=== PATIENT | female | born 1950 | race Caucasian/White ===

== ENCOUNTER 2017-11-20 16:02 | Inpatient (IN) ==
[2017-11-20] MEDS ORDERED: NS 1,000 ML IV ONE (17:00)
[2017-11-20] MEDS ORDERED: MORPHINE SULFATE 4mg INJECTION IVP ONE (17:00)
[2017-11-20] MEDS ORDERED: ONDANSETRON 4 MG/2 ML INJECTION IVP ONE (17:00)
--- NOTE | 2017-11-20 17:00 | Emergency Department Report ---
Abdominal Pain HPI - General Chief Complaint: Abdominal Pain <Arnulfo Winters C - 11/20/17 21:37> Stated Complaint: abd pain, N/D/V, blood in urine <Arnulfo Winters C - 11/20/17 21 :37> Time Seen by Provider: 11/20/17 17:00 <Arnulfo Winters Natalie - 11/20/17 21:37> Source: patient, family <Rk Sabillon Q - 11/20/17 18:44> Mode of arrival: wheelchair <Rk Sabillon Q - 11/20/17 18:44> Limitations: no limitations <Rk Sabillon Q - 11/20/17 18:44> - History of Present Illness HPI narrative: Patient is a 67-year-old female, wheelchair-bound neurogenic bladder. Patient states she gets multiple UTIs in the past. Patient saw her primary medical physician on Friday for general checkup with no issues. Patient on Friday began to feel some mild nausea with some frequency and some hematuria. Patient does have a Bactrim prescription to take as needed for urinary tract infection started the Bactrim on Friday. Patient continuing to have nausea which she admits she gets sometimes with the Bactrim, and increasing feeling of not well, now complaining of left lower quadrant pain. Patient subjective chills no fevers that she can identify at home. Patient continuing have nausea no emesis has had 2 episodes of diarrhea in the last 24 hours. Patient referred to the ER for evaluation by primary medical physician <Rk Sabillon Q - 11/20/17 18:44> - Related Data Home Medications Medication Instructions Recorded Confirmed Aspirin [Ecotrin] 81 mg PO DAILY 11/20/17 11/20/17 Baclofen Pump 1 dose INJ DAILY 11/20/17 11/20/17 Diazepam [Valium] 5 mg PO HS 11/20/17 11/20/17 Estradiol Vag Cream [Estrace Vag 1 applicatio TOP DAILY 11/20/17 11/20/17 Cream] Hydrocodone/APAP 5/325 [[place] 1 - 2 tab PO TID PRN 11/20/17 11/20/17 5/325] Lisinopril [Prinivil] 10 mg PO HS 11/20/17 11/20/17 Omeprazole [Omeprazole] 40 mg PO DAILY 11/20/17 11/20/17 Oxaprozin [Daypro] 600 mg PO BID 11/20/17 11/20/17 Sertraline [Zoloft] 200 mg PO DAILY 11/20/17 11/20/17 Sulfamethox/Tmp Ds *Ed Prepack 1 tab PO BID 11/20/17 11/20/17 [Bactrim Ds 800/160 *Ed Prepack*] <Arnulfo Winters - 11/20/17 21:37> Allergies Allergy/AdvReac Type Severity Reaction Status Date / Time tolterodine [From Detrol] AdvReac Intermediate Nausea Verified 11/20/17 16:25 ciprofloxacin AdvReac Unknown EXTREME Verified 11/20/17 16:32 WEAKNESS AND NAUSEA levofloxacin AdvReac Unknown EXTREME Verified 11/20/17 16:32 NAUSEA <Arnulfo Winters - 11/20/17 21:37> Review of Systems Constitutional: Reports: chills, weakness. Denies: fever <Rk Sabillon Q - 11/20/17 18:44> Eyes: Denies: eye pain, eye discharge <Rk Sabillon Q - 11/20/17 18:44> ENT: Denies: throat pain, dental pain <Jonelle Sabillonn Q - 11/20/17 18:44> Cardiovascular: Denies: chest pain, palpitations, dyspnea on exertion <Rk Sabillon Q - 11/20/17 18:44> Respiratory: Denies: cough, dyspnea, wheezes <Jonelle Sabillonn Q - 11/20/17 18:44 > Gastrointestinal: Reports: abdominal pain, nausea, diarrhea. Denies: vomiting <Rk Sabillon Q - 11/20/17 18:44> Genitourinary: Reports: frequency, hematuria. Denies: dysuria <Jonelle Sabillonn Q - 11/20/17 18:44> Neurological: Denies: headache <Jonelle Sabillonn Q - 11/20/17 18:44> Psychiatric: Denies: anxiety <Jonelle Sabillonn Q - 11/20/17 18:44> Endocrine: Denies: fatigue <Jonelle Sabillonn Q - 11/20/17 18:44> Hematological/Lymphatic: Denies: easy bleeding <Rk Sabillon Q - 11/20/17 18: 44> PFSH Patient Stated Medical History Hypertension Yes Gastroesophageal Reflux Yes Disease Hx Urinary Tract Infection Yes: started bactrim friday11-17-17 Other Musculoskeletal Yes: intrathecal baclofen pump Depression Yes <Arnulfo Winters C - 11/20/17 21:37> Patient Stated Medical History Hypertension Yes Gastroesophageal Reflux Yes Disease Hx Urinary Tract Infection Yes: started bactrim friday11-17-17 Other Musculoskeletal Yes: intrathecal baclofen pump Depression Yes <Rk Sabillon Q - 11/20/17 17:00> Surgical History: Cholecystectomy <Rk Sabillon Q - 11/20/17 18:44> - Social History Smoking status: Never smoker <Rk Sabillon Q - 11/20/17 17:00> Substance use type: does not use <Rk Sabillon Q - 11/20/17 18:44> Alcohol intake frequency: does not drink <Rk Sabillon Q - 11/20/17 18:44> Physical Exam - General General appearance: alert, in no apparent distress <Rk Sabillon Q - 18:44> - Head Head exam: normocephalic <Rk Sabillon Q - 11/20/17 18:44> - Eye Eye exam: Present: PERRL, EOMI <Rk Sabillon Q - 11/20/17 18:44> - ENT ENT exam: Present: normal oropharynx, mucous membranes moist <Rk Sabillon Q - 11/20/17 18:44> - Neck Neck exam: Present: full ROM, trachea midline <Rk Sabillon Q - 11/20/17 18: 44> - Chest Chest inspection: Present: symmetric chest wall rise. Absent: tenderness < Rk Sabillon Q - 11/20/17 18:44> - Respiratory Respiratory exam: Present: normal lung sounds bilaterally. Absent: respiratory distress, wheezes, stridor <Rk Sabillon Q - 11/20/17 18:44> - Cardiovascular Cardiovascular exam: Present: regular rate, normal rhythm, normal heart sounds <Rk Sabillon Q - 11/20/17 18:44> - Abdominal Exam Abdominal exam: Present: soft, tenderness (left lower quadrant tenderness), guarding, normal bowel sounds. Absent: distention, rebound <Rk Sabillon Q - 04/12/18 18:44> - Skin Skin exam: Present: warm, dry <Rk Sabillon Q - 11/20/17 18:44> - Neurological Exam Neurological exam: Present: alert, oriented X3 <Rk Sabillon Q - 11/20/17 18: 44> - Psychiatric Psychiatric exam: Present: normal affect, normal mood <Rk Sabillon Q - 11/20 18:44> Course Vital Signs Pulse Rate 66 11/20/17 16:05 Respiratory Rate 20 11/20/17 16:05 Blood Pressure 155/70 H 11/20/17 16:05 Pulse Oximetry 95 11/20/17 16:05 Pulse Rate 66 11/20/17 19:30 Respiratory Rate 16 11/20/17 19:00 Blood Pressure 127/59 11/20/17 19:30 Pulse Oximetry 95 11/20/17 19:30 <Arnulfo Winters C - 11/20/17 21:37> Vital Signs Pulse Rate 66 11/20/17 16:05 Respiratory Rate 20 11/20/17 16:05 Blood Pressure 155/70 H 11/20/17 16:05 Pulse Oximetry 95 11/20/17 16:05 Pulse Rate 68 11/20/17 16:41 Respiratory Rate 16 11/20/17 16:41 Blood Pressure 136/65 11/20/17 16:41 Pulse Oximetry 95 11/20/17 16:41 <Rk Sabillon Q - 11/20/17 17:00> Abdominal Pain - MDM Narrative Medical decision making narrative: Labs / imaging were discussed in detail with the patient and family and questions are answered. She is given gentle IV hydration. She is given Rocephin 1 g intravenously. She does not meet sepsis criteria in the emergency department. She will be admitted for UTI, dehydration , and acute kidney injury. Patient is in agreement with the current plan of management. She is discussed with Dr. Devendra Gallagher and admitted to his service in improved condition. No further orders from accepting physician who is in agreement with the current plan of management. She is admitted to the hospitalist service in improved condition. She was given parental narcotic and antiemetic medication intravenously with improvement of symptoms. Temp: 98.8 F. <Arnulfo Winters - 11/20/17 20:28> - Differential Diagnosis Differential diagnosis: Likely: abdominal pain, acute appendicitis, calculus of kidney, constipation, diverticulitis, endometriosis, gastroenteritis, pancreatitis, small bowel obstruction <Rk Sabillon Q - 11/20/17 18:44> - Lab Data Result diagrams: 11/20/17 17:14 11/20/17 17:14 <Arnulfo Winters C - 11/20/17 21:37> Lab Results 11/20/17 11/20/17 11/20/17 Range/Units 17:14 17:14 17:14 WBC 8.0 (4.5-11.0) T/MM3 RBC 3.81 L (4.00-5.20) M/MM3 Hgb 12.4 (12-16) GM/DL Hct 38.5 (36-46) % MCV 101.0 H (80-100) UM3 MCH 32.5 (26-34) UUG MCHC 32.2 (31-37) GM/DL RDW Std Deviation 55.3 H (36.9-50.2) FL Plt Count 167 (130-400) T/MM3 MPV 10.2 (9.4-12.4) UM3 Immature Gran % (Auto) 0.4 (0.0-0.5) % Neut % (Auto) 64.2 (33-66) % Lymph % (Auto) 28.7 (23-45) % [place] % (Auto) 5.5 (0-9.0) % Eos % (Auto) 1.1 (0-4) % Baso % (Auto) 0.1 (0-2) % Neut # (Auto) 5.2 (1.8-7.7) T/MM3 Lymph # (Auto) 2.3 (1-4.8) T/MM3 [place] # (Auto) 0.4 (0-0.8) T/MM3 Eos # (Auto) 0.1 (0-0.5) T/MM3 Baso # (Auto) 0.0 (0-0.2) T/MM3 Abs Immat Gran (auto) 0.03 (0.00-0.03) T/MM3 Turbidity < 20 (0-20) Sodium 142 (134-144) MEQ/L Potassium 5.2 H (3.6-5) MEQ/L Chloride 108 H (98-107) MEQ/L Carbon Dioxide 19 L (22-30) MEQ/L Anion Gap 15 (5-15) meq/L BUN 45.0 H (7-17) MG/DL Creatinine 2.6 H (0.7-1.2) mg/dL GFR Calculation 18 BUN/Creatinine Ratio 17 (6-26) RATIO Glucose 82 (65-110) MG/DL Calculated Osmolality 284 H (261-280) MOSM/KG Calcium 9.3 (8.4-10.2) MG/DL Total Bilirubin 0.30 (0.20-1.30) MG/DL Icterus Index < 2 (0-7) AST 23 (14-36) U/L ALT 14 (1-35) U/L Alkaline Phosphatase 76 (38-126) U/L Troponin I < 0.012 (0-0.12) ng/ml Total Protein 6.7 (6.3-8.2) g/dL Albumin 4.0 (3.5-5.0) g/dL Globulin 2.7 (2.4-3.6) G/DL Albumin/Globulin Ratio 1.5 (1.1-2.2) RATIO Lipase 129 (23-300) U/L Specimen Hemolysis 24 (0-25) Ur Collection Type Urine, void-cc/notcc Urine Color Yellow (YELLOW) Urine Clarity Sl cloudy Urine pH 6.0 (5.0-8.0) Ur Specific [place] 1.025 (1.015-1.025) Urine Protein 2+ A (NEGATIVE) Urine Glucose (UA) Negative (NEGATIVE) Urine Ketones Trace A (NEGATIVE) Urine Occult Blood 3+ A (NEGATIVE) Urine Nitrate Positive A (NEGATIVE) Urine Bilirubin Negative (NEGATIVE) Urine Urobilinogen 0.2 (NORMAL) EU/DL Ur Leukocyte Esterase 3+ A (NEGATIVE) Urine RBC 3-5 H (0-3) /HPF Urine WBC Tntc H (0-5) /HPF Urine Bacteria 4+ H (NEGATIVE) Ur Culture Indicated? Cult reflexed &setup <Arnulfo Winters 11/20/17 20:28> - Radiology Data CT abdomen/pelvis: No generalized ileus or obstruction. Scattered diverticuli without diverticulitis. Possible cystitis. Small hiatal hernia. <Arnulfo Winters 11/20/17 20:28> Disposition Clinical Impression: KALI (acute kidney injury), Dehydration UTI (urinary tract infection) Qualifiers: Urinary tract infection type: acute cystitis Hematuria presence: with hematuria Qualified Code(s): N30.01 - Acute cystitis with hematuria <Arnulfo Winters 11/20/17 20:28> Disposition: 02 To [facility] <Arnulfo Winters 11/20/17 20:28> Condition: Improved <Arnulfo Winters 11/20/17 20:28> Instructions: <Arnulfo Winters 11/20/17 21:37> Prescriptions: No Action Aspirin [Ecotrin] 81 mg PO DAILY Omeprazole [Omeprazole] 40 mg PO DAILY Baclofen Pump 1 dose INJ DAILY Sulfamethox/Tmp Ds *Ed Prepack [Bactrim Ds 800/160 *Ed Prepack*] 1 tab PO BID Lisinopril [Prinivil] 10 mg PO HS Hydrocodone/APAP 5/325 [[place] 5/325] 1 - 2 tab PO TID PRN PRN Reason: Pain Sertraline [Zoloft] 200 mg PO DAILY Diazepam [Valium] 5 mg PO HS Estradiol Vag Cream [Estrace Vag Cream] 1 applicatio TOP DAILY Oxaprozin [Daypro] 600 mg PO BID <Arnulfo Winters 11/20/17 21:37> Referrals: Albert Ramos MD [Primary Care Provider] - <Arnulfo Winters 11/20/17 21:37> Forms: <Arnulfo Winters 11/20/17 21:37> Time of Disposition: 18:32 (Admit. Dr. Gallagher. ) <Arnulfo Winters 11/20/17 20:28 > - Seen By: physician <Arnulfo Winters 11/20/17 20:28>
--- OUTSIDE RECORDS SUMMARY | 2017-11-20 17:17 | External Medical Summary | Referral Summary ---
:1950 Author Organization [facility] [place] [id number] Care Team Providers Name Role Phone Albert Ramos Primary Care Physician Encounter [facility] [id number] Date(s): 05/17/16 - 05/17/16 [facility] [place] [phone] [place] Discharge Diagnosis: Abnormal blood sugar Discharge Diagnosis: Adult-onset obesity Discharge Diagnosis: Wheelchair dependent Discharge Diagnosis: Depression Discharge Diagnosis: GERD without esophagitis Discharge Diagnosis: Edema Discharge Diagnosis: Acute UTI Discharge Diagnosis: CKD (chronic kidney disease), stage 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 Discharge Disposition: 01-Home or Self Care Attending Physician: Albert Ramos MD Admitting Physician: Albert aRmos MD Vital Signs Most recent to oldest [Reference Range]: 1 Blood Pressure [90-140/60-90 mmHg] 140/90 mmHg (05/17/16 1:10 PM) Problem List Condition Effective Dates Status Health Status Informant Adult-onset obesity(Confirmed) Active Abnormal blood sugar(Confirmed) Active CKD (chronic kidney disease), stage Active II(Confirmed) Cough(Confirmed) Active Depression(Confirmed) Active Depression(Confirmed) Active GERD without esophagitis(Confirmed) Active History of IBS(Confirmed) Active Hereditary sensory motor Active neuropathy(Confirmed) Hereditary spastic paraplegia Active (disorder)(Confirmed) Hyperlipidemia(Confirmed) 2008 Active Hypertension(Confirmed) 2008 Active Irritable bowel syndrome(Confirmed) Active Muscle spasticity(Confirmed) Active Neuromuscular disorder(Confirmed) Active Spasm (finding)(Confirmed) Active Spastic paraplegia, Active hereditary(Confirmed) Wheelchair dependent(Confirmed) Active Allergies, Adverse Reactions, Alerts Substance Reaction Severity Status ciprofloxacin Active Detrol1 Active levofloxacin Active 1extreme weakness Medications albuterol CFC free 90 mcg/inh inhalation aerosol 2 puffs, Inhalation, q4hr, as needed for wheezing, # 18 g, 0 Refill(s), Pharmacy : [facility] [id number] Start Date: 08/22/15 Status: Orderedaspirin 325 mg, Oral, Daily, 0 Refill(s) Start Date: 02/08/14 Status: Orderedbaclofen See Instructions, 177 mg per 24 hours per pump, 0 Refill(s) Start Date: 07/13/14 Status: OrderedDaypro 600 mg oral tablet See Instructions, 1 TABS ORAL BID,X90 DAYS, # 180 tabs, eRx: [facility] [id number], 1 TABS ORALBID,X90 DAYS Start Date: 07/24/15 Status: Ordereddiazepam 5 mg oral tablet 1-4 tabs, Oral, Daily, RX must last 30 days. Rubi, # 60 tabs, 0 Refill(s) Start Date: 05/08/16 Status: OrderedEstrace Vaginal 0.1 mg/g vaginal cream Vaginal, 3x/Wk, 0 Refill(s) Start Date: 11/16/15 Status: Orderedlisinopril 10 mg oral tablet See Instructions, TAKE 1 TABLET BY MOUTH EVERY NIGHT AT BEDTIME, # 90 tabs, 1 Refill(s), eRx: [facility] [id number], TAKE 1 TABLET BY MOUTH EVERY NIGHT AT BEDTIME Start Date: 04/27/16 Status: OrderedNorco 5 mg-325 mg oral tablet 1-2 tabs, Oral, TID, as needed for pain, # 40 tabs, 0 Refill(s) Start Date: 05/17/16 Status: Orderedomeprazole 40 mg oral delayed release capsule See Instructions, TAKE 1 CAPSULE BY MOUTH EVERY DAY, # 30 caps, 6 Refill(s), eRx : [facility] [id number], TAKE 1 CAPSULE BY MOUTH EVERY DAY Start Date: 12/29/15 Status: Orderedoxaprozin 600 mg oral tablet See Instructions, TAKE 1 TABLET BY MOUTH TWICE DAILY, # 180 tabs, eRx: [facility] , TAKE 1 TABLET BY MOUTH TWICE DAILY Start Date: 12/29/15 Status: Orderedsertraline 50 mg oral tablet See Instructions, TAKE 1 TABLET BY MOUTH EVERY DAY, # 90 tabs, eRx: [facility] [id number], TAKE1 TABLET BY MOUTH EVERY DAY Start Date: 03/26/16 Status: Ordered Results No data available for this section Immunizations Vaccine Date Refusal Reason tetanus/diphth/pertuss (Tdap) adult/adol 07/18/08 influenza virus vaccine, inactivated 04/11/16 influenza virus vaccine, inactivated1 05/04/15 influenza virus vaccine, inactivated 05/16/14 influenza virus vaccine, live 05/12/13 influenza virus vaccine, live 05/25/12 pneumococcal 23-polyvalent vaccine 07/18/08 pneumococcal 23-polyvalent vaccine 05/04/03 1Location History: [facility] Procedures Procedure Date Related Diagnosis Body Site COLORECTAL CANCER SCREENING; COLONOSCOPY ON 05/03/15 INDIVIDUAL NOT MEETING CRITERIA FOR HIGH RISK1 Esophagogastroduodenoscopy and biopsy2 05/03/15 Cholecystectomy Surgery - baclofen pump replacement Surgery - left ring finger tendon repair 1Diverticulosis, repeat in 10 [id number] dilatation to 54 [place] of the distal esophagus. Gastric ulcer, pathology indicating reactive gastropathy. Schatzki' s ring. Hiatal hernia. Negative for Hooks's, negative for H. pylori. Social History Social History Type Response Smoking Status Never smoker Assessment and Plan Extracted from: Title: Ambulatory Patient Education Author: Albert Ramos MD Date: Family Medicine Antibiotic Medication Antibiotics are among the most frequently prescribed medicines. Antibiotics cure illness by assisting our body to injure or kill the bacteria that cause infection. While antibiotics are useful to treat a wide variety of infections they are useless against viruses. Antibiotics cannot cure colds, flu, or other viral infections. There are many types of antibiotics available. Your caregiver will decide which antibiotic will be useful for an illness. Never take or give someone else' s antibiotics or left over medicine. Your caregiver may also take into account: Allergies. The cost of the medicine. Dosing schedules. Taste. Common side effects when choosing an antibiotic for an infection. Ask your caregiver if you have questions about why a certain medicine was chosen. HOME CARE INSTRUCTIONS Read all instructions and labels on medicine bottles carefully. Some antibiotics should be taken on an empty stomach while others should be taken with food. Taking antibiotics incorrectly may reduce how well they work. Some antibiotics need to be kept in the refrigerator. Others should be kept at room temperature. Ask your caregiver or pharmacist if you do not understand how to give the medicine. Be sure to give the amount of medicine your caregiver has prescribed. Even if you feel better and your symptoms improve, bacteria may still remain alive in the body. Taking all of the medicine will prevent: The infection from returning and becoming harder to treat. Complications from partially treated infections. If there is any medicine left over after you have taken the medicine as your caregiver has instructed, throw the medicine away. Be sure to tell your caregiver if you: Are allergic to any medicines. Are or intend to become while using this medicine. Are . Are taking any other prescription, non-prescription medicine, or herbal remedies. Have any other medical conditions or problems you have not already discussed. If you are taking control pills, they may not work while you are on antibiotics. To avoid unwanted : Continue taking your control pills as usual. Use a second form of control (such as condoms) while you are taking antibiotic medicine. When you finish taking the antibiotic medicine, continue using the second form of control until you are finished with your current 1 month cycle of control pills. Try not to miss any doses of medicine. If you miss a dose, take it as soon as possible. However, if it is almost time for the next dose and the dosing schedule is: 2 doses a day, take the missed dose and the next dose 5 to 6 hours apart. 3 or more doses a day, take the missed dose and the next dose 2 to 4 hours apart, then go back to the normal schedule. If you are unable to make up a missed dose, take the next scheduled dose on time and complete the missed dose at the end of the prescribed time for your medicine. SIDE EFFECTS TO TAKING ANTIBIOTICS Common side effects to antibiotic use include: Soft stools or diarrhea. Mild stomach upset. Sun sensitivity. SEEK MEDICAL CARE IF: If you get worse or do not improve within a few days of starting the medicine. Vomiting develops. Diaper rash or rash on the genitals appears. Vaginal itching occurs. White patches appear on the tongue or in the mouth. Severe watery diarrhea and abdominal cramps occur. Signs of an allergy develop (hives, unknown itchy rash appears). STOP TAKING THE ANTIBIOTIC. SEEK IMMEDIATE MEDICAL CARE IF: Urine turns dark or blood colored. Skin turns yellow. Easy bruising or bleeding occurs. Joint pain or muscle aches occur. Fever returns. Severe headache occurs. Signs of an allergy develop (trouble breathing, wheezing, swelling of the lips, face or tongue, fainting, or blisters on the skin or in the mouth). STOP TAKING THE ANTIBIOTIC. This information is not intended to replace advice given to you by your health care provider. Make sure you discuss any questions you have with your health care provider. Document Released: 04/09/2005 Document Revised: 08/18/2015 Document Reviewed: 04/19/2010 [facility] Patient Information 2016 [employer] [facility]. No follow up information was provided. Extracted from: Title: Office Visit Note Author: Albert Ramos MD Date: 05/17/16 Assessment/Plan Abnormal blood sugar This issue was reviewed, appears stable, and current therapy continued except as mentioned. Appropriate lab was reviewed from the most recent appropriate entry and lab was order ed if needed in the cpoe/nursing orders, and follow up recommended generally in 90 days and no later then six months. Lab stable. Acute UTI The patient's issue is nearly or completely resolved. There is no further issues or testing desired by them at this time. We discussed several options for treatment for this condition. The patient declined any changes or other treatments at this time. Declines lab. Adult-onset obesity Diet and exercise as tolerated and feasible. Consider medication when interested. We discussed several options for treatment for this condition. The patient declined any changes or other treatments at this time. Victoza discussed and declined due to expense. CKD (chronic kidney disease), stage II This issue was reviewed, appears stable, and current therapy continued except as mentioned. Appropriate lab was reviewed from the most recent appropriate entry and lab was ordered if needed in the cpoe/nursing orders, and follow up recommended generally in 90 days and no later then six months. Depression This issue was reviewed, appears stable, and current therapy continued except as mentioned. Appropriate lab was reviewed from the most recent appropriate entry and lab was ordered if need ed in the cpoe/nursing orders, and follow up recommended generally in 90 days and no later then six months. Mood stable. The patient has family members present who are agreeable with today's plan and have no additional concerns or requests. here. Edema We discussed several options for treatment for this condition. The patient declined any changes or other treatments at this time. Lab when willing. Support hose/etc. Ordered: B-Type Natriuretic Peptide CBC w/ Differential Comprehensive Metabolic Panel TSH with Reflex Free T4 GERD without esophagitis This issue was reviewed, appears stable, and current therapy continued except as mentioned. Appropriate lab was reviewed from the most recent appropriate entry and lab was o rdered if needed in the cpoe/nursing orders, and follow up recommended generally in 90 days and no later then six months. 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 Appropriate lab was reviewed from the most recent appropriate entry an d lab was ordered if needed in the cpoe/nursing orders, and follow up recommended generally in 90 days and no later then six months. ToDr. Lorenzo Carolina at her request. Wheelchair dependent This issue was reviewed, appears stable, and current therapy continued except as mentioned. Appropriate lab was reviewed from the most recent appropriate entry and lab was order ed if needed in the cpoe/nursing orders, and follow up recommended generally in 90 days and no later then six months.
--- OUTSIDE RECORDS SUMMARY | 2017-11-20 17:17 | External Medical Summary | Referral Summary ---
:1950 Author Organization [facility], [facility] Address [address] [place] [address] [place] [phone] Care Team Providers Name Role Phone Albert Ramos Primary Care Physician Encounter VC Date(s): 04/11/15 - 04/11/15 [facility], [address] [place] [phone] Discharge Diagnosis: Dysphagia Discharge Diagnosis: H/O thyroid nodule Discharge Diagnosis: Colon cancer screening Discharge Disposition: 01-Home or Self Care Attending Physician: Abelardo Bass MD Admitting Physician: Abelardo Bass MD Referring Physician: Albert Ramos MD Vital Signs Most recent to oldest [Reference Range]: 1 Temperature Tympanic [36.6-38.1 degC] 37.1 degC (04/11/15 1:25 PM) Blood Pressure [90-140/60-90 mmHg] 108/60 mmHg (04/11/15 1:25 PM) Problem List Condition Effective Dates Status [...] Spasm (finding)(Confirmed) Active Spastic paraplegia, Active hereditary(Confirmed) Allergies, Adverse Reactions, Alerts Substance Reaction Severity Status ciprofloxacin Active levofloxacin Active Medications albuterol CFC free 90 mcg/inh inhalation aerosol 2 puffs, Inhalation, q4hr, as needed for wheezing, # 18 g, 0 Refill(s), Pharmacy : [facility] [id number] Start Date: 08/22/15 Status: Orderedaspirin 325 mg, Oral, Daily, 0 Refill(s) Start Date: 02/08/14 Status: Orderedbaclofen See Instructions, 177 mg per 24 hours per pump, 0 Refill(s) Start Date: 07/13/14 Status: OrderedDaypro 600 mg oral tablet See Instructions, 1 TABS ORAL BID,X90 DAYS, # 180 tabs, eRx: [id number], 1 TABS ORALBID,X90 DAYS Start Date: 07/24/15 Status: Ordereddiazepam 5 mg oral tablet 1-4 tabs, Oral, Daily, Must last 30 days. [facility] Due to be filled., # 60 tabs, 0 Refill(s) Start Date: 09/28/15 Status: OrderedNorco 5 mg-325 mg oral tablet 1-2 tabs, Oral, TID, as needed for pain, # 40 tabs, 0 Refill(s) Start Date: 04/07/15 Status: Orderedomeprazole Oral, Daily, 0 Refill(s) Start Date: 08/22/15 Status: OrderedZestril 10 mg oral tablet See Instructions, 1 TABS ORAL BEDTIME (ONCE A DAY),X90 DAYS, # 90 tabs, eRx: [facility] [id number], 1 TABS ORAL BEDTIME (ONCE A DAY),X90 DAYS Start Date: 07/24/15 Status: OrderedZoloft 50 mg oral tablet See Instructions, 1 TABS ORAL DAILY,X90 DAYS, # 90 tabs, 1 Refill(s), eRx: [facility] [id number], 1 TABS ORAL DAILY,X90 DAYS Start Date: 10/02/15 Status: Ordered Results No data available for this section Immunizations Vaccine Date Refusal Reason tetanus/diphth/pertuss (Tdap) adult/adol 07/18/08 influenza virus vaccine, inactivated1 05/04/15 influenza virus vaccine, inactivated 05/16/14 influenza virus vaccine, live 05/12/13 influenza virus vaccine, live 05/25/12 pneumococcal 23-polyvalent vaccine 07/18/08 pneumococcal 23-polyvalent vaccine 05/04/03 1Location History: [facility] Procedures Procedure Date Related Diagnosis Body Site COLORECTAL CANCER SCREENING; COLONOSCOPY ON 05/03/15 INDIVIDUAL NOT MEETING CRITERIA FOR HIGH RISK1 Esophagogastroduodenoscopy and biopsy2 05/03/15 Cholecystectomy Surgery - baclofen pump replacement Surgery - left ring finger tendon repair 1Diverticulosis, repeat in 10 [id number] dilatation to 54 Slovenian of the distal esophagus. Gastric ulcer, pathology indicating reactive gastropathy. Schatzki' s ring. Hiatal hernia. Negative for Hooks's, negative for H. pylori. Social History Social History Type Response Smoking Status Never smoker Assessment and Plan Extracted from: Title: Office Visit Note Author: Abelardo Bass MD Date: 04/11/15 Assessment/Plan Colon cancer screening Ordered: Office Visit Level 4 New 14883 Dysphagia Ordered: Office Visit Level 4 New 85476 H/O thyroid nodule Ordered: Office Visit Level 4 New 66299 Plan: Bidirectional Endoscopy. I did review the patient's chartincluding office note performed by her primary care physician from April 07, 2015. Reviewed lab work from this date consisting of CBC CMP. This is foun d to be essentially within normal limits. [facility] Did reviewthyroid ultrasound from April 11, 2015 that revealed a multinodularg oiter. This was compared to a CT scan in 2008 6 years ago. These nodules had not significantly changed over a 6year period of time. Majority of noduleswere around 1-2 cm in size. I informed the patient that secondary to her history for dysphagia I would recommend proceeding with esophagogastroduodenoscopywith possible dilatation. I would also recommend at the same setting that she und ergo a colonoscopy to serve as a portion of her overall colorectal cancer surveillance. Lastly I informed the patient that I did not feel that her thyroid nodules were highly worrisome in naturegive n the fact that they have been present over the course the last 6 years have not significant a change. Typically in a nodule greater than a centimeter we tend to proceed with fine-needle aspiration. In her particular situation however I do not feel that there is any need at this time to proceed withFNA/further evaluation of her thyroid nodules.Risk of endoscopy was discussed with the patient. Risks include but are not inclusive of bleeding and/or perforation requiring surgery. Patient understood and was scheduled.
--- OUTSIDE RECORDS SUMMARY | 2017-11-20 17:17 | External Medical Summary | Referral Summary ---
:1950 Author Organization [facility] Address [address] [place] [address] [place] [phone] Care Team Providers Name Role Phone Albert Ramos Primary Care Physician Encounter VC Date(s): 04/07/15 - 04/07/15 [facility] [place] [phone] [place] Discharge Disposition: 01-Home or Self Care Attending Physician: Albert Ramos MD Admitting Physician: Albert Ramos MD Vital Signs Most recent to oldest [Reference Range]: 1 Blood Pressure [90-140/60-90 mmHg] 120/80 mmHg (04/07/15 1:36 PM) Problem List Condition Effective Dates Status [...] # 18 g, 0 Refill(s), Pharmacy : [id number] Start Date: 08/22/15 Status: Orderedaspirin 325 mg, Oral, Daily, 0 Refill(s) Start Date: 02/08/14 Status: Orderedbaclofen See Instructions, 177 mg per 24 hours per pump, 0 Refill(s) Start Date: 07/13/14 Status: OrderedDaypro 600 mg oral tablet See Instructions, 1 TABS ORAL BID,X90 DAYS, # 180 tabs, eRx: [id number], 1 TABS ORALBID,X90 DAYS Start Date: 07/24/15 [...] A DAY),X90 DAYS, # 90 tabs, eRx: [facility] 50595, 1 TABS ORAL BEDTIME (ONCE A DAY),X90 DAYS Start Date: 07/24/15 Status: OrderedZoloft 50 mg oral tablet See Instructions, 1 TABS ORAL DAILY,X90 DAYS, # 90 tabs, 1 Refill(s), eRx: [facility] [id number], 1 TABS ORAL DAILY,X90 DAYS Start Date: 10/02/15 Status: Ordered Results Hematology Most recent to oldest [Reference Range]: 1 WBC [4.8-10.8 10*3/uL] 7.2 10*3/uL (04/07/15 2:28 PM) RBC [4.00-5.20] 3.76 *LOW* (04/07/15 2:28 PM) Hgb [12.0-16.0 gm/dL] 12.7 gm/dL (04/07/15 2:28 PM) Hct [37.0-47.0 %] 38.9 % (04/07/15 2:28 PM) MCV [82.0-99.0 fL] 103.5 fL *HI* (04/07/15 2:28 PM) MCH [27.0-32.0 pg] 33.8 pg *HI* (04/07/15 2:28 PM) MCHC [32.0-36.0 gm/dL] 32.6 gm/dL (04/07/15 2:28 PM) RDW [11.5-14.5 %] 14.7 % *HI* (04/07/15 2:28 PM) Platelet [150-400 10*3/uL] 232 10*3/uL (04/07/15 2:28 PM) MPV [8.8-14.8 fL] 10.7 fL (04/07/15 2:28 PM) Immature Granulocytes [0.0-1.0 %] 0.3 % (04/07/15 2:28 PM) Neutrophils [51-75 %] 41 % *LOW* (04/07/15 2:28 PM) Lymphocytes [20-46 %] 47 % *HI* (04/07/15 2:28 PM) Monocytes [4-11 %] 9 % (04/07/15 2:28 PM) Eosinophils [0-4 %] 2 % (04/07/15 2:28 PM) Basophils [0-2 %] 0 % (04/07/15 2:28 PM) Neutro Absolute [1.90-7.00 10*3] 2.98 10*3 (04/07/15 2:28 PM) Lymph Absolute [0.80-3.30 10*3] 3.42 10*3 *HI* (04/07/15 2:28 PM) [place] Absolute [0.30-1.00 10*3] 0.64 10*3 (04/07/15 2:28 PM) Eos Absolute [0.00-0.50 10*3] 0.13 10*3 (04/07/15 2:28 PM) Baso Absolute [0.00-0.20 10*3] 0.02 10*3 (04/07/15 2:28 PM) Chemistry Most recent to oldest [Reference Range]: 1 Sodium Lvl [135-144 mEq/L] 137 mEq/L (04/07/15 2:28 PM) Potassium Lvl [3.5-5.2 mEq/L] 4.4 mEq/L (04/07/15 2:28 PM) Chloride [99-111 mEq/L] 105 mEq/L (04/07/15 2:28 PM) CO2 [22-31 mEq/L] 25 mEq/L (04/07/15 2:28 PM) AGAP [3-20] 7 (04/07/15 2:28 PM) BUN [10-20 mg/dL] 26 mg/dL *HI* (04/07/15 2:28 PM) Glucose Lvl [70-99 mg/dL] 89 mg/dL (04/07/15 2:28 PM) Creatinine Lvl [0.57-1.11 mg/dL] 1.22 mg/dL *HI* (04/07/15 2:28 PM) eGFR [>60 mL/min] 44 mL/min 1 *ABN* (04/07/15 2:28 PM) Calcium Lvl [8.9-10.5 mg/dL] 9.5 mg/dL (04/07/15 2:28 PM) Albumin Lvl [3.4-4.8 gm/dL] 4.0 gm/dL (04/07/15 2:28 PM) Total Protein [6.2-8.1 gm/dL] 6.7 gm/dL (04/07/15 2:28 PM) Globulin [1.8-4.0 gm/dL] 2.7 gm/dL (04/07/15 2:28 PM) ALT [0-55 U/L] 12 U/L (04/07/15 2:28 PM) AST [5-34 U/L] 16 U/L (04/07/15 2:28 PM) Alk Phos [40-150 U/L] 54 U/L (04/07/15 2:28 PM) Bili Total [0.2-1.2 mg/dL] 0.4 mg/dL (04/07/15 2:28 PM) TSH with Reflex Free T4 [0.35-4.94] 0.76 (04/07/15 2:28 PM) 1Result Comment: Multiply eGFR results by 1.21 for race.Urinalysis Most recent to oldest [Reference Range]: 1 UA Color Yellow (04/07/15 2:41 PM) UA Appear Cloudy *ABN* (04/07/15 2:41 PM) UA pH [5.0-8.0] 5.5 (04/07/15 2:41 PM) UA Leuk Est [Negative] Pos 2+ *ABN* (04/07/15 2:41 PM) UA Nitrite [Negative] Positive *ABN* (04/07/15 2:41 PM) UA Protein [Negative] Negative (04/07/15 2:41 PM) UA Glucose [Negative] Negative (04/07/15 2:41 PM) UA Ketones [Negative] Negative (04/07/15 2:41 PM) UA Urobilinogen [<1.0 mg/dL] 0.2 mg/dL (04/07/15 2:41 PM) UA Bili [Negative] Negative (04/07/15 2:41 PM) UA Blood [Negative] Trace *ABN* (04/07/15 2:41 PM) UA Spec Grav [1.003-1.030] 1.016 (04/07/15 2:41 PM) Type Voided (04/07/15 2:41 PM) UA WBC [0-4 /HPF] >50 /HPF *ABN* (04/07/15 2:41 PM) UA RBC [0-4] 5-10 *ABN* (04/07/15 2:41 PM) Epithelial Cells 20-50 (04/07/15 2:41 PM) UA Bacteria Numerous *ABN* (04/07/15 2:41 PM) UA Mucous Present (04/07/15 2:41 PM) Microbiology Reports TEST:Urine Culture1 STATUS:Auth (Verified) BODY SITE: SOURCE:Urine COLLECTED DATE/TIME:04/07/15 2:41 PMUrine CultureEscherichia coli >100,000 cfu/ml ORGANISM:Escherichia coliINTERPRETIVE DATA1Sterile clean catch urine specimen.Done@[facility]. [place] cup/benites tube with boric acid Immunizations Vaccine Date Refusal Reason tetanus/diphth/pertuss (Tdap) [...] finger tendon repair 1Diverticulosis, repeat in 10 [id number] dilatation to 54 Setsw[place] of the distal esophagus. Gastric ulcer, pathology indicating reactive gastropathy. Schatzki' s ring. Hiatal hernia. Negative for Hooks's, negative for H. pylori. Social History Social History Type Response Smoking Status Never smoker Assessment and Plan Extracted from: Title: Ambulatory Patient Education Author: Albert Ramos MD Date: Family Medicine Arthralgia Your caregiver has diagnosed you as suffering from an arthralgia. Arthralgia means there is pain in a joint. This can come from many reasons including: Bruising the joint which causes soreness (inflammation) in the joint. Wear and tear on the joints which occur as we grow older (osteoarthritis). Overusing the joint. Various forms of arthritis. Infections of the joint. Regardless of the cause of pain in your joint, most of these different pains respond to anti-inflammatory drugs and rest. The exception to this is when a joint is infected, and these cases are treated with antibiotics, if it is a bacterial infection. HOME CARE INSTRUCTIONS Rest the injured area for as long as directed by your caregiver. Then slowly start using the joint as directed by your caregiver and as the pain allows. Crutches as directed may be useful if the an kles, knees or hips are involved. If the knee was splinted or casted, continue use and care as directed. If an stretchy or elastic wrapping bandage has been applied today, it should be removed and re-ap plied every 3 to 4 hours. It should not be applied tightly, but firmly enough to keep swelling down. Watch toes and feet for swelling, bluish discoloration, coldness, numbness or excessive pain. If any of these problems (symptoms) occur, remove the talisha bandage and re-apply more loosely. If these symptoms persist, contact your caregiver or return to this location. For the first 24 hours, keep the injured extremity elevated on pillows while lying down. Apply ice for 15-20 minutes to the sore joint every couple hours while awake for the first half day. Then 03-04 times per day for the first 48 hours. Put the ice in a plastic bag and place a towel between the bag of ice and your skin. Wear any splinting, casting, elastic bandage applications, or slings as instructed. Only take liat-qng-[id number] or prescription medicines for pain, discomfort , or fever as directed by your caregiver. Do not use aspirin immediately after the injury unless instructed by your physicia n. Aspirin can cause increased bleeding and bruising of the tissues. If you were given crutches, continue to use them as instructed and do not resume weight bearing on the sore joint until instructed. Persistent pain and inability to use the sore joint as directed for more than 2 to 3 days are warning signs indicating that you should see a caregiver for a follow-up visit as soon as possible. Initiall y, a hairline fracture (break in bone) may not be evident on X-rays. Persistent pain and swelling indicate that further evaluation, non-weight bearing or use of the joint (use of crutches or slings as i nstructed), or further X-rays are indicated. X-rays may sometimes not show a small fracture until a week or 10 days later. Make a follow-up appointment with your own caregiver or one to whom we have ref erred you. A radiologist (specialist in reading X-rays) may read your X-rays. Make sure you know how you are to obtain your X-ray results. Do not assume everything is normal if you do not hear from us. SEEK MEDICAL CARE IF: Bruising, swelling, or pain increases. SEEK IMMEDIATE MEDICAL CARE IF: Your fingers or toes are numb or blue. The pain is not responding to medications and continues to stay the same or get worse. The pain in your joint becomes severe. You develop a fever over 102 F (38.9 C). It becomes impossible to move or use the joint. MAKE SURE YOU: Understand these instructions. Will watch your condition. Will get help right away if you are not doing well or get worse. Document Released: 07/28/2006 Document Revised: 10/19/2012 Document Reviewed: 03/15/2009 [facility] Patient Information 2015 [employer] [facility]. This information is not intended to replace advice given to you by your health care provider. Make sure you discuss any questions you have with your health care provider. No follow up information was provided. Extracted from: Title: Office Visit Note Author: Albert Ramos MD Date: 04/07/15 Assessment/Plan Abnormal blood sugar This issue is stable and appropriate refills, lab, and f /u have been discussed. CKD (chronic kidney disease), stage II This issue is stable and appropriate refills, lab, and f/u have been discussed. Limit nsaids. Cough Considerchanging lisinopril to cozaar when willing. Depression This issue is stable and appropriate refills, lab, and f/u have been discussed. The patient has family members present who are agreeable with today's plan and have no additional concerns or requests. Dysphagia Consider prilosec. Wants to see Dr. DOZIER for evaluation and egd. HSMN (hereditary sensory-motor neuropathy), type I This issue is stable and appropriate refills, lab, and f/u have been discussed. Hypertension This issue is stable and appropriate refills, lab, and f/u have been discussed. The patient reports their blood pressure has been stable at home and is not having any significant or related problems. There has been no chest pain, chest pressure, soa/kay. Ordered: CBC w/ Differential Comprehensive Metabolic Panel TSH with Reflex Free T4 Urinalysis with Culture if Indicated XR Chest 2 Views Lower urinary tract symptoms (LUTS) UA pending. Please make the medication adjustments we discussed. Please notify the office for any difficulties or concerns. Macrobid 100mg po daily in place of bactrim.Has a pending consult with urologic specialist at [facility]. Consider pyridium or methylend blue for dysuria as a trial when interested. Extensive visit today. Neuromuscular disorder This issue is stable and appropriate refills, lab, and f/u have been discussed. Right knee pain Xray pending. Consider steroid injection when interested. Ordered: XR Knee 3 Views Right Thyroid cyst Thyroid sono pending and considerENT/Surg consult when available. I don't have access to the MRI they are discussing. Ordered: US Thyroid Orders: HYDROcodone-acetaminophen, 1-2 tabs, Oral, TID, as needed for pain, # 40 tabs, 0 Refill(s) nitrofurantoin, 100 mg 1 caps, Oral, Daily, X 30 days, # 30 caps, 0 Refill(s) , Pharmacy: [id number], 1 caps Oral Daily,x30 days Addendum by Albert Ramos MD on She had a mostly normal carotid doppler in April 07, 2015 14:37:38 CDT 04/2012 that showed a midly heterogenous thyroid is all I can find in any records.
--- OUTSIDE RECORDS SUMMARY | 2017-11-20 17:17 | External Medical Summary | Referral Summary ---
:1950 Author Organization [facility], [facility] Address [address] [place] [address] [place] [address] Care Team Providers Name Role Phone Albert Ramos Primary Care Physician Encounter VC Date(s): 08/22/15 - 08/22/15 [facility], [address] [place] [phone] [place] Discharge Diagnosis: Acute URI Discharge Disposition: 01-Home or Self Care Attending Physician: Arian Castillo PA-C Admitting Physician: Arian Castillo PA-C Vital Signs Most recent to oldest [Reference Range]: 1 Temperature Tympanic [36.6-38.1 degC] 36.8 degC (08/22/15 6:49 PM) Apical Heart Rate [60-100 bpm] 73 bpm (08/22/15 6:49 PM) Blood Pressure [90-140/60-90 mmHg] 126/78 mmHg (08/22/15 6:49 PM) SpO2 97 % (08/22/15 6:49 PM) Problem List Condition Effective Dates Status Health Status Informant Adult-onset obesity(Confirmed) Active Abnormal blood sugar(Confirmed) Active CKD (chronic kidney disease), stage Active II(Confirmed) Cough(Confirmed) Active Depression(Confirmed) Active Depression(Confirmed) Active History of IBS(Confirmed) Active Hereditary sensory [...] # 18 g, 0 Refill(s), Pharmacy : [facility] [id number] Start Date: 08/22/15 Status: Orderedamoxicillin 875 mg oral tablet 875 mg 1 tabs, Oral, BID, X 7 days, # 14 tabs, 0 Refill(s), Pharmacy: [facility] [id number], 1 tabs Oral BID,x7 days Start Date: 08/22/15 Stop Date: 08/29/15 Status: Orderedaspirin 325 mg, Oral, Daily, 0 Refill(s) Start Date: 02/08/14 Status: Orderedbaclofen See Instructions, 177 mg per 24 hours per pump, 0 Refill(s) Start Date: 07/13/14 Status: OrderedDaypro 600 mg oral tablet See Instructions, 1 TABS ORAL BID,X90 DAYS, # 180 tabs, eRx: [facility] [id number], 1 TABS ORALBID,X90 DAYS Start Date: 07/24/15 Status: Ordereddiazepam 5 mg oral tablet 1-4 tabs, Oral, Daily, Must last 30 days. [facility] May fill 07/23/15, # 60 tabs, 0 Refill(s) Start Date: 07/24/15 Status: OrderedNorco 5 mg-325 mg oral tablet 1-2 tabs, Oral, TID, as needed for pain, # 40 tabs, 0 Refill(s) Start Date: 04/07/15 Status: Orderedomeprazole Oral, Daily, 0 Refill(s) Start Date: 08/22/15 Status: OrderedpredniSONE 10 mg oral tablet See Instructions, 3 tabs Oral Daily for three days 2 tabs Oral Daily three days 1 tab Oral Daily for three days, # 18 tabs, 0 Refill(s), Pharmacy: [facility] [id number], 3 tabs Oral Daily for three days; 2 tabs Oral Daily three days; 1 tab Oral... Start Date: 08/22/15 Stop Date: 08/31/15 Status: OrderedZestril 10 mg oral tablet See Instructions, 1 TABS ORAL BEDTIME (ONCE A DAY),X90 DAYS, # 90 tabs, eRx: [facility] [id number], 1 TABS ORAL BEDTIME (ONCE A DAY),X90 DAYS Start Date: 07/24/15 Status: OrderedZoloft 50 mg oral tablet See Instructions, 1 TABS ORAL DAILY,X90 DAYS, # 90 tabs, eRx: [facility] [id number], 1 TABS ORAL DAILY,X90 DAYS Start Date: 07/03/15 Status: Ordered Results No data available for this section Immunizations Vaccine Date Refusal Reason tetanus/diphth/pertuss (Tdap) adult/adol 07/18/08 influenza virus vaccine, inactivated1 05/04/15 influenza virus vaccine, inactivated 05/16/14 influenza virus vaccine, live 05/12/13 influenza virus vaccine, live 05/25/12 pneumococcal 23-polyvalent vaccine 07/18/08 pneumococcal 23-polyvalent vaccine 05/04/03 1Location History: [facility] Procedures Procedure Date Related Diagnosis Body Site COLORECTAL CANCER SCREENING; COLONOSCOPY ON 05/03/15 INDIVIDUAL NOT MEETING CRITERIA FOR HIGH RISK1 Esophagogastroduodenoscopy and biopsy2 05/03/15 Cholecystectomy Surgery - baclofen pump replacement Surgery - left ring finger tendon repair 1Diverticulosis, repeat in 10 [id number] dilatation to 54 Swedish of the distal esophagus. Gastric ulcer, pathology indicating reactive gastropathy. Schatzki' s ring. Hiatal hernia. Negative for Hooks's, negative for H. pylori. Social History Social History Type Response Smoking Status Never smoker Assessment and Plan No data available for this section
--- OUTSIDE RECORDS SUMMARY | 2017-11-20 17:17 | External Medical Summary | Referral Summary ---
:1950 Author Organization [facility] [address] [place] [id number] Care Team Providers Name Role Phone Albert Ramos Primary Care Physician Encounter VC Date(s): 11/15/16 - 11/15/16 [facility] [address] [place] [phone] [place] Discharge Diagnosis: CKD (chronic kidney disease), stage II Discharge Diagnosis: Adult-onset obesity Discharge Diagnosis: Depression Discharge Diagnosis: Hereditary sensory motor neuropathy Discharge Diagnosis: GERD without esophagitis Discharge Diagnosis: Abnormal blood sugar Discharge Diagnosis: Hypertension Discharge Diagnosis: Wheelchair dependent Discharge Diagnosis: Neurogenic bladder Discharge Disposition: 01-Home or Self Care Attending Physician: Albert Ramos MD Admitting Physician: Albert Ramos MD Vital Signs Most recent to oldest [Reference Range]: 1 Blood Pressure [90-140/60-90 mmHg] 130/80 mmHg (11/15/16 1:07 PM) Problem List Condition Effective Dates Status Health Status Informant Adult-onset obesity(Confirmed) Active Abnormal blood sugar(Confirmed) Active CKD (chronic kidney disease), stage Active II(Confirmed) Cough(Confirmed) Active Depression(Confirmed) Active Depression(Confirmed) Active GERD without esophagitis(Confirmed) Active History of IBS(Confirmed) Active Hereditary sensory motor Active neuropathy(Confirmed) Hereditary spastic paraplegia Active (disorder)(Confirmed) Hyperlipidemia(Confirmed) 2008 Active Hypertension(Confirmed) 2008 Active Irritable bowel syndrome(Confirmed) Active Muscle spasticity(Confirmed) Active Neurogenic bladder(Confirmed) Active Neuromuscular disorder(Confirmed) Active Spasm (finding)(Confirmed) Active Spastic paraplegia, Active hereditary(Confirmed) Wheelchair dependent(Confirmed) Active Allergies, Adverse Reactions, Alerts Substance Reaction Severity Status ciprofloxacin Active Detrol1 Active levofloxacin Active 1extreme weakness Medications albuterol CFC free 90 mcg/inh inhalation aerosol 2 puffs, Inhalation, q4hr, as needed for wheezing, # 18 g, 0 Refill(s), Pharmacy : [id number] Start Date: 08/22/15 Status: Orderedaspirin 325 mg, Oral, Daily, 0 Refill(s) Start Date: 02/08/14 Status: Orderedbaclofen See Instructions, 177 mg per 24 hours per pump, 0 Refill(s) Start Date: 07/13/14 Status: OrderedBactrim DS 800 mg-160 mg oral tablet 1 tabs, Oral, BID, X 10 days, # 20 tabs, 0 Refill(s), Pharmacy: [id number] Start Date: 11/15/16 Stop Date: 11/25/16 Status: OrdereddiazePAM 5 mg oral tablet 1-4 tabs, Oral, Daily, RX must last 30 days. Rubi, # 60 tabs, 0 Refill(s) Start Date: 11/06/16 Status: OrderedEstrace Vaginal 0.1 mg/g vaginal cream Vaginal, 3x/Wk, 0 Refill(s) Start Date: 11/16/15 Status: Orderedlisinopril 10 mg oral tablet 10 mg 1 tabs, Oral, Bedtime (once a day), # 90 tabs, 1 Refill(s), Pharmacy: [facility] [id number], 1 tabs Oral Bedtime (once a day) Start Date: 11/15/16 Status: OrderedNorco 5 mg-325 mg oral tablet 1-2 tabs, Oral, TID, as needed for pain, # 40 tabs, 0 Refill(s) Start Date: 11/15/16 Status: Orderedomeprazole 40 mg oral delayed release capsule See Instructions, TAKE 1 CAPSULE BY MOUTH DAILY FURTHER REFILLS, # 30 caps, 3 Refill(s), eRx: [facility] [id number] Start Date: 10/09/16 Status: Orderedoxaprozin 600 mg oral tablet See Instructions, TAKE 1 TABLET BY MOUTH TWICE DAILY, # 180 tabs, eRx: [facility] [id number], TAKE 1 TABLET BY MOUTH TWICE DAILY Start Date: 06/24/16 Status: Orderedsertraline 100 mg oral tablet 100 mg 1 tabs, Oral, Daily, Note dose increase., # 90 tabs, 0 Refill(s), Pharmacy: [facility] [id number], 1 tabs Oral Daily,Instr:Note dose increase. Start Date: 11/15/16 Status: Orderedsulfamethoxazole-trimethoprim 800 mg-160 mg oral tablet See Instructions, TAKE 1 TABLET BY MOUTH EVERY DAY, # 60 tabs, eRx: [facility] [id number], TAKE1 TABLET BY MOUTH EVERY DAY Start Date: 10/25/16 Status: Orderedwheelchair wheelchair, See Instructions, PT/OT eval and treat, # 1 Each, 0 Refill(s), Attn : [place] with Mateusz; fax to [phone] Start Date: 06/05/16 Status: Ordered Results Hematology Most recent to oldest [Reference Range]: 1 WBC [4.8-10.8 10*3/uL] 5.0 10*3/uL (11/15/16 1:45 PM) RBC [4.00-5.20] 3.54 *LOW* (11/15/16 1:45 PM) Hgb [12.0-16.0 gm/dL] 11.9 gm/dL *LOW* (11/15/16 1:45 PM) Hct [37.0-47.0 %] 37.4 % (11/15/16 1:45 PM) MCV [82.0-99.0 fL] 105.6 fL *HI* (11/15/16 1:45 PM) MCH [27.0-32.0 pg] 33.6 pg *HI* (11/15/16 1:45 PM) MCHC [32.0-36.0 gm/dL] 31.8 gm/dL *LOW* (11/15/16 1:45 PM) RDW [11.5-14.5 %] 15.5 % *HI* (11/15/16 1:45 PM) Platelet [150-400 10*3/uL] 216 10*3/uL (11/15/16 1:45 PM) MPV [8.8-14.8 fL] 10.5 fL (11/15/16 1:45 PM) Immature Granulocytes [0.0-1.0 %] 0.4 % (11/15/16 1:45 PM) Neutrophils [51-75 %] 46 % *LOW* (11/15/16 1:45 PM) Lymphocytes [20-46 %] 42 % (11/15/16 1:45 PM) Monocytes [4-11 %] 9 % (11/15/16 1:45 PM) Eosinophils [0-4 %] 3 % (11/15/16 1:45 PM) Basophils [0-2 %] 0 % (11/15/16 1:45 PM) Neutro Absolute [1.90-7.00] 2.30 (11/15/16 1:45 PM) Lymph Absolute [0.80-3.30] 2.08 (11/15/16 1:45 PM) Hyde Absolute [0.30-1.00] 0.45 (11/15/16 1:45 PM) Eos Absolute [0.00-0.50] 0.14 (11/15/16 1:45 PM) Baso Absolute [0.00-0.20] 0.02 (11/15/16 1:45 PM) Chemistry Most recent to oldest [Reference Range]: 1 Sodium Lvl [135-144 mEq/L] 142 mEq/L (11/15/16 1:45 PM) Potassium Lvl [3.5-5.2 mEq/L] 4.2 mEq/L (11/15/16 1:45 PM) Chloride [99-111 mEq/L] 105 mEq/L (11/15/16 1:45 PM) CO2 [22-31 mEq/L] 28 mEq/L (11/15/16 1:45 PM) AGAP [3-20] 9 (11/15/16 1:45 PM) BUN [10-20 mg/dL] 18 mg/dL (11/15/16 1:45 PM) Glucose Lvl [70-99 mg/dL] 100 mg/dL *HI* (11/15/16 1:45 PM) Creatinine Lvl [0.57-1.11 mg/dL] 1.10 mg/dL (11/15/16 1:45 PM) eGFR [>60 mL/min] 49 mL/min 1 *ABN* (11/15/16 1:45 PM) Calcium Lvl [8.4-10.2 mg/dL] 8.9 mg/dL (11/15/16 1:45 PM) Albumin Lvl [3.4-4.8 gm/dL] 3.8 gm/dL (11/15/16 1:45 PM) Total Protein [6.0-7.6 gm/dL] 6.3 gm/dL (11/15/16 1:45 PM) Globulin [1.8-4.0 gm/dL] 2.5 gm/dL (11/15/16 1:45 PM) ALT [0-55 U/L] 9 U/L (11/15/16 1:45 PM) AST [5-34 U/L] 15 U/L (11/15/16 1:45 PM) Alk Phos [40-150 U/L] 61 U/L (11/15/16 1:45 PM) Bili Total [0.2-1.2 mg/dL] 0.4 mg/dL (11/15/16 1:45 PM) TSH with Reflex Free T4 [0.35-4.94] 0.65 (11/15/16 1:45 PM) 1Result Comment: Multiply eGFR results by 1.21 for race.Urinalysis Most recent to oldest [Reference Range]: 1 UA Color Yellow (11/15/16 12:05 PM) UA Appear Cloudy *ABN* (11/15/16 12:05 PM) UA pH [5.0-8.0] 6.0 (11/15/16 12:05 PM) UA Leuk Est [Negative] Pos 3+ *ABN* (11/15/16 12:05 PM) UA Nitrite [Negative] Negative (11/15/16 12:05 PM) UA Protein [Negative] Negative (11/15/16 12:05 PM) UA Glucose [Negative] Negative (11/15/16 12:05 PM) UA Ketones [Negative] Negative (11/15/16 12:05 PM) UA Urobilinogen [<1.0 mg/dL] 0.2 mg/dL (11/15/16 12:05 PM) UA Bili [Negative] Negative (11/15/16 12:05 PM) UA Blood [Negative] Negative (11/15/16 12:05 PM) UA Spec Grav [1.003-1.030] 1.012 (11/15/16 12:05 PM) Type Catheter (11/15/16 12:05 PM) UA WBC [0-4 /HPF] >50 /HPF *ABN* (11/15/16 12:05 PM) UA RBC [0-4] 0-4 (11/15/16 12:05 PM) Epithelial Cells 10-20 (11/15/16 12:05 PM) UA Bacteria Numerous *ABN* (11/15/16 12:05 PM) UA Mucous Present (11/15/16 12:05 PM) Immunizations Given and Recorded Vaccine Date Status Refusal Reason tetanus/diphth/pertuss (Tdap) adult/adol 07/18/08 Recorded influenza virus vaccine, inactivated 04/11/16 Recorded influenza virus vaccine, inactivated1 05/04/15 Recorded influenza virus vaccine, inactivated 05/16/14 Recorded influenza virus vaccine, live 05/12/13 Given influenza virus vaccine, live 05/25/12 Given pneumococcal 23-polyvalent vaccine 07/18/08 Recorded pneumococcal 23-polyvalent vaccine 05/04/03 Recorded 1Location History: [facility] Procedures Procedure Date Related Diagnosis Body Site COLORECTAL CANCER SCREENING; COLONOSCOPY ON 05/03/15 INDIVIDUAL NOT MEETING CRITERIA FOR HIGH RISK1 Esophagogastroduodenoscopy and biopsy2 05/03/15 Cholecystectomy Surgery - baclofen pump replacement Surgery - left ring finger tendon repair 1Diverticulosis, repeat in 10 [id number] dilatation to 54 Pashto of the distal esophagus. Gastric ulcer, pathology indicating reactive gastropathy. Schatzki' s ring. Hiatal hernia. Negative for Hooks's, negative for H. pylori. Social History Social History Type Response Smoking Status Never smoker Assessment and Plan Extracted from: Title: Ambulatory Patient Education Author: Albert Ramos MD Date: Procedures Clean Intermittent Catheterization, Female Clean intermittent catheterization (CIC) is a procedure to remove urine from the bladder by placing a small, flexible tube (catheter) into the bladder though the urethra. The urethra is a tube in the joce dy that carries urine from the bladder out of the body. CIC may be done when: You cannot completely empty your bladder on your own. This may be due to a blockage in the bladder or urethra. Your bladder leaks urine. This may happen when the muscles or nerves near the bladder are not working normally, so the bladder overflows. Your health care provider will show you how to perform CIC and will help you to feel comfortable performing this procedure at home. Your health care provider will also help you to get the home care supplies that are needed for this procedure. WHAT SUPPLIES WILL I NEED? Germ-free (sterile), water-based lubricant. A container for urine collection. You may also use the toilet to dispose of urine from the catheter. A catheter. Your health care provider will determine the best size for you. Sterile gloves. Sterile gauze. Medicated sterile swabs. HOW DO I PERFORM THE PROCEDURE? Most people need CIC at least 4 times per dayto adequately empty the bladder. Your health care provider will tell you how often you should perform CIC. To perform CIC, follow these steps: 1. Wash your hands with soap and water. If soap and water are not available, use hand shoe designer. 2. Prepare the supplies that you will use during the procedure. Open the catheter pack, the lubricant, and the pack of medicated sterile swabs. If you have been told to keep the procedure sterile, do no t touch your supplies until you are wearing gloves. 3. Get in a comfortable position. It may be helpful to use a handheld mirror to look at the opening of your urethra. Possible positions include: Sitting on a toilet, a chair, or the edge of a bed. Standing next to a toilet with one foot on the toilet rim. Lying down with your head raised on pillows and your knees pointing to the ceiling. 4. If you are using a urine collection container, position it between your legs. 5. Urinate, if you are able. 6. Put on gloves. 7. Apply lubricant to about 2 inches (5 cm) of the tip of the catheter. 8. Set the catheter down on a clean, dry surface within reach. 9. Gently spread the folds of skin around your vagina (labia) with your non- dominant hand. For example, if you are right-handed, use your left hand to do this. With your other hand, clean the area aroun d your urethra with medicated sterile swabs as told by your health care provider. 10. While keeping your labia spread apart, slowly insert the lubricated catheter 23 inches (58 cm) straight into your urethra until urine flows freely. Allow urine to drain into the toilet or the urine collection container. 11. When urine starts to flow freely, insert the catheter 1 inch (3 cm) more. 12. When urine stops flowing, slowly remove the catheter. 13. Note the color, amount, and odor of the urine. 14. Clean your labia using soap and water. 15. Wash your hands with soap and water. 16. Follow package instructions about how to clean the catheter after each use. WHAT SHOULD I DO AT HOME? How Often Should I Perform CIC? Do CIC to empty your bladder every 46 hours or as often as told by your health care provider. If you have symptoms of too much urine in your bladder (overdistension) and you are not able to urinate, perform CIC. Symptoms of overdistension may include: Restlessness. Sweating or chills. Headache. Flushedor pale skin. Cold limbs. Bloated lower abdomen. What Are Some Steps That I Can Take to Avoid Problems? Drink enough fluid to keep your urine clear or pale yellow. Avoid caffeine. Caffeine may make you urinate more frequently and more urgently. Dispose of a multiple-use catheter when it becomes dry, brittle, or cloudy. This usually happens after you use the catheter for 1 week. Take [id number] and prescription medicines only as told by your health care provider. Keep all follow-up visits as told by your health care provider. This is important. SEEK MEDICAL CARE IF: You have difficulty performing CIC. You have urine leaking during CIC. You have: Dark or cloudy urine. Blood in your urine or in your catheter. A change in the smell of your urine or discharge. A burning feeling while you urinate. You feel nauseous or you vomit. You have pain in your abdomen, your back, or your sides below your ribs. You have swelling or redness around the opening of your urethra. You develop a rash or sores on your skin. SEEK IMMEDIATE MEDICAL CARE IF: You have a fever. You have symptoms that do not go away after 3 days. You have symptoms that suddenly get worse. You have severe pain. The amount of urine that drains from your bladder decreases. This information is not intended to replace advice given to you by your health care provider. Make sure you discuss any questions you have with your health care provider. Document Released: 08/30/2011 Document Revised: 07/08/2016 Document Reviewed: 02/09/2016 [employer] Patient Education 2016 [employer] No follow up information was provided. Extracted from: Title: Office Visit Note Author: Albert Ramos MD Date: 11/15/16 Assessment/Plan Abnormal blood sugar This issue was reviewed, appears stable, and current therapy continued except as mentioned. Appropriate lab was reviewed from the most recent appropriate entry and lab was ordered if needed in the [facility]nursing orders, and follow up recommended generally in 90 days and no later then six months. Lab pending. Adult-onset obesity Diet and exercise as tolerated and feasible. Consider medication when interested. CKD (chronic kidney disease), stage II This issue was reviewed, appears stable, and current therapy continued except as mentioned. Appropriate lab was reviewed from the most recent appropriate entry and lab was ordered if needed in the [facility]/nursing orders, and follow up recommended generally in 90 days and no later then six months. Limit nsaids. Depression Please make the medication adjustments we discussed. Please notify the office for any difficulties or concerns. Zoloft to 100mg po daily. Dysuria UA pending. Bactrim DSpo bid for ten days asneeded. The patient has family members present who are agreeable with today's plan and have no additional concerns or requests. Don here. Ordered: Urinalysis with Culture if Indicated GERD without esophagitis This issue was reviewed, appears stable, and current therapy continued except as mentioned. Appropriate lab was reviewed from the most recent appropriate entry and lab was ordered if needed in the [facility]/nursing orders, and follow up recommended generally in 90 days and no later then six months. 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 Appropriate lab was reviewed from the most recent appropriate entry and lab was ordered if needed in the [facility]nursing orders, and follow up recommended generally in 90 days and no later then six [address]. [address] Tejada with Dr. Szymanski. Has a baclofen pump. [place] refilled. Hypertension This issue was reviewed, appears stable, and current therapy continued except as mentioned. Appropriate lab was reviewed from the most recent appropriate entry and lab was ordered if needed in the [facility]/nursing orders, and follow up recommended generally in 90 days and no later then six months. Refill meds. The patient reports their blood pressure has been stable at home and is not having any significant or related problems. There has been no chest pain, chest pressure, soa/kay. The patient had an elevated blood pressure reading and is to monitor their bp and call with a report if consistently > 140/90. Ordered: CBC w/ Differential Comprehensive Metabolic Panel TSH with Reflex Free T4 Urinary tract infection symptoms See above. [facility] Wheelchair dependent This issue was reviewed, appears stable, and current therapy continued except as mentioned. Appropriate lab was reviewed from the most recent appropriate entry and lab was ordered if needed in the [facility]/nursing orders, and follow up recommended generally in 90 days and no later then six months. Addendum by Albert Ramos MD on November 15, 2016 15:18:33 CDT She planned to stop the flomax due to the dizziness and monitor her bp regularly. With the flomax she was running 90/60.
--- OUTSIDE RECORDS SUMMARY | 2017-11-20 17:17 | External Medical Summary | Referral Summary ---
:1950 Author Organization [facility] Address [address] [place] [address] [place] [phone] Care Team Providers Name Role Phone Albert Ramos Primary Care Physician Encounter VC Date(s): 09/06/15 - 09/06/15 [facility] [place] [phone] [place] Discharge Disposition: 01-Home or Self Care Attending Physician: Albert Ramos MD Admitting Physician: Albert Ramos MD Vital Signs Most recent to oldest [Reference Range]: 1 Blood Pressure [90-140/60-90 mmHg] 110/60 mmHg (09/06/15 1:14 PM) Problem List Condition Effective Dates Status [...] # 18 g, 0 Refill(s), Pharmacy : [facility] [id number] Start Date: 08/22/15 Status: Orderedaspirin 325 mg, Oral, Daily, 0 Refill(s) Start Date: 02/08/14 Status: Orderedbaclofen See Instructions, 177 mg per 24 hours per pump, 0 Refill(s) Start Date: 07/13/14 Status: OrderedDaypro 600 mg oral tablet See Instructions, 1 TABS ORAL BID,X90 DAYS, # 180 tabs, eRx: [facility] [id number], 1 TABS ORALBID,X90 DAYS Start Date: 07/24/15 Status: Ordereddiazepam 5 mg oral tablet 1-4 tabs, Oral, Daily, Must last 30 days. [facility] Due to be filled., # 60 tabs, 0 Refill(s) Start Date: 08/25/15 Status: OrderedNorco 5 mg-325 mg oral tablet 1-2 tabs, Oral, TID, as needed for pain, # 40 tabs, 0 Refill(s) Start Date: 04/07/15 Status: Orderedomeprazole Oral, Daily, 0 Refill(s) Start Date: 08/22/15 Status: OrderedZestril 10 mg oral tablet See Instructions, 1 TABS ORAL BEDTIME (ONCE A DAY),X90 DAYS, # 90 tabs, eRx: [facility] 47225, 1 TABS ORAL BEDTIME (ONCE A DAY),X90 DAYS Start Date: 07/24/15 Status: OrderedZoloft 50 mg oral tablet See Instructions, 1 TABS ORAL DAILY,X90 DAYS, # 90 tabs, eRx: [facility] 59702, 1 TABS ORAL DAILY,X90 DAYS Start Date: [...] finger tendon repair 1Diverticulosis, repeat in 10 [id number] dilatation to 54 Italian of the distal esophagus. Gastric ulcer, pathology indicating reactive gastropathy. Schatzki' s ring. Hiatal hernia. Negative for Hooks's, negative for H. pylori. Social History Social History Type Response Smoking Status Never smoker Assessment and Plan Extracted from: Title: Ambulatory Patient Education Author: Albert Ramos MD Date: Family Medicine DASH Eating Plan DASH stands for "Dietary Approaches to Stop Hypertension." The DASH eating plan is a healthy eating plan that has been shown to reduce high blood pressure (hypertension). Additional health benefits may include reducing the risk of type 2 diabetes mellitus, heart disease, and stroke. The DASH eating plan may also help with weight loss. WHAT DO I NEED TO KNOW ABOUT THE DASH EATING PLAN? For the DASH eating plan, you will follow these general guidelines: Choose foods with a percent daily value for sodium of less than 5% (as listed on the food label). Use salt-free seasonings or herbs instead of table salt or sea salt. Check with your health care provider or pharmacist before using salt substitutes. Eat lower-sodium products, often labeled as "lower sodium" or "no salt added." Eat fresh foods. Eat more vegetables, fruits, and low-fat dairy products. Choose whole grains. Look for the word "whole" as the first word in the ingredient list. Choose fish and skinless chicken or turkey more often than red meat. Limit fish, poultry, and meat to 6 oz (170 g) each day. Limit sweets, desserts, sugars, and sugary drinks. Choose heart-healthy fats. Limit cheese to 1 oz (28 g) per day. Eat more home-cooked food and less restaurant, buffet, and fast food. Limit fried foods. Cook foods using methods other than frying. Limit canned vegetables. If you do use them, rinse them well to decrease the sodium. When eating at a restaurant, ask that your food be prepared with less salt , or no salt if possible. WHAT FOODS CAN I EAT? Seek help from a dietitian for individual calorie needs. Grains Whole grain or whole wheat bread. Brown rice. Whole grain or whole wheat pasta. Quinoa, bulgur, and whole grain cereals. Low-sodium cereals. Chenoa or whole wheat flour tortillas. Whole grain cornbread. Whole grain crackers. Low- sodium crackers. Vegetables Fresh or frozen vegetables (raw, steamed, roasted, or grilled). Low-sodium or reduced-sodium tomato and vegetable juices. Low-sodium or reduced-sodium tomato sauce and paste. Low-sodium or reduced-sodium canned vegetables. Fruits All fresh, canned (in natural juice), or frozen fruits. Meat and Other Protein Products Ground beef (85% or leaner), grass-fed beef, or beef trimmed of fat. Skinless chicken or turkey. Ground chicken or turkey. Pork trimmed of fat. All fish and seafood. Eggs. Dried beans, peas, or lentils. Unsalted nuts and seeds. Unsalted canned beans. Dairy Low-fat dairy products, such as skim or 1% milk, 2% or reduced-fat cheeses, low -fat ricotta or cottage cheese, or plain low-fat yogurt. Low-sodium or reduced- sodium cheeses. Fats and Oils Tub margarines without trans fats. Light or reduced-fat mayonnaise and salad dressings (reduced sodium). Avocado. Safflower, olive, or canola oils. Natural peanut or almond butter. Other Unsalted popcorn and pretzels. The items listed above may not be a complete list of recommended foods or beverages. Contact your dietitian for more options. WHAT FOODS ARE NOT RECOMMENDED? Grains White bread. White pasta. White rice. Refined cornbread. Bagels and croissants. Crackers that contain trans fat. Vegetables Creamed or fried vegetables. Vegetables in a cheese sauce. Regular canned vegetables. Regular canned tomato sauce and paste. Regular tomato and vegetable juices. Fruits Dried fruits. Canned fruit in light or heavy syrup. Fruit juice. Meat and Other Protein Products Fatty cuts of meat. Ribs, chicken wings, kapadia, sausage, bologna, salami, chitterlings, fatback, hot dogs, bratwurst, and packaged luncheon meats. Salted nuts and seeds. Canned beans with salt. Dairy Whole or 2% milk, cream, qqmr-gep-anqw, and cream cheese. Whole-fat or sweetened yogurt. Full-fat cheeses or blue cheese. Nondairy creamers and whipped toppings. Processed cheese, cheese spreads, or cheese curds. Condiments Onion and garlic salt, seasoned salt, table salt, and sea salt. Canned and packaged gravies. Worcestershire sauce. Tartar sauce. Barbecue sauce. Teriyaki sauce. Soy sauce, including reduced sodium. Stea k sauce. Fish sauce. Oyster sauce. Cocktail sauce. Horseradish. Ketchup and mustard. Meat flavorings and tenderizers. Bouillon cubes. Hot sauce. Tabasco sauce. Marinades. Taco seasonings. Relishes. Fats and Oils Butter, stick margarine, lard, shortening, ghee, and kapadia fat. Coconut, palm kernel, or palm oils. Regular salad dressings. Other Pickles and olives. Salted popcorn and pretzels. The items listed above may not be a complete list of foods and beverages to avoid. Contact your dietitian for more information. WHERE CAN I FIND MORE INFORMATION? National Heart, Lung, and Blood [place]: www.nhlbi.nih.gov/health/health- topics/topics/dash/ Document Released: 07/16/2012 Document Revised: 12/12/2014 Document Reviewed: 06/01/2014 ExitCare Patient Information 2015 [employer]. This information is not intended to replace advice given to you by your health care provider. Make sure you discuss any questions you have with your health care provider. No follow up information was provided. Extracted from: Title: Office Visit Note Author: Albert Ramos MD Date: 09/06/15
--- OUTSIDE RECORDS SUMMARY | 2017-11-20 17:17 | External Medical Summary | Referral Summary ---
:1950 Author [facility] Address [address] [place] [address] [place] [phone] Care Team Providers Name Role Phone Albert Ramos Primary Care Physician Encounter VC Date(s): 09/15/15 - 09/15/15 [facility] [place] [phone] [place] Discharge Disposition: 01-Home or Self Care Attending Physician: Albert Ramos MD Admitting Physician: Albert Ramos MD Vital Signs Most recent to oldest [Reference Range]: 1 Blood Pressure [90-140/60-90 mmHg] 130/70 mmHg (09/15/15 10:55 AM) Problem List Condition Effective Dates Status Health [...] # 18 g, 0 Refill(s), Pharmacy : [facility] [address] Start Date: 08/22/15 Status: Orderedaspirin 325 mg, Oral, Daily, 0 Refill(s) Start Date: 02/08/14 Status: Orderedbaclofen See Instructions, 177 mg per 24 hours per pump, 0 Refill(s) Start Date: 07/13/14 Status: OrderedDaypro 600 mg oral tablet See Instructions, 1 TABS ORAL BID,X90 DAYS, # 180 tabs, eRx: [facility], 1 TABS ORALBID,X90 DAYS Start Date: 07/24/15 [...] A DAY),X90 DAYS, # 90 tabs, eRx: [facility] 10200, 1 TABS ORAL BEDTIME (ONCE A DAY),X90 DAYS Start Date: 07/24/15 Status: OrderedZoloft 50 mg oral tablet See Instructions, 1 TABS ORAL DAILY,X90 DAYS, # 90 tabs, eRx: [facility] 19134, 1 TABS ORAL DAILY,X90 DAYS Start Date: [...] finger tendon repair 1Diverticulosis, repeat in 10 [id number] dilatation to 54 Egyptian of the distal esophagus. Gastric ulcer, pathology indicating reactive gastropathy. Schatzki' s ring. Hiatal hernia. Negative for Hooks's, negative for H. pylori. Social History Social History Type Response Smoking Status Never smoker Assessment and Plan Extracted from: Title: Ambulatory Patient Education Author: Albert Ramos MD Date: Home Health Care Chronic Kidney Disease Chronic kidney disease occurs when the kidneys are damaged over a long period. The kidneys are two organs that lie on either side of the spine between the middle of the back and the front of the abdomen. The kidneys: Remove wastes and extra water from the blood. Produce important hormones. These help keep bones strong, regulate blood pressure, and help create red blood cells. Balance the fluids and chemicals in the blood and tissues. A small amount of kidney damage may not cause problems, but a large amount of damage may make it difficult or impossible for the kidneys to work the way they should. If steps are not taken to slow down the kidney damage or stop it from getting worse, the kidneys may stop working permanently. Most of the time, chronic kidney disease does not go away. However , it can often be controlled, and those with the disease can usually live normal lives. CAUSES The most common causes of chronic kidney disease are diabetes and high blood pressure (hypertension). Chronic kidney disease may also be caused by: Diseases that cause the kidneys' filters to become inflamed. Diseases that affect the immune system. Genetic diseases. Medicines that damage the kidneys, such as anti-inflammatory medicines. Poisoning or exposure to toxic substances. A reoccurring kidney or urinary infection. A problem with urine flow. This may be caused by: Cancer. Kidney stones. An enlarged prostate in males. SIGNS AND SYMPTOMS Because the kidney damage in chronic kidney disease occurs slowly, symptoms develop slowly and may not be obvious until the kidney damage becomes severe. A person may have a kidney disease for years wit hout showing any symptoms. Symptoms can include: Swelling (edema) of the legs, ankles, or feet. Tiredness (lethargy). Nausea or vomiting. Confusion. Problems with urination, such as: Decreased urine production. Frequent urination, especially at night. Frequent accidents in children who are potty trained. Muscle twitches and cramps. Shortness of breath. Weakness. Persistent itchiness. Loss of appetite. Metallic taste in the mouth. Trouble sleeping. Slowed development in children. Short stature in children. DIAGNOSIS Chronic kidney disease may be detected and diagnosed by tests, including blood , urine, imaging, or kidney biopsy tests. TREATMENT Most chronic kidney diseases cannot be cured. Treatment usually involves relieving symptoms and preventing or slowing the progression of the disease. Treatment may include: A special diet. You may need to avoid alcohol and foods thatare salty and high in potassium. Medicines. These may: Lower blood pressure. Relieve anemia. Relieve swelling. Protect the bones. HOME CARE INSTRUCTIONS Follow your prescribed diet. Take medicines only as directed by your health care provider. Do not take any new medicines (prescription, elxk-lpt-baznlcq, or nutritional supplements) unless approved by your health care provider . Many medicines can worsen your kidney damage or need to have the dose adjusted. Quit smoking if you smoke. Talk to your health care provider about a smoking cessation program. Keep all follow-up visits as directed by your health care provider. SEEK IMMEDIATE MEDICAL CARE IF: Your symptoms get worse or you develop new symptoms. You develop symptoms of end-stage kidney disease. These include: Headaches. Abnormally dark or light skin. Numbness in the hands or feet. Easy bruising. Frequent hiccups. Menstruation stops. You have a fever. You have decreased urine production. You havepain or bleeding when urinating. MAKE SURE YOU: Understand these instructions. Will watch your condition. Will get help right away if you are not doing well or get worse. FOR MORE INFORMATION [employer] Patients: www.aakp.org National Kidney Foundation: www.kidney.org [employer]: www.akfinc.org Life Options Rehabilitation [facility]: www.lifeoptions.org and www.kidneyschool.org Document Released: 05/06/2009 Document Revised: 12/12/2014 Document Reviewed: 03/26/2013 ExitCare Patient Information 2015 [employer]. This information is not intended to replace advice given to you by your health care provider. Make sure you discuss any questions you have with your health care provider. No follow up information was provided. Extracted from: Title: Office Visit Note Author: Albert Ramos MD Date: 09/15/15 Assessment/Plan Abnormal blood sugar This issue was reviewed, appears stable, and current therapy continued except as mentioned. Appropriate lab was reviewed from the most recent appropriate entry and lab was order ed if needed in the cpoe/nursing orders, and follow up recommended generally in 90 days and no later then six months. Lab stable. Adult-onset obesity Diet and exercise as tolerated [...] days and no later then six months. No nsaids. Depression This issue was reviewed, appears stable, and current therapy continued except as mentioned. Appropriate lab was reviewed from the most recent appropriate entry and lab was ordered if need ed in the cpoe/nursing orders, and follow up recommended generally in 90 days and no later then six months. Mood stable. The patient is here for a routine home health recertification. Their chron ic issues are stable and no changes are necessary at this time. Home health papers completed. GERD without esophagitis This issue was reviewed, appears stable, and current therapy continued except as mentioned. Appropriate lab was reviewed from the most recent appropriate entry and lab was o rdered if needed in the cpoe/nursing orders, and follow up recommended generally in 90 days and no later then six months. Hypertension This issue was reviewed, appears stable, and current therapy continued except as mentioned. Appropriate lab was reviewed from the most recent appropriate entry and lab was ordered if ne eded in the cpoe/nursing orders, and follow up recommended generally in 90 days and no later then six months. The patient reports their blood pressure has been stable at home and is not having any significant or related problems. There has been no chest pain, chest pressure, soa/kay. Neuromuscular disorder Stable.Needing PT/OT/doing ok. Spastic paraplegia, hereditary See above.
--- OUTSIDE RECORDS SUMMARY | 2017-11-20 17:17 | External Medical Summary | Referral Summary ---
:1950 Author Organization [facility] [place] [address] Care Team Providers Name Role Phone Albert Ramos Primary Care Physician Encounter VC Date(s): 02/18/17 - 02/18/17 [facility] [place] [phone] [place] Discharge Diagnosis: Frequent UTI Discharge Diagnosis: Encounter for removal of sutures Discharge Diagnosis: Neurogenic bladder Discharge Disposition: 01-Home or Self Care Attending Physician: Hillary Keys PA-C Admitting Physician: Hillary Keys PA-C Vital Signs Most recent to oldest [Reference Range]: 1 Temperature Tympanic [36.6-38.1 degC] 36.3 degC *LOW* (02/18/17 10:20 AM) Peripheral Pulse Rate [60-100 bpm] 66 bpm (02/18/17 10:20 AM) Blood Pressure [90-140/60-90 mmHg] 122/74 mmHg (02/18/17 10:20 AM) SpO2 96 % (02/18/17 10:20 AM) Problem List Condition Effective Dates Status Health Status Informant Adult-onset obesity(Confirmed) Active Abnormal blood sugar(Confirmed) Active CKD (chronic kidney disease), stage Active II(Confirmed) Cough(Confirmed) Active Depression(Confirmed) Active Depression(Confirmed) Active GERD without esophagitis(Confirmed) Active History of IBS(Confirmed) Active Hereditary sensory motor Active neuropathy(Confirmed) Hereditary spastic paraplegia Active (disorder)(Confirmed) Hyperlipidemia(Confirmed) 2009 Active Hypertension(Confirmed) 2008 Active Irritable bowel syndrome(Confirmed) Active Muscle spasticity(Confirmed) Active Neurogenic bladder(Confirmed) Active Neuromuscular disorder(Confirmed) Active Spasm (finding)(Confirmed) Active Spastic paraplegia, Active hereditary(Confirmed) Wheelchair dependent(Confirmed) Active Allergies, Adverse Reactions, Alerts Substance Reaction Severity Status ciprofloxacin Active Detrol1 Active levofloxacin Active 1extreme weakness Medications baclofen See Instructions, 177 mg per 24 hours per pump, 0 Refill(s) Start Date: 07/13/14 Status: OrdereddiazePAM 5 mg oral tablet 1-4 tabs, Oral, Daily, RX must last 30 days. May refill 02/06/17 [facility], # 60 tabs, 0 Refill(s) Start Date: 02/03/17 Status: OrderedEstrace Vaginal 0.1 mg/g vaginal cream Vaginal, 3x/Wk, 0 Refill(s) Start Date: 11/16/15 Status: OrderedKeflex 500 mg oral capsule 500 mg 1 caps, Oral, QID, X 10 days, # 40 caps, 0 Refill(s), Pharmacy: [email or web address], 1caps Oral QID,x10 days Start Date: 02/18/17 Stop Date: 02/28/17 Status: Orderedlisinopril 10 mg oral tablet 10 mg 1 tabs, Oral, Bedtime (once a day), # 90 tabs, 1 Refill(s), Pharmacy: [email or web address] 15307, 1 tabs Oral Bedtime (once a day) Start Date: 11/15/16 Status: OrderedNorco 5 mg-325 mg oral tablet 1-2 tabs, Oral, TID, as needed for pain, # 40 tabs, 0 Refill(s) Start Date: 11/15/16 Status: Orderedomeprazole 40 mg oral delayed release capsule See Instructions, TAKE 1 CAPSULE BY MOUTH DAILY FURTHER REFILLS, # 30 caps, 3 Refill(s), eRx: [email or web address] [address]91 Start Date: 10/09/16 Status: Orderedoxaprozin 600 mg oral tablet See Instructions, TAKE 1 TABLET BY MOUTH TWICE DAILY, # 180 tabs, eRx: [email or web address] [address]248 Start Date: 12/17/16 Status: Orderedsertraline 50 mg oral tablet 100 mg 2 tabs, Oral, Daily, # 90 tabs, 1 Refill(s), eRx: [email or web address] 48200 Start Date: 12/30/16 Status: Orderedsulfamethoxazole-trimethoprim 800 mg-160 mg oral tablet See Instructions, TAKE 1 TABLET BY MOUTH EVERY DAY, # 60 tabs, eRx: [facility] 57131, TAKE1 TABLET BY MOUTH EVERY DAY Start Date: 10/25/16 Status: Ordered Results Urinalysis Most recent to oldest [Reference Range]: 1 UA Color Yellow (02/18/17 11:24 AM) UA Appear Cloudy *ABN* (02/18/17 11:24 AM) UA pH [5.0-8.0] 5.0 (02/18/17 11:24 AM) UA Leuk Est [Negative] Pos 3+ *ABN* (02/18/17 11:24 AM) UA Nitrite [Negative] Negative (02/18/17 11:24 AM) UA Protein [Negative] Trace *ABN* (02/18/17 11:24 AM) UA Glucose [Negative] Negative (02/18/17 11:24 AM) UA Ketones [Negative] Negative (02/18/17 11:24 AM) UA Urobilinogen [<=1.0 mg/dL] 0.2 mg/dL (02/18/17 11:24 AM) UA Bili [Negative] Negative (02/18/17 11:24 AM) UA Blood [Negative] Pos 3+ *ABN* (02/18/17 11:24 AM) UA Spec Grav [1.003-1.030] 1.010 (02/18/17 11:24 AM) Type Catheter (02/18/17 11:24 AM) UA WBC [0-4 /HPF] >50 /HPF *ABN* (02/18/17 11:24 AM) UA RBC [0-2 /HPF] >50 /HPF *ABN* (02/18/17 11:24 AM) Epithelial Cells 2-5 (02/18/17 11:24 AM) UA Bacteria Numerous *ABN* (02/18/17 11:24 AM) Immunizations Given and Recorded Vaccine Date Status Refusal Reason tetanus/diphth/pertuss (Tdap) adult/adol 07/18/08 Recorded influenza virus vaccine, inactivated 04/11/16 Recorded influenza virus vaccine, inactivated1 05/04/15 Recorded influenza virus vaccine, inactivated 05/16/14 Recorded influenza virus vaccine, live 05/12/13 Given influenza virus vaccine, live 05/25/12 Given pneumococcal 23-polyvalent vaccine 07/18/08 Recorded pneumococcal 23-polyvalent vaccine 05/04/03 Recorded 1Location History: [facility] Procedures Procedure Date Related Diagnosis Body Site COLORECTAL CANCER SCREENING; COLONOSCOPY ON 05/03/15 INDIVIDUAL NOT MEETING CRITERIA FOR HIGH RISK1 Esophagogastroduodenoscopy and biopsy2 05/03/15 Cholecystectomy Surgery - baclofen pump replacement Surgery - left ring finger tendon repair 1Diverticulosis, repeat in 10 [id number] dilatation to 54 Irish of the distal esophagus. Gastric ulcer, pathology indicating reactive gastropathy. Schatzki' s ring. Hiatal hernia. Negative for Hooks's, negative for H. pylori. Social History Social History Type Response Smoking Status Never smoker Assessment and Plan Extracted from: Title: Office Visit Note- Suture Author: Hillary Keys PA-C Date: 02/18 removal, Frequent UTI Assessment/Plan Encounter for removal of sutures Sutures were easily removed. RTC with any concerns. Ordered: Office Visit Level 3 Est 80636 Frequent UTI Was not able to give specimen in clinic today. Also has been on Bactrim. Will go ahead and send her home with a specimen containerand collect UA at home to bring in. Will stop herBactrim and star t her on Keflex for now.Needs to discuss with Urology if not improving or if sensitivitiesshow only susceptibility to IVabx. Ordered: cephalexin, 500 mg 1 caps, Oral, QID, X 10 days, # 40 caps, 0 Refill(s), [facility], 1 caps Oral QID,x10 days Office Visit Level 3 Est 32448 Neurogenic bladder Follows with Urology and Neuro. Ordered: Office Visit Level 3 Est 57934
--- OUTSIDE RECORDS SUMMARY | 2017-11-20 17:17 | External Medical Summary | Referral Summary ---
:1950 Author Organization [facility] Address [address] [place] [address] [place] [phone] Care Team Providers Name Role Phone Albert Ramos Primary Care Physician Encounter VC Date(s): 12/13/15 - 12/13/15 [facility] [place] [phone] [place] Discharge Disposition: 01-Home or Self Care Attending Physician: Albert Ramos MD Admitting Physician: Albert Ramos MD Vital Signs Most recent to oldest [Reference Range]: 1 Blood Pressure [90-140/60-90 mmHg] 120/80 mmHg (12/13/15 4:28 PM) Problem List Condition Effective Dates Status [...] # 18 g, 0 Refill(s), Pharmacy : [facility] [id number] Start Date: 08/22/15 Status: Orderedaspirin 325 mg, Oral, Daily, 0 Refill(s) Start Date: 02/08/14 Status: Orderedbaclofen See Instructions, 177 mg per 24 hours per pump, 0 Refill(s) Start Date: 07/13/14 Status: OrderedDaypro 600 mg oral tablet See Instructions, 1 TABS ORAL BID,X90 DAYS, # 180 tabs, eRx: [facility] [id number], 1 TABS ORALBID,X90 DAYS Start Date: 07/24/15 Status: Ordereddiazepam 5 mg oral tablet 1-4 tabs, Oral, Daily, Must last 30 days. [facility] Due to be filled., # 60 tabs, 0 Refill(s) Start Date: 12/05/15 Status: OrderedEstrace Vaginal 0.1 mg/g vaginal cream Vaginal, 3x/Wk, 0 Refill(s) Start Date: 11/16/15 Status: OrderedKeflex 500 mg oral capsule 500 mg 1 caps, Oral, QID, X 10 days, # 40 caps, 0 Refill(s), Pharmacy: [facility] [id number], 1caps Oral QID,x10 days Start Date: 12/13/15 Stop Date: 12/23/15 Status: OrderedNorco 5 mg-325 mg oral tablet 1-2 tabs, Oral, TID, as needed for pain, # 40 tabs, 0 Refill(s) Start Date: 11/16/15 Status: OrderedZestril 10 mg oral tablet See Instructions, 1 TABS ORAL BEDTIME (ONCE A DAY),X90 DAYS, # 90 tabs, eRx: [facility] [id number], 1 TABS ORAL BEDTIME (ONCE A DAY),X90 DAYS Start Date: 10/23/15 Status: OrderedZoloft 50 mg oral tablet See Instructions, 1 TABS ORAL DAILY,X90 DAYS, # 90 tabs, 1 Refill(s), eRx: [facility] [id number], 1 TABS ORAL DAILY,X90 DAYS Start Date: [...] finger tendon repair 1Diverticulosis, repeat in 10 [id number] dilatation to 54 Icelandic of the distal esophagus. Gastric ulcer, pathology indicating reactive gastropathy. Schatzki' s ring. Hiatal hernia. Negative for Hooks's, negative for H. pylori. Social History Social History Type Response Smoking Status Never smoker Assessment and Plan Extracted from: Title: Ambulatory Patient Education Author: Albert Ramos MD Date: Home Health Care Diabetes and Exercise Exercising regularly is important. It is not just about losing weight. It has many health benefits, such as: Improving your overall fitness, flexibility, and endurance. Increasing your bone density. Helping with weight control. Decreasing your body fat. Increasing your muscle strength. Reducing stress and tension. Improving your overall health. People with diabetes who exercise gain additional benefits because exercise: Reduces appetite. Improves the body's use of blood sugar (glucose). Helps lower or control blood glucose. Decreases blood pressure. Helps control blood lipids (such as cholesterol and triglycerides). Improves the body's use of the hormone insulin by: Increasing the body's insulin sensitivity. Reducing the body's insulin needs. Decreases the risk for heart disease because exercising: Lowers cholesterol and triglycerides levels. Increases the levels of good cholesterol (such as high-density lipoproteins [HDL]) in the body. Lowers blood glucose levels. YOUR ACTIVITY PLAN Choose an activity that you enjoy, and set realistic goals. To exercise safely , you should begin practicing any new physical activity slowly, and gradually increase the intensity of the exercise over ti me. Your health care provider or closed circuit screen watcher can help create an activity plan that works for you. General recommendations include: Encouraging children to engage in at least 60 minutes of physical activity each day. Stretching and performing strength training exercises, such as yoga or weight lifting, at least 2 times per week. Performing a total of at least 150 minutes of moderate-intensity exercise each week, such as brisk walking or water aerobics. Exercising at least 3 days per week, making sure you allow no more than 2 consecutive days to pass without exercising. Avoiding long periods of inactivity (90 minutes or more). When you have to spend an extended period of time sitting down, take frequent breaks to walk or stretch. RECOMMENDATIONS FOR EXERCISING WITH TYPE 1 OR TYPE 2 DIABETES Check your blood glucose before exercising. If blood glucose levels are greater than 240 mg/dL, check for urine ketones. Do not exercise if ketones are present. Avoid injecting insulin into areas of the body that are going to be exercised. For example, avoid injecting insulin into: The arms when playing tennis. The legs when jogging. Keep a record of: Food intake before and after you exercise. Expected peak times of insulin action. Blood glucose levels before and after you exercise. The type and amount of exercise you have done. Review your records with your health care provider. Your health care provider will help you to develop guidelines for adjusting food intake and insulin amounts before and after exercising. If you take insulin or oral hypoglycemic agents, watch for signs and symptoms of hypoglycemia. They include: Dizziness. Shaking. Sweating. Chills. Confusion. Drink plenty of water while you exercise to prevent dehydration or heat stroke. Body water is lost during exercise and must be replaced. Talk to your health care provider before starting an exercise program to make sure it is safe for you. Remember, almost any type of activity is better than none. This information is not intended to replace advice given to you by your health care provider. Make sure you discuss any questions you have with your health care provider. Document Released: 10/17/2004 Document Revised: 05/16/2015 Document Reviewed: 01/04/2014 Exit[employer] Patient Information 2015 [employer]. No follow up information was provided. Extracted from: Title: Office Visit Note Author: Albert Ramos MD Date: 12/13/15 Assessment/Plan Abnormal blood sugar This issue was reviewed, appears stable, and current therapy continued except as mentioned. Appropriate lab was reviewed from the most recent appropriate entry and lab was order ed if needed in the cpoe/nursing orders, and follow up recommended generally in 90 days and no later then six months. Acute UTI Rocephin 1 gram IM for abx coverage. UA reviewed. Keflex 500mg po qid for ten days. Adult-onset obesity Diet and exercise as tolerated [...]
--- OUTSIDE RECORDS SUMMARY | 2017-11-20 17:17 | External Medical Summary | Clinical Summary ---
:1950 Author Organization [facility] Address [address] [place] [address] Care Team Providers Name Role Phone Cookie Sanchez MD Unavailable Unknown, Unknown Unavailable Unavailable Maricruz Bryant MD Unavailable Jeff Santiago MD Unavailable Tolu Cary MD Unavailable Albert Ramos MD Primary Care Provider Source Comments Some departments are not documenting in the electronic medical record. If you do not see the information that you expected, contact Release of Information in the Health Information Management department at [phone] for further assistance in locating additional records.[facility] Allergies Active Allergy Reactions Severity Noted Date Comments Ciprofloxacin NAUSEA ONLY Low 12/27/2014 Causes leg weakness and nausea Tolterodine SEE COMMENTS Low 11/21/2015 Extreme Weakness per pt Levofloxacin UNKNOWN Low 12/27/2014 Causes generalized weakness over entire body Current Medications Prescription Sig. Disp. Refills Start Date End Date Status lisinopril (ZESTRIL) Take 10 mg by Active 10 mg tablet mouth daily. sertraline (ZOLOFT) Take 50 mg by Active 50 mg tablet mouth daily. oxaprozin(+) (DAYPRO) Take 600 mg by Active 600 mg tablet mouth daily. aspirin EC 81 mg Take 81 mg by Active tablet mouth daily. diazepam (VALIUM) 10 Take 10 mg by Active mg tablet mouth every 6 hours as needed for Anxiety. HYDROCODONE/ACETAMINO Take by mouth as Active PHEN (LORTAB 5-325 Needed. PO) estradiol (ESTRACE) Insert or Apply 1 Container 11 06/07/2015 Active 0.01 % (0.1 mg/g) to vaginal area vaginal cream three times weekly. 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 Voiding symptoms arose around time of wheelchair-dependence. Voiding symptoms initially urgency and progressing to insensate incontinence requiring 2 briefs/day. Prior treatments include Flomax and Vesicare - frequent "UTIs" diagnosed during this time - positive cultures without symptoms. PVR: - 67 mls Last Assessment & Plan: Patient with mixed urinary incontinence. Likely multifactorial with large contribution from her neurologic diagnosis of Hereditary Spastic Paraparesis ( HSP). 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 - Given her complex spectrum of symptoms, would greatly benefit from urodynamics. Would plan for VUDS given her difficulty with transfers due to her HSP. She and her asked if this could be air traffic coordinator rdinated with her future visits. Next is scheduled for November 2015, and she would like to wait until then. Will also perform cystoscopy on that day. - Referral for pelvic floor physical therapy. - She emptied reasonably well today with a PVR of 67 mls. Will start Sanctura XR 60 mg daily for her overactivity - She also has stress incontinence and we will consider bulking agents at some point in the future. 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 Will also help with her recurrent positive urine cultures. Recurrent UTI 05/31/2015 Overview: Asymptomatic except for occasional fever or increased leg spasticity. 12/09/12: >100k E. coli 02/09/14: >100k E. coli 07/15/14: >100k E. coli 04/07/15: >100k E. coli Consistently bactrim-resistant Last Assessment & Plan: - See plan for neurogenic bladder. Family History Medical History Relation Name Comments Motor Neuron Disease Father Diabetes Mother Stroke Mother Relation Name Status Comments Father Maternal Grandfather Maternal Grandmother Mother Paternal Grandfather Paternal Grandmother Social History Tobacco Use Types Packs/Day Years Used Date Former Smoker 0.25 40 Quit: 12/27/2004 Smokeless Tobacco: Never Used Comments: Social smoker. Sex Assigned at Date Recorded Not on file Last Filed Vital Signs Vital Sign Reading Time Taken Blood Pressure 135/86 05/21/2016 12:19 PM CDT Pulse 69 05/21/2016 12:19 PM CDT Temperature - - Respiratory Rate - - Oxygen Saturation - - Inhaled Oxygen Concentration - - Weight 89.4 kg (197 lb) 05/21/2016 12:18 PM CDT Height 160 cm (5' 3") 05/21/2016 12:18 PM CDT Body Mass Index 34.9 05/21/2016 12:18 PM CDT Plan of Treatment Health Maintenance Due Date Last Done Comments HEPATITIS C SCREENING 1950 PHYSICAL (COMPREHENSIVE) EXAM 1955 PERTUSSIS VACCINE 1959 TETANUS VACCINE 1965 BREAST CANCER SCREENING 1988 COLORECTAL CANCER SCREENING 1998 SHINGLES VACCINE 2008 OSTEOPOROSIS SCREENING 2013 PREVNAR/PNEUMOVAX (#1) 2013 INFLUENZA VACCINE 05/11/2018
--- OUTSIDE RECORDS SUMMARY | 2017-11-20 17:18 | External Medical Summary | Referral Summary ---
:1950 Author [facility] Address [address] [place] [address] [place] [phone] Care Team Providers Name Role Phone Albert Ramos Primary Care Physician Encounter VC Date(s): 11/16/15 - 11/16/15 [facility] [place] [phone] [place] Discharge Disposition: 01-Home or Self Care Attending Physician: Albert Ramos MD Admitting Physician: Albert Ramos MD Vital Signs Most recent to oldest [Reference Range]: 1 Blood Pressure [90-140/60-90 mmHg] 130/90 mmHg (11/16/15 8:13 AM) Problem List Condition Effective Dates Status [...] # 18 g, 0 Refill(s), Pharmacy : [facility] [id number] Start Date: 08/22/15 Status: Orderedaspirin 325 mg, Oral, Daily, 0 Refill(s) Start Date: 02/08/14 Status: Orderedbaclofen See Instructions, 177 mg per 24 hours per pump, 0 Refill(s) Start Date: 07/13/14 Status: OrderedDaypro 600 mg oral tablet See Instructions, 1 TABS ORAL BID,X90 DAYS, # 180 tabs, eRx: [email or web address] [id number], 1 TABS ORALBID,X90 DAYS Start Date: 07/24/15 Status: Ordereddiazepam 5 mg oral tablet 1-4 tabs, Oral, Daily, Must last 30 days. [facility] Due to be filled., # 60 tabs, 0 Refill(s) Start Date: 10/30/15 Status: OrderedEstrace Vaginal 0.1 mg/g vaginal cream Vaginal, 3x/Wk, 0 Refill(s) Start Date: 11/16/15 Status: OrderedNorco 5 mg-325 mg oral tablet 1-2 tabs, Oral, TID, as needed for pain, # 40 tabs, 0 Refill(s) Start Date: 11/16/15 Status: OrderedZestril 10 mg oral tablet See Instructions, 1 TABS ORAL BEDTIME (ONCE A DAY),X90 DAYS, # 90 tabs, eRx: [facility] [id number], 1 TABS ORAL BEDTIME (ONCE A DAY),X90 DAYS Start Date: 10/23/15 Status: OrderedZoloft 50 mg oral tablet See Instructions, 1 TABS ORAL DAILY,X90 DAYS, # 90 tabs, 1 Refill(s), eRx: [facility] [id number], 1 TABS ORAL DAILY,X90 DAYS Start Date: 10/02/15 Status: Ordered Results Hematology Most recent to oldest [Reference Range]: 1 WBC [4.8-10.8 10*3/uL] 5.7 10*3/uL (11/16/15 8:55 AM) RBC [4.00-5.20] 4.34 (11/16/15 8:55 AM) Hgb [12.0-16.0 gm/dL] 13.7 gm/dL (11/16/15 8:55 AM) Hct [37.0-47.0 %] 43.3 % (11/16/15 8:55 AM) MCV [82.0-99.0 fL] 99.8 fL *HI* (11/16/15 8:55 AM) MCH [27.0-32.0 pg] 31.6 pg (11/16/15 8:55 AM) MCHC [32.0-36.0 gm/dL] 31.6 gm/dL *LOW* (11/16/15 8:55 AM) RDW [11.5-14.5 %] 15.4 % *HI* (11/16/15 8:55 AM) Platelet [150-400 10*3/uL] 207 10*3/uL (11/16/15 8:55 AM) MPV [8.8-14.8 fL] 10.6 fL (11/16/15 8:55 AM) Immature Granulocytes [0.0-1.0 %] 0.2 % (11/16/15 8:55 AM) Neutrophils [51-75 %] 38 % *LOW* (11/16/15 8:55 AM) Lymphocytes [20-46 %] 49 % *HI* (11/16/15 8:55 AM) Monocytes [4-11 %] 10 % (11/16/15 8:55 AM) Eosinophils [0-4 %] 3 % (11/16/15 8:55 AM) Basophils [0-2 %] 0 % (11/16/15 8:55 AM) Neutro Absolute [1.90-7.00 10*3] 2.17 10*3 (11/16/15 8:55 AM) Lymph Absolute [0.80-3.30 10*3] 2.80 10*3 (11/16/15 8:55 AM) [place] Absolute [0.30-1.00 10*3] 0.55 10*3 (11/16/15 8:55 AM) Eos Absolute [0.00-0.50 10*3] 0.14 10*3 (11/16/15 8:55 AM) Baso Absolute [0.00-0.20 10*3] 0.02 10*3 (11/16/15 8:55 AM) Chemistry Most recent to oldest [Reference Range]: 1 Sodium Lvl [135-144 mEq/L] 140 mEq/L (11/16/15 8:55 AM) Potassium Lvl [3.5-5.2 mEq/L] 4.2 mEq/L (11/16/15 8:55 AM) Chloride [99-111 mEq/L] 106 mEq/L (11/16/15 8:55 AM) CO2 [22-31 mEq/L] 24 mEq/L (11/16/15 8:55 AM) AGAP [3-20] 10 (11/16/15 8:55 AM) BUN [10-20 mg/dL] 23 mg/dL *HI* (11/16/15 8:55 AM) Glucose Lvl [70-99 mg/dL] 84 mg/dL (11/16/15 8:55 AM) Creatinine Lvl [0.57-1.11 mg/dL] 1.05 mg/dL (11/16/15 8:55 AM) eGFR [>60 mL/min] 52 mL/min 1 *ABN* (11/16/15 8:55 AM) Calcium Lvl [8.9-10.5 mg/dL] 8.9 mg/dL (11/16/15 8:55 AM) Albumin Lvl [3.4-4.8 gm/dL] 4.0 gm/dL (11/16/15 8:55 AM) Total Protein [6.2-8.1 gm/dL] 6.2 gm/dL (11/16/15 8:55 AM) Globulin [1.8-4.0 gm/dL] 2.2 gm/dL (11/16/15 8:55 AM) ALT [0-55 U/L] 10 U/L (11/16/15 8:55 AM) AST [5-34 U/L] 16 U/L (11/16/15 8:55 AM) Alk Phos [40-150 U/L] 55 U/L (11/16/15 8:55 AM) Bili Total [0.2-1.2 mg/dL] 0.3 mg/dL (11/16/15 8:55 AM) TSH with Reflex Free T4 [0.35-4.94] 0.97 (11/16/15 8:55 AM) 1Result Comment: Multiply eGFR results by 1.21 for race.Urinalysis Most recent to oldest [Reference Range]: 1 UA Color Yellow (11/16/15 3:26 PM) UA Appear Turbid *ABN* (11/16/15 3:26 PM) UA pH [5.0-8.0] 5.5 (11/16/15 3:26 PM) UA Leuk Est [Negative] Pos 1+ *ABN* (11/16/15 3:26 PM) UA Nitrite [Negative] Negative (11/16/15 3:26 PM) UA Protein [Negative] Negative (11/16/15 3:26 PM) UA Glucose [Negative] Negative (11/16/15 3:26 PM) UA Ketones [Negative] Negative (11/16/15 3:26 PM) UA Urobilinogen [<1.0 mg/dL] 0.2 mg/dL (11/16/15 3:26 PM) UA Bili [Negative] Negative (11/16/15 3:26 PM) UA Blood [Negative] Pos 3+ *ABN* (11/16/15 3:26 PM) UA Spec Grav [1.003-1.030] 1.021 (11/16/15 3:26 PM) Type Voided (11/16/15 3:26 PM) UA WBC [0-4] 10-20 *ABN* (11/16/15 3:26 PM) UA RBC [0-4] 0-4 (11/16/15 3:26 PM) Epithelial Cells 2-5 (11/16/15 3:26 PM) UA Bacteria Numerous *ABN* (11/16/15 3:26 PM) Crystals Amorphous (11/16/15 3:26 PM) UA Mucous Present (11/16/15 3:26 PM) Immunizations Vaccine Date Refusal Reason tetanus/diphth/pertuss (Tdap) [...] finger tendon repair 1Diverticulosis, repeat in 10 [id number] dilatation to 54 Japanese of the distal esophagus. Gastric ulcer, pathology indicating reactive gastropathy. Schatzki' s ring. Hiatal hernia. Negative for Hooks's, negative for H. pylori. Social History Social History Type Response Smoking Status Never smoker Assessment and Plan Extracted from: Title: Ambulatory Patient Education Author: Albert Ramos MD Date: Family Medicine Cholesterol Cholesterol is a white, waxy, fat-like substance needed by your body in small amounts. The liver makes all the cholesterol you need. Cholesterol is carried from the liver by the blood through the blood vessels. Deposits of cholesterol (plaque) may build up on blood vessel garcia. These make the arteries narrower and stiffer. Cholesterol plaques increase the risk for heart attack and stroke. You cannot feel your cholesterol level even if it is very high. The only way to know it is high is with a blood test. Once you know your cholesterol levels, you should keep a record of the test results. Work with your health care provider to keep your levels in the desired range. WHAT DO THE RESULTS MEAN? Total cholesterol is a rough measure of all the cholesterol in your blood. LDL is the so-called bad cholesterol. This is the type that deposits cholesterol in the garcia of the arteries. You want this level to be low. HDL is the good cholesterol because it cleans the arteries and carries the LDL away. You want this level to be high. Triglycerides are fat that the body can either burn for energy or store. High levels are closely linked to heart disease. WHAT ARE THE DESIRED LEVELS OF CHOLESTEROL? Total cholesterol below 200. LDL below 100 for people at risk, below 70 for those at very high risk. HDL above 50 is good, above 60 is best. Triglycerides below 150. HOW CAN I LOWER MY CHOLESTEROL? Diet. Follow your diet programs as directed by your health care provider. Choose fish or white meat chicken and turkey, roasted or baked. Limit fatty cuts of red meat, fried foods, and processed meats, such as sausage and lunch meats. Eat lots of fresh fruits and vegetables. Choose whole grains, beans, pasta, potatoes, and cereals. Use only small amounts of olive, corn, or canola oils. Avoid butter, mayonnaise, shortening, or palm kernel oils. Avoid foods with trans fats. Drink skim or nonfat milk and eat low-fat or nonfat yogurt and cheeses. Avoid whole milk, cream, ice cream, egg yolks, and full-fat cheeses. Healthy desserts include winston food cake, mac snaps, animal crackers , hard candy, popsicles, and low-fat or nonfat frozen yogurt. Avoid pastries, cakes, pies, and cookies. Exercise. Follow your exercise programs as directed by your health care provider. A regular program helps decrease LDL and raise HDL. A regular program helps with weight control. Do things that increase your activity level like gardening, walking, or taking the stairs. Ask your health care provider about how you can be more active in your daily life. Medicine. Take medicine only as directed by your health care provider. Medicine may be prescribed by your health care provider to help lower cholesterol and decrease the risk for heart disease. If you have several risk factors, you may need medicine even if your levels are normal. This information is not intended to replace advice given to you by your health care provider. Make sure you discuss any questions you have with your health care provider. Document Released: 04/22/2002 Document Revised: 12/12/2014 Document Reviewed: 05/11/2014 [facility] [place] Patient Information 2015 [employer]. No follow up information was provided. Extracted from: Title: Office Visit Note Author: Albert Ramos MD Date: 11/16/15 Assessment/Plan Abnormal blood sugar This issue was reviewed, appears stable, and current therapy continued except as mentioned. Appropriate lab was reviewed from the most recent appropriate entry and lab was order ed if needed in the cpoe/nursing orders, and follow up recommended generally in 90 days and no later then six months. Lab stable. The patient has family members present who are agreeable with today's plan and have no additional concerns or requests. here. Adult-onset obesity Diet and exercise as tolerated [...] no later then six months. Lab pending. Depression This issue was reviewed, appears stable, and current therapy continued except as mentioned. Appropriate lab was reviewed from the most recent appropriate entry and lab was ordered if need ed in the cpoe/nursing orders, and follow up recommended generally in 90 days and no later then six months. Mood stable. Fatigue Lab pending. Home Health Paperscompleted. 30 minutes were utilized in care and coordination for this patient. Greater then 50% of the time was used for counseling and/or coordination of the patients care. 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 Appropriate lab was reviewed from the most recent appropriate entry an d lab was ordered if needed in the cpoe/nursing orders, and follow up recommended generally in 90 days and no later then six months. HTN (hypertension) This issue was reviewed, appears stable, and [...] Free T4 Urinalysis with Culture if Indicated Hyperlipidemia This issue was reviewed, appears stable, and current therapy continued except as mentioned. Appropriate lab was reviewed from the most recent appropriate entry and lab was ordered if needed in the cpoe/nursing orders, and follow up recommended generally in 90 days and no later then six months. Lab pending. Orders: HYDROcodone-acetaminophen, 1-2 tabs, Oral, TID, as needed for pain, # 40 tabs, 0 Refill(s)
--- OUTSIDE RECORDS SUMMARY | 2017-11-20 17:18 | External Medical Summary | Referral Summary ---
:1950 Author Organization [facility] [address] [place] [address] Care Team Providers Name Role Phone Albert Concepcion Primary Care Physician Encounter [facility] [id number] Date(s): 08/26/16 - 08/26/16 [facility] [address] [place] [phone] Discharge Diagnosis: Acute UTI Discharge Diagnosis: CKD (chronic kidney disease), stage II Discharge Diagnosis: GERD without esophagitis Discharge Diagnosis: Adult-onset obesity Discharge Diagnosis: Abnormal blood sugar Discharge Diagnosis: Hyperlipidemia Discharge Diagnosis: Wheelchair dependent Discharge Diagnosis: Depression Discharge Diagnosis: Hypertension 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, hereditary Discharge Disposition: 01-Home or Self Care Attending Physician: Albert Concepcion MD Admitting Physician: Albert Concepcion MD Vital Signs Most recent to oldest [Reference Range]: 1 Blood Pressure [90-140/60-90 mmHg] 140/90 mmHg (08/26/16 3:03 PM) Problem List Condition Effective Dates Status [...] # 18 g, 0 Refill(s), Pharmacy : [facility] Start Date: 08/22/15 Status: Orderedaspirin 325 mg, Oral, Daily, 0 Refill(s) Start Date: 02/08/14 Status: Orderedbaclofen See Instructions, 177 mg per 24 hours per pump, 0 Refill(s) Start Date: 07/13/14 Status: OrdereddiazePAM 5 mg oral tablet 1-4 tabs, Oral, Daily, RX must last 30 days. [facility], # 60 tabs, 0 Refill(s) Start Date: 08/06/16 Status: OrderedEstrace Vaginal 0.1 mg/g vaginal cream Vaginal, 3x/Wk, 0 Refill(s) Start Date: 11/16/15 Status: Orderedlisinopril 10 mg oral tablet See Instructions, TAKE 1 TABLET BY MOUTH EVERY NIGHT AT BEDTIME, # 90 tabs, 1 Refill(s), eRx: [facility], TAKE 1 TABLET BY MOUTH EVERY NIGHT AT BEDTIME Start Date: 04/27/16 Status: OrderedMacrobid 100 mg oral capsule 100 mg 1 caps, Oral, BID, X 10 days, # 20 caps, 1 Refill(s), Pharmacy: [facility], 1caps Oral BID,x10 days Start Date: 08/26/16 Stop Date: 09/15/16 Status: OrderedNorco 5 mg-325 mg oral tablet 1-2 tabs, Oral, TID, as needed for pain, # 40 tabs, 0 Refill(s) Start Date: 08/26/16 Status: Orderedomeprazole 40 mg oral delayed release capsule 40 mg 1 caps, Oral, Daily, FURTHER REFILLS NEED TO BE SENT TO PCP DR. CONCEPCION. , # 30 caps, 0 Refill(s), Pharmacy: [facility] [id number], 1 caps Oral Daily,Instr:FURTHER REFILLS NEED TO BE SENT TOPCP DR. CONCEPCION. Start Date: 07/23/16 Status: Orderedoxaprozin 600 mg oral tablet See Instructions, TAKE 1 TABLET BY MOUTH TWICE DAILY, # 180 tabs, eRx: [facility] [id number], TAKE 1 TABLET BY MOUTH TWICE DAILY Start Date: 06/24/16 Status: Orderedsertraline 50 mg oral tablet See Instructions, TAKE 1 TABLET BY MOUTH EVERY DAY, # 90 tabs, 1 Refill(s), eRx : [facility] [id number], TAKE 1 TABLET BY MOUTH EVERY DAY Start Date: 06/25/16 Status: Orderedwheelchair wheelchair, See Instructions, PT/OT eval and treat, # 1 Each, 0 Refill(s), Attn : Lucero Child; fax to [phone] Start Date: 06/05/16 Status: Ordered Results No data available for this section Immunizations Given and Recorded Vaccine Date Status Refusal Reason tetanus/diphth/pertuss (Tdap) adult/adol 07/18/08 Recorded influenza virus vaccine, inactivated 04/11/16 Recorded influenza virus vaccine, inactivated1 05/04/15 Recorded influenza virus vaccine, inactivated 05/16/14 Recorded influenza virus vaccine, live 05/12/13 Given influenza virus vaccine, live 05/25/12 Given pneumococcal 23-polyvalent vaccine 07/18/08 Recorded pneumococcal 23-polyvalent vaccine 05/04/03 [facility] Procedure Date Related Diagnosis Body Site COLORECTAL CANCER SCREENING; COLONOSCOPY ON 05/03/15 INDIVIDUAL NOT MEETING CRITERIA FOR HIGH RISK1 Esophagogastroduodenoscopy and biopsy2 05/03/15 Cholecystectomy Surgery - baclofen pump replacement Surgery - left ring finger tendon repair 1Diverticulosis, repeat in 10 [id number] dilatation to 54 [place]ri[place] of the distal esophagus. Gastric ulcer, pathology indicating reactive gastropathy. Schatzki' s ring. Hiatal hernia. Negative for Hooks's, negative for H. pylori. Social History Social History Type Response Smoking Status Never smoker Assessment and Plan Extracted from: Title: Office Visit Note Author: Albert Concepcion MD Date: 08/26/16 Assessment/Plan Abnormal blood sugar This issue was reviewed, appears stable, and current therapy continued except as mentioned. Appropriate lab was reviewed from the most recent appropriate entry and lab was ordered if needed in the c monster/nursing orders, and follow up recommended generally in 90 days and no later then six months. Acute UTI Macrobid 100mg po bid for ten days and one refill. To Urology when interested. Adult-onset obesity Diet and exercise as tolerated [...] later then six months. Limit nsaids. Depression This issue was reviewed, appears stable, and current therapy continued except as mentioned. Appropriate lab was reviewed from the most recent appropriate entry and lab was ordered if needed in the cpoe/nursing orders, and follow up recommended generally in 90 days and no later then six months. Mood stable. GERD without esophagitis This issue was reviewed, [...] and no later then six months. Seeing Neurology on 08/30/16. Hyperlipidemia This issue was reviewed, appears stable, and current therapy continued except as mentioned. Appropriate lab was reviewed from the most recent appropriate entry and lab was ordered if needed in the c monster/nursing orders, and follow up recommended generally in 90 days and no later then six months. Lab stable. Hypertension This issue was reviewed, appears stable, [...] been no chest pain, chest pressure, soa/kay. Spastic paraplegia, hereditary This issue was reviewed, appears stable, and current therapy continued except as mentioned. Appropriate lab was reviewed from the most recent appropriate entry and lab was ordered if needed in the c monster/nursing orders, and follow up recommended generally in 90 days and no later then six months. Seeing Neurology on Friday this week. [place] refilled. Wheelchair dependent This issue was reviewed, appears stable, and current therapy continued except as mentioned. Appropriate lab was reviewed from the most recent appropriate entry and lab was ordered if needed in the c monster/nursing orders, and follow up recommended generally in 90 days and no later then six months. The patient has family members present who are agreeable with today's plan and have no additional concerns or requests. here. Other issues to be addressed at a separate appt. Addendum by Albert Concepcion MD on August 26, 2016 15:51:30 [employer] signed for battery for power chair.
--- OUTSIDE RECORDS SUMMARY | 2017-11-20 17:18 | External Medical Summary | Referral Summary ---
:1950 Author [facility] [address] [place] [address] [place] [address] Care Team Providers Name Role Phone Albert Ramos Primary Care Physician Encounter [facility] Date(s): 03/07/16 - 03/07/16 [facility] [address] [place] [phone] Discharge Disposition: 01-Home or Self Care Attending Physician: Albert Ramos MD Admitting Physician: Albert Ramos MD Vital Signs Most recent to oldest [Reference Range]: 1 Blood Pressure [90-140/60-90 mmHg] 100/70 mmHg (03/07/16 1:23 PM) Problem List Condition Effective Dates Status [...] # 18 g, 0 Refill(s), Pharmacy : [facility] [id number] Start Date: 08/22/15 Status: Orderedaspirin 325 mg, Oral, Daily, 0 Refill(s) Start Date: 02/08/14 Status: Orderedbaclofen See Instructions, 177 mg per 24 hours per pump, 0 Refill(s) Start Date: 07/13/14 Status: OrderedDaypro 600 mg oral tablet See Instructions, 1 TABS ORAL BID,X90 DAYS, # 180 tabs, eRx: [facility] [id number], 1 TABS ORALBID,X90 DAYS Start Date: 07/24/15 Status: Ordereddiazepam 5 mg oral tablet 1-4 tabs, Oral, Daily, RX must last 30 days. [facility], # 60 tabs, 0 Refill(s) Start Date: 03/07/16 Status: OrderedEstrace Vaginal 0.1 mg/g vaginal cream Vaginal, 3x/Wk, 0 Refill(s) Start Date: 11/16/15 Status: OrderedKeflex 500 mg oral capsule 500 mg 1 caps, Oral, QID, X 10 days, # 40 caps, 0 Refill(s), Pharmacy: [facility] [id number], 1caps Oral QID,x10 days Start Date: 03/07/16 Stop Date: 03/17/16 Status: Orderedlisinopril 10 mg oral tablet See Instructions, TAKE 1 TABLET BY MOUTH EVERY NIGHT AT BEDTIME, # 90 tabs, eRx : [facility] [id number], TAKE 1 TABLET BY MOUTH EVERY NIGHT AT BEDTIME Start Date: 01/22/16 Status: OrderedNorco 5 mg-325 mg oral tablet 1-2 tabs, Oral, TID, as needed for pain, # 40 tabs, 0 Refill(s) Start Date: 02/19/16 Status: Orderedomeprazole 40 mg oral delayed release capsule See Instructions, TAKE 1 CAPSULE BY MOUTH EVERY DAY, # 30 caps, 6 Refill(s), eRx : [facility] [id number], TAKE 1 CAPSULE BY MOUTH EVERY DAY Start Date: 12/29/15 Status: Orderedoxaprozin 600 mg oral tablet See Instructions, TAKE 1 TABLET BY MOUTH TWICE DAILY, # 180 tabs, eRx: [facility] [id number], TAKE 1 TABLET BY MOUTH TWICE DAILY Start Date: 12/29/15 Status: OrderedViberzi 75 mg oral tablet 75 mg 1 tabs, Oral, BID, with food [facility], # 60 tabs, 0 Refill(s) Start Date: 03/07/16 Status: OrderedZoloft 50 mg oral tablet See Instructions, 1 TABS ORAL DAILY,X90 DAYS, # 90 tabs, 1 Refill(s), eRx: [facility] [id number], 1 TABS ORAL DAILY,X90 DAYS Start Date: 10/02/15 Status: Ordered Results No data available for this section Immunizations Vaccine Date Refusal Reason tetanus/diphth/pertuss (Tdap) adult/adol 07/18/08 influenza virus vaccine, inactivated1 05/04/15 influenza virus vaccine, inactivated 05/16/14 influenza virus vaccine, live 05/12/13 influenza virus vaccine, live 05/25/12 pneumococcal 23-polyvalent vaccine 07/18/08 pneumococcal 23-polyvalent vaccine 05/04/03 1Location History: [facility] Procedures Procedure Date Related Diagnosis Body Site COLORECTAL CANCER SCREENING; COLONOSCOPY ON 05/03/15 INDIVIDUAL NOT MEETING CRITERIA FOR HIGH RISK1 Esophagogastroduodenoscopy and biopsy2 05/03/15 Cholecystectomy Surgery - baclofen pump replacement Surgery - left ring finger tendon repair 1Diverticulosis, repeat in 10 [id number] dilatation to 54 [place]ian of the distal esophagus. Gastric ulcer, pathology indicating reactive gastropathy. Schatzki' s ring. Hiatal hernia. Negative for Hooks's, negative for H. pylori. Social History Social History Type Response Smoking Status Never smoker Assessment and Plan Extracted from: Title: Ambulatory Patient Education Author: Albert Ramos MD Date: Nephrology Dialysis Dialysis is a procedure that replaces some of the work healthy kidneys do. It is done when you lose about 8590% of your kidney function. It may also be done earlier if your symptoms may be improved b y dialysis. During dialysis, wastes, salt, and extra water are removed from the blood, and the levels of certain chemicals in the blood (such as potassium) are maintained. Dialysis is done in sessions. Dialysis sessions are continued until the kidneys get better. If the kidneys cannot get better, such as in end-stage kidney disease, dialysis is continued for life or until you receive a new kidney (kid magaly transplant). There are two types of dialysis: hemodialysis and peritoneal dialysis. WHAT IS HEMODIALYSIS? Hemodialysis is a type of dialysis in which a machine called a dialyzer is used to filter the blood. Before beginning hemodialysis, you will have surgery to create a site where blood can be removed from the body and returned to the body (vascular access). There are three types of vascular accesses: Arteriovenous fistula. To create this type of access, an artery is connected to a vein (usually in the arm). A fistula takes 16 months to develop after surgery. If it develops properly, it usu ally lasts longer than the other types of vascular accesses. It is also less likely to become infected and cause blood clots. Arteriovenous graft. To create this type of access, an artery and a vein in the arm are connected with a tube. A graft may be used within 23 weeks of surgery. A venous catheter. To create this type of access, a thin, flexible tube (catheter) is placed in a large vein in your neck, chest, or groin. A catheter may be used right away. It is usually used a s a temporary access when dialysis needs to begin immediately. During hemodialysis, blood leaves the body through your access. It travels through a tube to the dialyzer, where it is filtered. The blood then returns to your body through another tube. Hemodialysis is usually performed by a health care provider at a hospital or dialysis center three times a week. Visits last about 34 hours. It may also be performed with the help of another person at home with training. WHAT IS PERITONEAL DIALYSIS? Peritoneal dialysis is a type of dialysis in which the thin lining of the abdomen (peritoneum) is used as a filter. Before beginning peritoneal dialysis, you will have surgery to place a catheter in you r abdomen. The catheter will be used to transfer a fluid called dialysate to and from your abdomen. At the start of a session, your abdomen is filled with dialysate. During the session, wastes, salt, an d extra water in the blood pass through the peritoneum and into the dialysate. The dialysate is drained from the body at the end of the session. The process of filling and draining the dialysate is call ed an exchange. Exchanges are repeated until you have used up all the dialysate for the day. Peritoneal dialysis may be performed by you at home or at almost any other location. It is done every day. You may need up to five exchanges a day. The amount of time the dialysate is in your body betwe en exchanges is called a dwell. The dwell depends on the number of exchanges needed and the characteristics of the peritoneum. It usually varies from 1.5 3 hours. You may go about your day normally be tween exchanges. Alternately, the exchanges may be done at night while you sleep, using a machine called a cycler. WHICH TYPE OF DIALYSIS SHOULD I CHOOSE? Both hemodialysis and peritoneal dialysis have advantages and disadvantages. Talk to your health care provider about which type of dialysis would be best for you. Your lifestyle and preferences should b e considered along with your medical condition. In some cases, only one type of dialysis may be an option. Advantages of hemodialysis It is done less often than peritoneal dialysis. Someone else can do the dialysis for you. If you go to a dialysis center, your health care provider will be able to recognize any problems right away. If you go to a dialysis center, you can interact with others who are having dialysis. This can provide you with emotional support. Disadvantages of hemodialysis Hemodialysis may cause cramps and low blood pressure. It may leave you feeling tired on the days you have the treatment. If you go to a dialysis center, you will need to make weekly appointments and work around the center's schedule. You will need to take extra care when traveling. If you go to a dialysis center, you will need to make special arrangements to visit a dialysis center near your destination. If you are having christianne atments at home, you will need to take the dialyzer with you to your destination. You will need to avoid more foods than you would need to avoid on peritoneal dialysis. Advantages of peritoneal dialysis It is less likely than hemodialysis to cause cramps and low blood pressure. You may do exchanges on your own wherever you are, including when you travel. You do not need to avoid as many foods as you do on hemodialysis. Disadvantages of peritoneal dialysis It is done more often than hemodialysis. Performing peritoneal dialysis requires you to have dexterity of the hands. You must also be able to lift bags. You will have to learn sterilization techniques. You will need to practice them every day to reduce the risk of infection. WHAT CHANGES WILL I NEED TO MAKE TO MY DIET DURING DIALYSIS? Both hemodialysis and peritoneal dialysis require you to make some changes to your diet. For example, you will need to limit your intake of foods high in the minerals phosphorus and potassium. You will also need to limit your fluid intake. Your dietitian can help you plan meals. A good meal plan can improve your dialysis and your health. WHAT SHOULD I EXPECT WHEN BEGINNING DIALYSIS? Adjusting to the dialysis treatment, schedule, and diet can take some time. You may need to stop working and may not be able to do some of the things you normally do. You may feel anxious or depressed w hen beginning dialysis. Eventually, many people feel better overall because of dialysis. Some people are able to return to work after making some changes, such as reducing work intensity. WHERE CAN I FIND MORE INFORMATION? National Kidney Foundation: www.kidney.org [place] [employer]: www.aakp.org [place] [employer]: www.kidneyfund.org This information is not intended to replace advice given to you by your health care provider. Make sure you discuss any questions you have with your health care provider. Document Released: 10/18/2003 Document Revised: 08/18/2015 Document Reviewed: 09/21/2013 [employer] Patient Information 2016 [place]. No follow up information was provided. Extracted from: Title: Office Visit Note Author: Albert Ramos MD Date: 03/07/16 Assessment/Plan Acute UTI Rocephin1 Gram IM. Keflex 500mg po qid for ten days. The patient has family members present who are agreeable with today's plan and have no additional concerns or requests. [place] hunt here.Monitored for 30 minutes AFTER rocephin. Adult-onset obesity Diet and exercise as tolerated [...] days and no later then six months. Fatigue We discussed several options for treatment for this condition. The patient declined any changes or other treatments at this time. To Sleep Medicine when interested to check for narcolepsy. Irritable bowel syndrome Trial of viberzi 75mg po bid. Side effects discussed. To GI when willing. Neuromuscular disorder This issue was reviewed, appears stable, and current therapy continued except as mentioned. Appropriate lab was reviewed from the most recent appropriate entry and lab was ord ered if needed in the cpoe/nursing orders, and follow up recommended generally in 90 days and no later then six months. Refilled her valium. Wheelchair dependent This issue was reviewed, appears stable, and current therapy continued except as mentioned. Appropriate lab was reviewed from the most recent appropriate entry and lab was order ed if needed in the cpoe/nursing orders, and follow up recommended generally in 90 days and no later then six months. Orders: cephalexin, 500 mg 1 caps, Oral, QID, X 10 days, # 40 caps, 0 Refill( s), Pharmacy: [facility] [id number], 1 caps Oral QID,x10 days diazepam, 1-4 tabs, Oral, Daily, RX must last 30 days. [facility], # 60 tabs, 0 Refill(s) eluxadoline, 75 mg 1 tabs, Oral, BID, with food [facility], # 60 tabs, 0 Refill(s)
--- OUTSIDE RECORDS SUMMARY | 2017-11-20 17:18 | External Medical Summary | Continuity of Care Document ---
:1950 Author Organization Via [facility] Allergies Active Description Code Type Severity Reaction Onset Reported/ Identified Relationship Clinical to Patient Status Yes CIPRO 14023 Drug N/A N/A 35853 Aller 2 gy Yes DETROL 89550 Drug N/A N/A 03857 Aller 1 gy Yes LEVAQUIN 63961 Drug N/A N/A 72758 Aller 1 gy Yes ciprofloxaci NKMA N/A N/A 12/09/2013 n Yes levofloxacin NKMA N/A N/A 12/09/2013 Yes Quinolones levof AdvRe Unknown EXTREME 05/02/2015 loxac ac NAUSEA in Yes Quinolones cipro AdvRe Unknown EXTREME 05/02/2015 floxa ac WEAKNESS donnell AND NAUSEA Yes Detrol NKMA N/A N/A 12/13/2015 Yes Cipro Drug Mild N/A 09/11/2016 Aller gy Yes Detrol Drug Mild N/A 09/11/2016 Aller gy Yes Levaquin Drug Mild to N/A 09/11/2016 Aller moderate gy Medications Medication Packaging Start Stop Route Dosage Sig Date Date 02/19/20 Oral 325 mg aspirin(aspirin) 4 17 325 mg, Oral, Daily 02/10/20 SubCutaneous 3.6 mg liraglutide(Vict 4 14 3.6 mg, ismael) SubCutaneous , Daily tabs 02/16/20 Oral mg oxaprozin(Daypro 4 14 tabs, Oral, 600 mg oral BID tablet) 1 tabs 02/15/20 Oral 50 mg sertraline(Zolof 4 14 1 tabs, t 50 mg oral Oral, Daily, tablet) 90 tabs 1 tabs 02/10/20 Oral sulfamethoxazole 4 14 1 tabs, -trimethoprim(Ba Oral, Daily, ctrim DS 800 30 tabs mg-160 mg oral tablet) 1 tabs 02/10/20 Oral sulfamethoxazole 4 14 1 tabs, -trimethoprim(Ba Oral, Daily, ctrim DS 800 60 tabs mg-160 mg oral tablet) 1 caps 02/20/20 Oral 500 mg cephalexin(Kefle 4 14 1 caps, x 500 mg oral Oral, QID, capsule) 40 caps 1 tabs 06/13/20 Oral sulfamethoxazole 4 14 1 tabs, -trimethoprim(Ba Oral, Daily, ctrim DS 800 60 tabs mg-160 mg oral tablet) 04/04/20 Oral HYDROcodone-acet 4 14 1-2 tabs, aminophen([place] Oral, TID, 5 mg-325 mg oral [facility], tablet) 40 tabs, PRN: as needed for pain 02/10/20 IntraMuscular 1 g cefTRIAXone(roce 4 14 1 g, phin injection) IntraMuscula r, Once 1 tabs 07/13/20 Oral 600 mg oxaprozin(Daypro 4 14 1 tabs, 600 mg oral Oral, BID, tablet) 180 tabs 03/28/20 diazepam(diazepa 4 14 See m 5 mg oral Instructions tablet) , May take 1 or 2 or 3 or 4 tabs daily as needed. Not to exceed 4 tabs in a day. #60 Must last 30 days. - FAX TO NE[facility], 60 tabs 0.6 mg 04/11/20 SubCutaneous liraglutide(Vict 4 15 0.6 mg, ismael 18 mg/3 mL SubCutaneous subcutaneous , Daily solution) 04/25/20 diazepam(diazepa 4 14 See m 5 mg oral Instructions tablet) , May take 1 or 2 or 3 or 4 tabs daily as needed. Not to exceed 4 tabs in a day. #60 Must last 30 days. - FAX TO [facility], 60 tabs 05/16/20 Oral HYDROcodone-acet 4 14 1-2 tabs, aminophen([place] Oral, TID, 5 mg-325 mg oral [facility], tablet) 40 tabs, PRN: as needed for pain 05/30/20 diazepam(diazepa 4 14 See m 5 mg oral Instructions tablet) , May take 1 or 2 or 3 or 4 tabs daily as needed. Not to exceed 4 tabs in a day. #60 Must last 30 days. - FAX TO Tamara lovett fill 04-27-14, 60 tabs 06/30/20 Oral HYDROcodone-acet 4 14 1-2 tabs, aminophen([place] Oral, TID, 5 mg-325 mg oral 40 tabs, tablet) PRN: as needed for pain 06/30/20 diazepam(diazepa 4 14 See m 5 mg oral Instructions tablet) , May take 1 or 2 or 3 or 4 tabs daily as needed. Not to exceed 4 tabs in a day. #60 Must last 30 days. - FAX TO Tamara y fill 04-27-14, 60 tabs 04/07/20 sulfamethoxazole 4 15 See -trimethoprim(phelps Instructions lfamethoxazole-t , TAKE 1 rimethoprim 800 TABLET BY mg-160 mg oral MOUTH EVERY tablet) DAY, 60 tabs 08/01/20 diazepam(diazepa 4 14 See m 5 mg oral Instructions tablet) , May take 1 or 2 or 3 or 4 tabs daily as needed. Not to exceed 4 tabs in a day. #60 Must last 30 days. - FAX TO Tamara y fill 04-27-14, 60 tabs 08/22/19 Oral HYDROcodone-acet 4 15 1-2 tabs, aminophen([place]us Oral, TID, 5 mg-325 mg oral 40 tabs, tablet) PRN: as needed for pain baclofen(baclofe 4 See n) Instructions , 177 mg per 24 hours per pump 1 tabs 10/12/19 Oral 10 mg lisinopril(Zestr 4 15 1 tabs, il 10 mg oral Oral, tablet) Bedtime (once a day), 90 tabs 1 tabs 01/10/20 Oral 50 mg sertraline(Zolof 4 15 1 tabs, t 50 mg oral Oral, Daily, tablet) 90 tabs 1 tabs 07/24/20 Oral 600 mg oxaprozin(Daypro 4 15 1 tabs, 600 mg oral Oral, BID, tablet) 180 tabs 08/31/19 diazepam(diazepa 4 15 See m 5 mg oral Instructions tablet) , May take 1 or 2 or 3 or 4 tabs daily as needed. Not to exceed 4 tabs in a day. #60 Must last 30 days. - FAX TO [facility] y fill 04-27-14, 60 tabs 09/30/19 diazepam(diazepa 5 15 See m 5 mg oral Instructions tablet) , May take 1 or 2 or 3 or 4 tabs daily as needed. Not to exceed 4 tabs in a day. #60 Must last 30 days. - FAX TO [facility] y fill 04-27-14, 60 tabs 11/08/19 diazepam(diazepa 5 15 See m 5 mg oral Instructions tablet) , May take 1 or 2 or 3 or 4 tabs daily as needed. Not to exceed 4 tabs in a day. #60 Must last 30 days. - FAX TO [facility]-, 60 tabs 01/24/20 lisinopril(Zestr 5 15 See il 10 mg oral Instructions tablet) , 1 TABS ORAL BEDTIME (ONCE A DAY),X90 DAYS, 90 tabs 11/10/19 diazepam(diazepa 5 15 See m 5 mg oral Instructions tablet) , May take 1 or 2 or 3 or 4 tabs daily as needed. Not to exceed 4 tabs in a day. #60 Must last 30 days. - FAX TO [facility]-, 60 tabs 04/06/20 sertraline(Zolof 5 15 See t 50 mg oral Instructions tablet) , 1 TABS ORAL DAILY,X90 DAYS, 90 tabs 02/21/20 Oral diazepam(diazepa 5 15 1-4 tabs, m 5 mg oral Oral, Daily, tablet) Must last 30 days. May fill [facility] REFILLS, 60 tabs, 0 Refill(s) 04/24/20 lisinopril(Zestr 5 15 See il 10 mg oral Instructions tablet) , 1 TABS ORAL BEDTIME (ONCE A DAY),X90 DAYS, 90 tabs 07/03/20 sertraline(Zolof 5 15 See t 50 mg oral Instructions tablet) , 1 TABS ORAL DAILY,X90 DAYS, 90 tabs 11/16/19 Oral HYDROcodone-acet 5 16 1-2 tabs, aminophen([place] Oral, TID, 5 mg-325 mg oral PRN: as tablet) needed for pain, 40 tabs, 0 Refill(s) 1 caps 05/07/20 Oral 100 mg nitrofurantoin(M 5 15 100 mg=1 acrobid 100 mg caps, Oral, oral capsule) Daily, for 30 days, 30 caps, 0 Refill(s) 07/24/20 lisinopril(Zestr 5 15 See il 10 mg oral Instructions tablet) , 1 TABS ORAL BEDTIME (ONCE A DAY),X90 DAYS, 90 tabs 05/24/20 Oral diazepam(diazepa 5 15 1-4 tabs, m 5 mg oral Oral, Daily, tablet) Must last 30 days. [facility], 60 tabs, 0 Refill(s) ORAL ORAL 15 ZOLOFT 5 daily ORAL ORAL 20 VALIUM 5 at bedtime ORAL ORAL 40 NORCO 5 every 6 hours ORAL ORAL 7 MACROBID 5 at bedtime ORAL ORAL 60 DAYPRO 5 twice daily ORAL ORAL BACLOFEN 5 daily ORAL ORAL 30 ASPIRIN EC 5 daily 08/22/19 nitrofurantoin(M 5 16 See acrobid 100 mg Instructions oral capsule) , 1 CAPS ORAL DAILY,X30 DAYS, 30 caps 10/02/19 sertraline(Zolof 5 16 See t 50 mg oral Instructions tablet) , 1 TABS ORAL DAILY,X90 DAYS, 90 tabs 11/16/19 Oral omeprazole(omepr 6 16 Oral, Daily, azole) 0 Refill(s) 2 puffs Inhalation albuterol(albute 6 2 puffs, rol [facility] free 90 Inhalation, mcg/inh q4hr, PRN: inhalation as needed aerosol) for wheezing, 18 g, 0 Refill(s) 2 puffs 02/19/20 Inhalation albuterol(albute 6 17 2 puffs, rol [facility] free 90 Inhalation, mcg/inh q4hr, PRN: inhalation as needed aerosol) for wheezing, 18 g, 0 Refill(s) 08/31/19 predniSONE(predn 6 16 See iSONE 10 mg oral Instructions tablet) , 3 tabs Oral Daily for three days 2 tabs Oral Daily three days 1 tab Oral Daily for three days, 18 tabs, 0 Refill(s) 1 tabs 08/29/19 Oral 875 mg amoxicillin(amox 6 16 875 mg=1 icillin 875 mg tabs, Oral, oral tablet) BID, for 7 days, 14 tabs, 0 Refill(s) sertraline(Zolof 6 See t 50 mg oral Instructions tablet) , 1 TABS ORAL DAILY,X90 DAYS, 90 tabs, 1 Refill(s) Vaginal estradiol 6 Vaginal, topical(Estrace 3x/Wk, 0 Vaginal 0.1 mg/g Refill(s) vaginal cream) 02/19/20 Oral HYDROcodone-acet 6 16 1-2 tabs, aminophen([place] Oral, TID, 5 mg-325 mg oral PRN: as tablet) needed for pain, 40 tabs, 0 Refill(s) 12/13/19 IntraMuscular 1 g cefTRIAXone(cefT 6 16 1 g, RIAXone) IntraMuscula r, Once 1 caps 12/23/19 Oral 500 mg cephalexin(Kefle 6 16 500 mg=1 x 500 mg oral caps, Oral, capsule) QID, for 10 days, 40 caps, 0 Refill(s) 03/07/20 sulfamethoxazole 6 16 See -trimethoprim(phelps Instructions lfamethoxazole-t , TAKE 1 rimethoprim 800 TABLET BY mg-160 mg oral MOUTH EVERY tablet) DAY, 60 tabs 03/07/20 IntraMuscular 2 g cefTRIAXone(cefT 6 16 2 g, RIAXone) IntraMuscula r, Once 1 caps 03/17/20 Oral 500 mg cephalexin(Kefle 6 16 500 mg=1 x 500 mg oral caps, Oral, capsule) QID, for 10 days, 40 caps, 0 Refill(s) 1 tabs Oral 75 mg eluxadoline(Vibe 6 75 mg=1 rzi 75 mg oral tabs, Oral, tablet) BID, with food [facility], 60 tabs, 0 Refill(s) Oral diazepam(diazepa 6 1-4 tabs, m 5 mg oral Oral, Daily, tablet) RX must last 30 days. [facility], 60 tabs, 0 Refill(s) 06/25/20 sertraline(sertr 6 16 See les 50 mg oral Instructions tablet) , TAKE 1 TABLET BY MOUTH EVERY DAY, 90 tabs 08/26/19 Oral HYDROcodone-acet 6 17 1-2 tabs, aminophen([place] Oral, TID, 5 mg-325 mg oral PRN: as tablet) needed for pain, 40 tabs, 0 Refill(s) 11/16/19 sertraline(sertr 6 17 See les 50 mg oral Instructions tablet) , TAKE 1 TABLET BY MOUTH EVERY DAY, 90 tabs, 1 Refill(s) 11/16/19 Oral HYDROcodone-acet 7 17 1-2 tabs, aminophen([place] Oral, TID, 5 mg-325 mg oral PRN: as tablet) needed for pain, 40 tabs, 0 Refill(s) 1 caps 09/15/19 Oral 100 mg nitrofurantoin(M 7 17 100 mg=1 acrobid 100 mg caps, Oral, oral capsule) BID, for 10 days, 20 caps, 1 Refill(s) Ampule 5-325 mg Lortab 5 mg-325 7 take 1 (one) mg tablet Tablet by Oral route daily as needed Ampule 10 mg Zestril 10 mg 7 take 1 (one) tablet Tablet by Oral route daily Ampule 10 mg Valium 10 mg 7 take 1 (one) tablet Tablet by Oral route daily Ampule 81 mg aspirin 81 mg 7 take 1 (one) chewable tablet by Oral route daily Ampule 40 mg omeprazole 40 mg 7 take 1 (one) capsule,delayed by Oral release route daily Ampule 50 mg Zoloft 50 mg 7 take 1 (one) tablet Tablet by Oral route daily Ampule 600 mg Daypro 600 mg 7 take 1 (one) tablet Tablet by Oral route daily Capsule 10/10/19 0.4 mg tamsulosin 0.4 7 17 take 1 (one) mg capsule by Oral route at bedtime sulfamethoxazole 7 See -trimethoprim([facility]helps Instructions lfamethoxazole-t , TAKE 1 rimethoprim 800 TABLET BY mg-160 mg oral MOUTH EVERY tablet) DAY, 60 tabs Oral HYDROcodone-acet 7 1-2 tabs, aminophen([place] Oral, TID, 5 mg-325 mg oral PRN: as tablet) needed for pain, 40 tabs, 0 Refill(s) 1 caps 11/16/19 Oral 0.4 mg tamsulosin(Floma 7 17 0.4 mg=1 x 0.4 mg oral caps, Oral, capsule) Bedtime (once a day), from neurology, 90 caps, 0 Refill(s) 1 tabs 11/26/19 Oral sulfamethoxazole 7 17 1 tabs, -trimethoprim(Ba Oral, BID, ctrim DS 800 for 10 days, mg-160 mg oral 20 tabs, 0 tablet) Refill(s) 1 tabs 12/31/19 Oral 100 mg sertraline(sertr 7 17 100 mg=1 les 100 mg tabs, Oral, oral tablet) Daily, Note dose increase., 90 tabs, 0 Refill(s) 1 tabs Oral 10 mg lisinopril(lisin 7 10 mg=1 opril 10 mg oral tabs, Oral, tablet) Bedtime (once a day), 90 tabs, 1 Refill(s) 2 tabs 03/11/20 Oral 100 mg sertraline(sertr 7 17 100 mg=2 les 50 mg oral tabs, Oral, tablet) Daily, 90 tabs, 1 Refill(s) Oral diazepam(diazePA 7 1-4 tabs, M 5 mg oral Oral, Daily, tablet) RX must last 30 days. May refill 02/06/17 [facility], 60 tabs, 0 Refill(s) 1 caps 02/29/20 Oral 500 mg cephalexin(Kefle 7 17 500 mg=1 x 500 mg oral caps, Oral, capsule) QID, for 10 days, 40 caps, 0 Refill(s) sertraline(sertr 7 See les 100 mg Instructions oral tablet) , TAKE 1 TABLET BY MOUTH DAILY. NOTE DOSE INCREASE, 90 tabs 04/15/20 Oral diazepam(diazePA 7 17 1-4 tabs, M 5 mg oral Oral, Daily, tablet) RX must last 30 days. [facility], 60 tabs, 0 Refill(s) 05/15/20 Oral diazepam(diazePA 7 17 1-4 tabs, M 5 mg oral Oral, Daily, tablet) RX must last 30 days. [facility] may refill 04/16/17, 60 tabs, 0 Refill(s) Oral HYDROcodone-acet 7 1-2 tabs, aminophen([place] Oral, TID, 5 mg-325 mg oral PRN: as tablet) needed for pain, 40 tabs, 0 Refill(s) Oral diazepam(diazePA 7 1-4 tabs, M 5 mg oral Oral, Daily, tablet) RX must last 30 days. 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 05/17/2016 Albert Ramos Final K21.9 Gastro-esophageal W reflux disease without esophagitis 05/17/2016 Albert Ramos Final N18.2 Chronic kidney W disease, stage 2 (mild) 05/17/2016 Albert Ramos Final N39.0 Urinary tract W infection, site not specified 05/17/2016 Albert Rmaos R60.9 Edema, unspecified W 05/17/2016 Albert Ramos Final R73.09 Other abnormal W glucose 05/17/2016 Albert Ramos 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 08/26/2016 Albert Ramos E66.9 Obesity, W unspecified 08/26/2016 Albert Ramos E78.5 Hyperlipidemia, W unspecified 08/26/2016 Albert Ramos F32.9 Major depressive W disorder, single episode, unspecified 08/26/2016 Albert Ramos 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 08/26/2016 Albert Ramos 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 08/26/2016 Albert Ramos I10 Essential (primary) W hypertension 08/26/2016 Albert Ramos K21.9 Gastro-esophageal W reflux disease without esophagitis 08/26/2016 Albert Ramos N18.2 Chronic kidney W disease, stage 2 (mild) 08/26/2016 Albret Ramos N39.0 Urinary tract W infection, site not specified 08/26/2016 Albert Ramos R73.09 Other abnormal W glucose 08/26/2016 Albert Ramos Final 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 09/13/2016 KIEL BAPTISTE, 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, MARIA E E bladder, 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 09/13/2016 KIEL BAPTISTE, R39.14 Feeling of KIEL BAPTISTE, MARIA E E incomplete bladder MARIA E E emptying 10/11/2016 KIEL BAPTISTE, 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, MARIA E E bladder, 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 11/15/2016 Luinstra, Albert Final E66.9 Obesity, W unspecified 11/15/2016 Albert Ramos Final F32.9 Major depressive W disorder, single episode, unspecified 11/15/2016 Albert Ramos Final 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 11/15/2016 Albert Ramos Final I10 Essential (primary) W hypertension 11/15/2016 Albert Ramos Final K21.9 Gastro-esophageal W reflux disease without esophagitis 11/15/2016 Albert Ramos Final N18.2 Chronic kidney W disease, stage 2 (mild) 11/15/2016 Albert Ramos Final N31.9 Neuromuscular W dysfunction of bladder, unspecified 11/15/2016 Albert Ramos Final R73.09 Other abnormal W glucose 11/15/2016 Albert Ramos Final 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 02/18/2017 Massimo Final N31.9 Neuromuscular Hillary M dysfunction of bladder, unspecified 02/18/2017 Massimo Final N39.0 Urinary tract Hillary M infection, site not specified 02/18/2017 Massimo Final Z48.02 Encounter for Hillary Rios removal of sutures 05/15/2017 Albert Ramos Final E66.9 Obesity, W unspecified 05/15/2017 Albert Ramos Final F32.9 Major depressive W disorder, single episode, unspecified 05/15/2017 Albert Ramos Final 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 05/15/2017 Albert Ramos Final G70.9 Myoneural disorder, W unspecified 05/15/2017 Albert Ramos Final I10 Essential (primary) W hypertension 05/15/2017 Albert Ramos Final N18.2 Chronic kidney W disease, stage 2 (mild) 05/15/2017 Albert Ramos Final R39.9 Unspecified W symptoms and signs involving the genitourinary system 05/15/2017 Albert Ramos Final R73.09 Other abnormal W glucose 05/15/2017 Albert Ramos Z79.890 Hormone replacement W therapy 05/15/2017 Albert Ramos Final Z87.19 Personal history of W other diseases of the digestive system Procedures Code Description [place] [address] Therapeutic, 12/13/2015 prophylactic, or diagnostic injection (specify substance or drug); subcutaneous or intramuscular Office or 12/13/2015 other outpatient visit for the evaluation and management of an established patient, which requires at least 2 of these 3 johns components: A detailed history; A detailed examination; Medical d [id number] Office or 05/17/2016 other outpatient visit for the evaluation and management of an established patient, which requires at least 2 of these 3 johns components: A detailed history; A detailed examination; Medical d [id number] Office or 08/26/2016 other outpatient visit for the evaluation and management of an established patient, which requires at least 2 of these 3 johns components: A detailed history; A detailed examination; Medical d 73629 OFFICE OR KIEL BAPTISTE, 09/13/2016 OTHER OUTPATIENT VISIT FOR MARIA E E THE EVALUATION AND MANAGEMENT OF ANEW [place] [address] OFFICE OR KIEL BAPTISTE, 10/09/2016 OTHER OUTPATIENT VISIT FOR MARIA E E THE EVALUATION AND MANAGEMENT OF ANEW [place] [address] OFFICE OR KIEL BAPTISTE, 10/11/2016 OTHER OUTPATIENT VISIT FOR MARIA E E THE EVALUATION AND MANAGEMENT OF ANESTABLISHED [place] R [address] OFFICE OR KIEL BAPTISTE, 11/06/2016 OTHER OUTPATIENT VISIT FOR MARIA E E THE EVALUATION AND MANAGEMENT OF ANESTABLISHED PAT[place], [place] R [address] Office or 11/15/2016 other outpatient visit for the evaluation and management of an established patient, which requires at least 2 of these 3 johns components: A detailed history; A detailed examination; Medical d [id number] Office or 02/18/2017 other outpatient visit for the evaluation and management of an established patient, which requires at least 2 of these 3 johns components: An expanded problem focused history; An expanded prob 37720 Immunization 05/15/2017 administration (includes percutaneous, intradermal, subcutaneous, or intramuscular injections); 1 vaccine (single or combination vaccine/toxoid).. 68942 Influenza 05/15/2017 virus vaccine, quadrivalent (IIV4), split virus, preservative free, when administered to individuals 3 years of age and older, for intramuscular use 55555 Office or 05/15/2017 other outpatient visit for the evaluation and management of an established patient, which requires at least 2 of these 3 johns components: A detailed history; A detailed examination; Medical d Results Test Result Range Urinalysis with reflex microscopic - 11/15/16 12:05 Appearance Cloudy NA Bilirubin Negative NA Negative Blood Negative NA Negative Color Yellow NA Glucose, Urine Negative Negative Ketones Negative Negative Leukocyte Esterase Pos 3+ NA Negative Nitrites Negative NA Negative pH 6.0 NA 5.0-8.0 Protein Negative Negative Specific Barnard 1.012 NA 1.003-1.030 UA Collection type Catheter NA Urobilinogen 0.2 mg/dL <1.0 Urine Microscopic - 11/15/16 12:05 Bacteria Numerous NA Epithelial Cells 10 /HPF RBC, Urine 0 /HPF 0-4 WBC, Urine >50 /HPF 0-4 Message for Lab - 11/15/16 12:54 Message for Lab Done NA CBC With Platelet and Differential - 11/15/16 13:45 Absolute Basophils 0.02 10*3/uL 0.00-0.20 Absolute Eosinophils 0.14 10*3/uL 0.00-0.50 Absolute Lymphocytes 2.08 10*3/uL 0.80-3.30 Absolute Monocytes 0.45 10*3/uL 0.30-1.00 Absolute Neutrophils 2.30 10*3/uL 1.90-7.00 Basophils 0 % 0-2 Eosinophils 3 % 0-4 HCT 37.4 % 37.0-47.0 HGB 11.9 g/dL 12.0-16.0 Immature Granulocytes 0.4 % 0.0-1.0 Lymphocytes 42 % 20-46 MCH 33.6 pg 27.0-32.0 MCHC 31.8 g/dL 32.0-36.0 MCV 105.6 fL 82.0-99.0 Monocytes 9 % 4-11 MPV 10.5 fL 8.8-14.8 Neutrophils 46 % 51-75 Platelet Count 216 K/uL 150-400 RBC 3.54 10*6/uL 4.00-5.20 RDW 15.5 % 11.5-14.5 WBC 5.0 K/uL 4.8-10.8 Comprehensive Metabolic Panel (CMP) - 11/15/16 13:45 Albumin 3.8 g/dL 3.4-4.8 Alkaline Phosphatase 61 U/L 40-150 ALT (SGPT) 9 U/L 0-55 Anion Gap 9 NA 3-20 AST (SGOT) 15 U/L 5-34 Bilirubin Total 0.4 mg/dL 0.2-1.2 BUN 18 mg/dL 10-20 Calcium 8.9 mg/dL 8.4-10.2 Chloride 105 mEq/L 99-111 CO2 28 mEq/L 22-31 Creatinine 1.10 mg/dL 0.57-1.11 Globulin 2.5 g/dL 1.8-4.0 Glucose 100 mg/dL 70-99 Potassium 4.2 mEq/L 3.5-5.2 Protein 6.3 g/dL 6.0-7.6 Sodium 142 mEq/L 135-144 eGFR - 11/15/16 13:45 eGFR 49 mL/min >60 TSH with Reflex Free T4 - 11/15/16 13:45 TSH with Reflex Free T4 0.65 uIU/mL 0.35-4.94 Urinalysis with reflex microscopic - 02/18/17 11:24 Appearance Cloudy NA Bilirubin Negative NA Negative Blood Pos 3+ NA Negative Color Yellow NA Glucose, Urine Negative NA Negative Ketones Negative NA Negative Leukocyte Esterase Pos 3+ NA Negative Nitrites Negative NA Negative pH 5.0 NA 5.0-8.0 Protein Trace NA Negative Specific Barnard 1.010 NA 1.003-1.030 UA Collection type Catheter NA Urobilinogen 0.2 mg/dL <=1.0 Urine Microscopic - 02/18/17 11:24 Bacteria Numerous NA Epithelial Cells 2 /hpf RBC, Urine >50 /hpf 0-2 WBC, Urine >50 /hpf 0-4 Urinalysis with reflex microscopic - 05/15/17 13:22 Appearance Turbid NA Bilirubin Negative NA Negative Blood Pos 1+ NA Negative Color Yellow NA Glucose, Urine Negative Negative Ketones Negative Negative Leukocyte Esterase Pos 3+ NA Negative Nitrites Negative NA Negative pH 6.5 NA 5.0-8.0 Protein Pos 1+ Negative Specific Barnard 1.014 NA 1.003-1.030 UA Collection type Catheter NA Urobilinogen 0.2 mg/dL <1.0 Urine Microscopic - 05/15/17 13:22 Bacteria Numerous NA Epithelial Cells 20 /HPF Microscop. Exam Perf. performed NA RBC, Urine 10 /HPF 0-4 Urine Mucus Present NA WBC, Urine >50 /HPF 0-4 Encounters ACCT No. Visit Discharge Status Pt. Type Provider Facility Loc./Unit Complaint Date/Time [id number] 09/24/2013 09/24/2013 C[facility] Out[facility] 13:07:00 23:59:59 nt [id number] 2013 2013 CLS Outpatie 09:59:00 23:59:59 nt [id number] 09/26/2016 09/26/2016 CLS Outpatie KIEL Friend LUIS 2610 13:15:00 23:59:59 nt , [facility] [id number] 05/15/2017 05/15/2017 DIS Outpatie Luinstra, [facility] FM 6 mo roxanna 6648 12:54:00 23:59:00 nt [facility] [id number] 02/18/2017 02/18/2017 DIS Outpatie [place], Via [facility] New ACC UTI and 5824 10:06:00 23:59:00 nt Hillary [facility] suture Clinic removal LFT KNEE [id number] 11/15/2016 11/15/2016 DIS Outpatie Luinstra, Via [facility] New TCPA, 6 mth 7420 12:49:00 23:59:00 nt Albert [facility] re[facility]k [facility] [id number] 08/26/2016 08/26/2016 DIS Outpatie Luinstra, Via [facility] New UTI 3760 14:47:00 23:59:00 nt [facility] [id number] 05/17/2016 05/17/2016 DIS Outpatie Luinstra, Via [facility] New FM TCPA 6 mo 6186 12:57:00 23:59:00 nt Albert [facility] [id number] 03/07/2016 03/07/2016 DIS Outpatie Luinstra, Via [facility] New FM stomach 1167 13:15:00 23:59:00 nt Albert [facility] issues and Clinic possible uti [id number] 12/13/2015 12/13/2015 DIS Outpatie Luinstra, Via [facility] New FM fever and 3553 16:17:00 23:59:00 nt Albert [facility] chills Clinic [id number] 11/16/2015 11/16/2015 DIS Outpatie Luinstra, Via [facility] New FM 60 day roxanna 8402 07:55:00 23:59:00 nt Albert Hwang [facility] [id number] 09/15/2015 09/15/2015 DIS Outpatie Luinstra, [facility] f2f 5548 10:40:00 23:59:00 nt Albert [facility] [id number] 08/22/2015 08/22/2015 CLS Outpatie Komarek, [facility] New IC UPPER CHEST 3071 18:09:00 23:59:59 nt Arian Lara [facility] [id number] 04/11/2015 04/11/2015 DIS Outpatie Kali, [facility] New EGD trouble 9629 13:07:00 23:59:00 nt Abelardo Rios [facility] [id number] 04/07/2015 04/07/2015 DIS Outpatie Luinstra, [facility] URINARY 0644 13:19:00 23:59:00 nt Albert Hwang [facility] URGENCY AND Clinic DISCUSS CYST ON THYROID AND VALIUM [id number] 07/13/2014 07/13/2014 DIS Outpatie Luinstra, [facility] FM Paperwork 5566 09:42:00 23:59:00 nt Albert Hwang [facility] [id number] 05/16/2017 Document [id number] 05:17:56 Registra tion [id number] 04/16/2017 Document [id number] 05:18:05 Registra tion [id number]/18/2017 Document [id number] 05:17:14 Registra tion [id number] 09/06/2015 Document 13:22:34 Registra tion [id number] 03/12/2017 Document [id number] 05:16:53 Registra tion [id number]/19/2017 Document [id number] 05:15:40 Registra tion [id number] 02/04/2017 Document [id number] 05:16:16 Registra tion [id number] 12/31/2016 Document [id number] 05:16:21 Registra tion 2016111611/16/2016 Document [id number] 05:15:50 Registra tion [id number] 10/26/2016 Document [id number] 05:17:15 Registra tion [id number] 08/27/2016 Document [id number] 05:16:03 Registra tion 2016062606/26/2016 Document [id number] 05:16:30 Registra tion 2016051808/2016 Document [id number] 05:17:12 Registra tion [id number] 03/27/2016 Document [id number] 05:17:03 Registra tion [id number] 03/08/2016 Document [id number] 05:16:59 Registra tion [id number] 02/06/2016 Document [id number] 05:17:27 Registra tion 2015121412/14/2015 Document [id number] 05:18:19 Registra tion 2015111711/17/2015 Document [id number] 05:16:22 Registra tion [id number] 10/03/2015 Document [id number] 05:17:43 Registra tion [id number] 08/23/2015 Document [id number] 05:16:44 Registra tion [id number] 07/04/2015 Document [id number] 05:17:49 Registra tion [id number] 05/31/2015 Document [id number] 14:27:18 Registra tion 2015053105/31/2015 Document [id number] 14:06:25 Registra tion 2015053105/31/2015 Document [id number] 13:52:02 Registra tion [id number] 05/31/2015 Document [id number] 13:44:25 Registra tion [id number] 05/31/2015 Document [id number] 13:36:54 Registra tion [id number] 05/31/2015 Document [id number] 13:05:28 Registra tion [id number] 05/31/2015 Document [id number] 12:37:19 Registra tion 2015053105/31/2015 Document [id number] 12:29:44 Registra tion 2015053105/31/2015 Document [id number] 11:48:34 Registra tion [id number] 05/31/2015 Document [id number] 11:42:13 Registra tion [id number] 05/31/2015 Document [id number] 11:28:09 Registra tion [id number] 05/31/2015 Document [id number] 11:21:59 Registra tion [id number] 05/31/2015 Document [id number] 11:02:34 Registra tion [id number] 05/31/2015 Document [id number] 10:56:03 Registra tion [id number] 05/31/2015 Document [id number] 10:45:15 Registra tion [id number] 05/31/2015 Document [id number] 10:32:36 Registra tion [id number] 05/31/2015 Document [id number] 10:27:17 Registra tion [id number] 05/31/2015 Document [id number] 10:16:44 Registra tion 2015053105/31/2015 Document [id number] 10:11:23 Registra tion [id number] 05/31/2015 Document [id number] 09:59:02 Registra tion [id number] 05/31/2015 Document [id number] 09:49:15 Registra tion 2015053105/31/2015 Document [id number] 09:37:58 Registra tion [id number] 05/31/2015 Document [id number] 09:32:42 Registra tion [id number] 05/31/2015 Document [id number] 09:14:48 Registra tion [id number] 05/31/2015 Document [id number] 09:10:07 Registra tion [id number] 11/19/2017 11/19/2017 DIS Outpatie [id number] 09:35:37 09:35:37 nt 342383 [id number] 11/19/2017 11/19/2017 DIS Outpatie [id number] 09:34:31 09:34:31 nt 412599 [id number] 11/19/2017 11/19/2017 DIS Outpatie [id number] 09:24:17 09:24:17 nt 400539 [id number] 11/19/2017 11/19/2017 ACT Outpatie [id number] 06:36:38 06:36:38 nt 891703 [id number] 11/19/2017 11/19/2017 ACT Outpatie [id number] 06:36:19 06:36:19 nt 610128 [id number] 11/19/2017 11/19/2017 ACT Outpatie [id number] 06:34:02 06:34:03 nt 681869 [id number] 11/19/2017 11/19/2017 ACT Outpatie [id number] 06:33:58 06:33:58 nt 446966 [id number] 11/17/2017 11/17/2017 DIS Outpatie [id number] 13:11:10 13:11:11 nt 535634 [id number] 11/17/2017 11/17/2017 DIS Outpatie [id number] 13:11:07 13:11:07 nt 676328 [id number] 11/17/2017 11/17/2017 DIS Outpatie 20171117 13:09:43 13:09:43 nt 459258 [id number] 11/17/2017 11/17/2017 DIS Outpatie 20171117 12:39:53 12:39:53 nt 228914 PEQ75694 11/17/2017 11/17/2017 DIS Outpatie 20171117 12:39:52 12:39:52 nt 107185 [id number] 11/07/2017 11/07/2017 DIS Outpatie [id number] 09:01:40 09:01:40 nt 067984 [id number] 09/08/2017 09/08/2017 CLS Outpatie [id number] 14:38:56 23:59:59 nt 748565 [id number] 05/13/2017 05/13/2017 CLS Outpatie 20170513 08:39:06 23:59:59 nt 612244 [id number] 05/12/2017 05/12/2017 CLS Outpatie 20170512 16:45:00 23:59:59 nt 742927 TTP14988 05/12/2017 05/12/2017 CLS Outpatie 20170512 16:23:06 23:59:59 nt 623412 GLZ30373 05/12/2017 05/12/2017 CLS Outpatie 20170512 15:15:35 23:59:59 nt 492135 RGX66730 05/12/2017 05/12/2017 CLS Outpatie 20170512 15:08:52 23:59:59 nt 589317 [id number] 05/12/2017 05/12/2017 CLS Outpatie 20170512 14:49:40 23:59:59 nt 045459 POQ84065 05/12/2017 05/12/2017 CLS Outpatie 20170512 14:49:26 23:59:59 nt [id number] [id number] 05/12/2017 05/12/2017 CLS Outpatie 20170512 14:41:10 23:59:59 nt 986023 KSG47062 11/15/2016 11/15/2016 CLS Outpatie 20161115 07:56:47 23:59:59 nt 143558 [id number] 11/15/2016 11/15/2016 CLS Outpatie 20161115 07:56:28 23:59:59 nt 720504 SMO63715 11/14/2016 11/14/2016 CLS Outpatie 20161114 16:39:29 23:59:59 nt 123224 [id number] 11/14/2016 11/14/2016 CLS Outpatie 20161114 16:18:10 23:59:59 nt 301797 TFH15265 11/14/2016 11/14/2016 CLS Outpatie 20161114 15:00:10 23:59:59 nt 251352 SMU10629 11/14/2016 11/14/2016 CLS Outpatie 20161114 14:59:12 23:59:59 nt 114506 [id number] 10/21/2016 10/21/2016 DIS Outpatie 20161021 09:04:29 09:04:29 nt 178341 [id number] 10/21/2016 10/21/2016 DIS Outpatie 20161021 09:04:28 09:04:29 nt 678579 [id number] 10/18/2016 10/18/2016 CLS Outpatie [id number] 12:30:25 23:59:59 nt 292623 SNH18976 10/18/2016 10/18/2016 DIS Outpatie [id number] 10:56:16 10:56:16 nt 857335 CPT27671 10/18/2016 10/18/2016 DIS Outpatie [id number] 10:53:17 10:53:17 nt 235064 [id number] 10/18/2016 10/18/2016 DIS Outpatie [id number] 10:51:49 10:51:49 nt 790447 HUL58821 10/18/2016 10/18/2016 DIS Outpatie [id number] 10:13:11 10:13:11 nt 780060 LPV52941 10/18/2016 10/18/2016 DIS Outpatie [id number] 10:13:10 10:13:10 nt 437915 JZI74329 10/18/2016 10/18/2016 DIS Outpatie [id number] 10:12:57 10:12:57 nt 962525 TEG04995 10/18/2016 10/18/2016 DIS Outpatie [id number] 10:11:42 10:11:42 nt 294958 GJV51960 10/10/2016 10/10/2016 DIS Outpatie [id number] 12:18:45 12:18:45 nt 479836 UFW70130 10/10/2016 10/10/2016 DIS Outpatie [id number] 12:17:18 12:17:18 nt 328506 QDE11190 10/10/2016 10/10/2016 DIS Outpatie [id number] 11:43:02 11:43:02 nt 508147 EXF24286 09/02/2016 09/02/2016 DIS Outpatie [id number] 09:44:29 09:44:29 nt 427434 [id number] 08/30/2016 08/30/2016 CLS Outpatie [id number] 16:31:13 23:59:59 nt 935735 MEF39670 08/30/2016 08/30/2016 CLS Outpatie [id number] 10:11:34 23:59:59 nt 164958 ODV30977 08/30/2016 08/30/2016 CLS Outpatie [id number] 10:05:14 23:59:59 nt 959243 [id number] 08/30/2016 08/30/2016 CLS Outpatie [id number] 09:25:22 23:59:59 nt 024397 [id number] 08/30/2016 08/30/2016 CLS Outpatie [id number] 09:25:07 23:59:59 nt 334528 DEY01525 08/30/2016 08/30/2016 CLS Outpatie [id number] 09:23:55 23:59:59 nt 192912 [id number] 08/30/2016 08/30/2016 CLS Outpatie [id number] 09:23:39 23:59:59 nt 092960 [id number] 08/30/2016 08/30/2016 CLS Outpatie [id number] 09:10:46 23:59:59 nt 911038 DSS08472 08/30/2016 08/30/2016 CLS Outpatie [id number] 09:09:19 23:59:59 nt 713775 SQW19252 08/30/2016 08/30/2016 CLS Outpatie [id number] 09:09:18 23:59:59 nt 460877 XGP72096 08/30/2016 08/30/2016 CLS Outpatie [id number] 09:09:04 23:59:59 nt 044547 ZNT40798 08/30/2016 08/30/2016 CLS Outpatie [id number] 09:07:54 23:59:59 nt 604878 [id number] 08/30/2016 08/30/2016 CLS Outpatie [id number] 09:07:39 23:59:59 nt 220482 MKJ77381 08/30/2016 08/30/2016 CLS Outpatie [id number] 09:06:28 23:59:59 nt 868327 SBF50472 05/17/2016 05/17/2016 DIS Outpatie [id number] 13:47:54 13:47:54 nt 358766 AKS39125 05/17/2016 05/17/2016 DIS Outpatie [id number] 13:47:53 13:47:53 nt 147527 [id number] 05/17/2016 05/17/2016 DIS Outpatie [id number] 13:47:38 13:47:38 nt 452376 [id number] 05/17/2016 05/17/2016 DIS Outpatie [id number] 13:47:37 13:47:37 nt 763782 BQY45125 05/17/2016 05/17/2016 DIS Outpatie [id number] 13:46:12 13:46:12 nt 670677 SPP55977 05/17/2016 05/17/2016 DIS Outpatie [id number] 13:46:11 13:46:11 nt 637161 PJZ18691 05/17/2016 05/17/2016 DIS Outpatie [id number] 13:46:10 13:46:10 nt 410868 LKH61153 05/17/2016 05/17/2016 DIS Outpatie [id number] 13:46:09 13:46:09 nt 449743 ICR33412 05/17/2016 05/17/2016 DIS Outpatie 20160517 13:46:08 13:46:08 nt 926768 KSS28430 05/17/2016 05/17/2016 DIS Outpatie 20160517 13:46:07 13:46:07 nt 689863 MOC66757 05/17/2016 05/17/2016 DIS Outpatie 20160517 13:46:05 13:46:06 nt 603513 [id number] 05/17/2016 05/17/2016 DIS Outpatie 20160517 13:43:47 13:43:47 nt 538965 SVY10400 05/17/2016 05/17/2016 DIS Outpatie 20160517 13:43:44 13:43:45 nt 309356 TWH53494 05/17/2016 05/17/2016 DIS Outpatie 20160517 13:43:41 13:43:42 nt 634688 ACJ57405 05/17/2016 05/17/2016 DIS Outpatie 20160517 13:43:35 13:43:36 nt 714638 [id number] 11/19/2017 Document [id number] 09:15:01 Registra 087142 tion HLC23651 11/18/2017 Document [id number] 14:40:00 Registra 1440 tion [id number] 11/18/2017 DIS Outpatie 20171118 13:15:40 nt 151187 IZC19385 05/13/2017 Document [id number] 11:51:09 Registra 709503 tion [id number] 05/12/2017 Document [id number] 19:35:42 Registra 756775 tion [id number] 05/12/2017 Document [id number] 15:08:00 Registra 1508 tion [id number] 11/18/2016 Document [id number] 16:57:03 Registra 631981 tion TBJ54623 11/18/2016 Document [id number] 08:55:15 Registra 921830 tion IQW36411 11/14/2016 Document [id number] 15:07:00 Registra 1507 tion [id number] 10/19/2016 Document [id number] 06:34:06 Registra 029835 tion [id number] 10/18/2016 Document [id number] 12:15:24 Registra 983119 tion [id number] 10/18/2016 Document [id number] 10:17:00 Registra 1017 tion [id number] 08/30/2016 Document [id number] 09:14:00 Registra 0914 tion [id number] 11/15/2016 11/15/2016 CHANTEL DYSON 19:52:12 23:59:59 nt MARIA E BAPTISTE
--- OUTSIDE RECORDS SUMMARY | 2017-11-20 17:18 | External Medical Summary | Referral Summary ---
:1950 Author Organization [facility] Address [address] [place] [address] [place] [id number] Care Team Providers Name Role Phone Albert Ramos Primary Care Physician Encounter VC Date(s): 05/03/15 - 05/03/15 [facility], [address] [place] [address] [place] Discharge Disposition: 01-Home or Self Care Attending Physician: Abelardo Bass MD Admitting Physician: Abelardo Bass MD Vital Signs No data available for this section Problem List Condition Effective Dates Status Health [...] # 18 g, 0 Refill(s), Pharmacy : [facility] [id number] Start Date: 08/22/15 Status: Orderedaspirin 325 mg, Oral, Daily, 0 Refill(s) Start Date: 02/08/14 Status: Orderedbaclofen See Instructions, 177 mg per 24 hours per pump, 0 Refill(s) Start Date: 07/13/14 Status: OrderedDaypro 600 mg oral tablet See Instructions, 1 TABS ORAL BID,X90 DAYS, # 180 tabs, eRx: [facility] [id number], 1 TABS ORALBID,X90 DAYS Start Date: 07/24/15 Status: Ordereddiazepam 5 mg oral tablet 1-4 tabs, Oral, Daily, Must last 30 days. [facility] Due to be filled., # 60 tabs, 0 Refill(s) Start Date: 10/30/15 Status: OrderedNorco 5 mg-325 mg oral tablet 1-2 tabs, Oral, TID, as needed for pain, # 40 tabs, 0 Refill(s) Start Date: 04/07/15 Status: Orderedomeprazole Oral, Daily, 0 Refill(s) Start Date: 08/22/15 Status: OrderedZestril 10 mg oral tablet See Instructions, 1 TABS ORAL BEDTIME (ONCE A DAY),X90 DAYS, # 90 tabs, eRx: [facility] [id number], 1 TABS ORAL BEDTIME (ONCE A DAY),X90 DAYS Start Date: 10/23/15 Status: OrderedZoloft 50 mg oral tablet See Instructions, 1 TABS ORAL DAILY,X90 DAYS, # 90 tabs, 1 Refill(s), eRx: [facility] [id number], 1 TABS ORAL DAILY,X90 DAYS Start Date: [...] Procedures Procedure Date Related Diagnosis Body Site Colonoscopy, flexible; diagnostic, including 05/03/15 collection of specimen(s) by brushing or washing, when performed (separate procedure) COLORECTAL CANCER SCREENING; COLONOSCOPY ON 05/03/15 INDIVIDUAL NOT MEETING CRITERIA FOR HIGH RISK1 Esophagogastroduodenoscopy and biopsy2 05/03/15 Esophagogastroduodenoscopy, flexible, transoral; 05/03/15 with biopsy, single or multiple Esophagogastroduodenoscopy, flexible, transoral; 05/03/15 with transendoscopic balloon dilation of esophagus (less than 30 mm diameter). Cholecystectomy Surgery - baclofen pump replacement Surgery - left ring finger tendon repair 1Diverticulosis, repeat in 10 [id number] dilatation to 54 [place] of the distal esophagus. Gastric ulcer, pathology indicating reactive gastropathy. Schatzki' s ring. Hiatal hernia. Negative for Hooks's, negative for H. pylori. Social History Social History Type Response Smoking Status Never smoker Assessment and Plan No data available for this section
[2017-11-20] MEDS: SALINE FLUSH 10ml SYRINGE IVF PRN (17:26)
[2017-11-20] MEDS ORDERED: CEFTRIAXONE (ER USE ONLY) 1 GM in NS 100 ML IV ONE (20:00)
[2017-11-20 21:14] VITALS: BMI 35.6
[2017-11-20] MEDS ORDERED: ACETAMINOPHEN 650 MG SUPPOSITORY PR PRN (21:30)
[2017-11-20] MEDS ORDERED: ONDANSETRON 4 MG/2 ML INJECTION IVP PRN (21:30)
[2017-11-20] MEDS ORDERED: SALINE FLUSH 10ml SYRINGE IV PRN (21:30)
[2017-11-20] MEDS ORDERED: MORPHINE SULFATE 4mg INJECTION IVP PRN (21:30)
[2017-11-20] MEDS: NS 1,000 ML IV SCH (21:42)
[2017-11-20] MEDS: DIAZEPAM 5 MG TABLET PO SCH (21:50)
--- NOTE | 2017-11-20 21:54 | History & Physical Report ---
History of Present Illness Date: 11/21/17 Chief complaint: abdomen pain HPI: This is a 67 y/o female who has a history of Hereditary spastic paraplegia. The patient has to self cath herself. The patient's symptom started Friday night. She had blood in her diaper. c/w previous UTI's. She has a Rx of Bactrim at home and she started. The patient continued to have diarrhea with 3 stools /day. no blood in her stools. The patient this past Friday did go to [place] to get her Baclofen pump refilled. The patient still felt bad. The patient had increasing lower abdomen pain and presents to the ED for evaluation. CT of the abdomen does not demonstrate acute process except for cystitis. The patient will be admitted to tx recurrent UTI. The pateint has acute kidney damage most likely from dehydration, bactrim and HAILEE inhibitor. Review of Systems Review of systems: no headache, no change in vision, no fever, has had chills and sweats, no uri sx , no cough, no congestion, no neck pain, no chest pain, no cough, nausea without emesis, diarrhea as noted above. low abdomen pain, continued spasm to her lower extremity, managed with baclofen pump. no skin rashes, no skin breakdown. 12 point ROS otherwise negative except for outlined above. 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 Current residence: Apartment/Private Home Medications Home Medications Medication Instructions Recorded Confirmed Type Aspirin [Ecotrin] 81 mg PO DAILY 11/20/17 11/20/17 History Baclofen Pump 1 dose INJ DAILY 11/20/17 11/20/17 History Diazepam [Valium] 5 mg PO HS 11/20/17 11/20/17 History Estradiol Vag Cream [Estrace Vag 1 applicatio TOP DAILY 11/20/17 11/20/17 History Cream] Hydrocodone/APAP 5/325 [[place] 1 - 2 tab PO TID PRN 11/20/17 11/20/17 History 5/325] Lisinopril [Prinivil] 10 mg PO HS 11/20/17 11/20/17 History Omeprazole [Omeprazole] 40 mg PO DAILY 11/20/17 11/20/17 History Oxaprozin [Daypro] 600 mg PO BID 11/20/17 11/20/17 History Sertraline [Zoloft] 200 mg PO DAILY 11/20/17 11/20/17 History Sulfamethox/Tmp Ds *Ed Prepack 1 tab PO BID 11/20/17 11/20/17 History [Bactrim Ds 800/160 *Ed Prepack*] Allergies Allergy/AdvReac Type Severity Reaction Status Date / Time tolterodine [From Detrol] AdvReac Intermediate Nausea Verified 11/20/17 16:25 ciprofloxacin AdvReac Unknown EXTREME Verified 11/20/17 16:32 WEAKNESS AND NAUSEA levofloxacin AdvReac Unknown EXTREME Verified 11/20/17 16:32 NAUSEA Exam Vital Signs: Temperature 97.5 F 11/20/17 21:13 Pulse Rate 72 11/20/17 21:13 Respiratory Rate 16 11/20/17 21:13 Blood Pressure 142/62 H 11/20/17 21:13 Pulse Oximetry 96 11/20/17 21:13 Telemetry Rhythm: Sinus Rhythm Height/Weight/BMI: Height 1.57 m Weight 88.4 kg Body Mass Index 35.6 - Constitutional Present: mild distress - Routine HEENT Exam Head: Present: normocephalic, atraumatic Eye: Present: EOMI, PERRL - Routine Neck Exam Present: supple, full ROM - Routine Respiratory Exam Present: CTA bilaterally - Routine Cardiovascular Exam Present: RRR, no murmur - Routine Abdominal Exam Present: soft, normoactive bowel sounds, non distended Comments: mild tender to palpation per nursig. - Routine Extremities Exam Comments: essentially flaccid. no evidence of spasticity currently, no edema, mild obese. - Routine Skin Exam Present: intact, dry - Routine Neurological Exam Present: alert, oriented X3, CN II-XII intact - Routine Psychiatric Exam Present: normal affect, normal thought process Results - Labs CBC & Chem 7: 11/21/17 04:31 11/21/17 04:31 Labs: results reviewed and will be discussed below pCXR without acute process. Assessment and Plan (1) UTI (urinary tract infection) Current visit: Yes Status: Acute (2) KALI (acute kidney injury) Current visit: Yes Status: Acute (3) Dehydration Current visit: Yes Status: Acute (4) Hyperkalemia Current visit: Yes Status: Acute (5) Hypertension Current visit: Yes Status: Acute (6) GERD (gastroesophageal reflux disease) Current visit: Yes Status: Acute (7) Spastic paraplegia Current visit: Yes Status: Acute Assessment and Plan: 1. UtI acute POA: ivf, rocephin, adjust for cultures. CT demonstrates this without additional peritoneal findings 2. acute renal failure POA: multifactorial. diarrhea ppt dehydration. patient started bactrim on Friday. resulted in acute renal injury. hold HAILEE. ivf, stop bactrim, repeat renal panel in am. should resolve easily 3. hyperkalemia acute POA: related to acute renal failure with HAILEE inhibitor. fluids, kayexylate and repeat labs in the am. 4. HTN chronic POA: hold HAILEE tonight. monitor blood pressure, adjust as indicated 5. spastic paraplegia chronic POA: baclofen pump, recent change. stable, no skin issues 6. GERD chronic POA: PPI 7. DVT ppx; SCD, lovenox DVT Prophylaxis: SCD's, Lovenox GI Prophylaxis: Protonix Resuscitation Status: Full Code - Time spent with patient Time with patient PN: 30 minutes - Physician Narrative Physician: Josey Arias MD Narrative: Date: 11/21/17 Time: 1425 Please see supplemental note dictated 11/21. Hospital Course Summary Disclaimer: The visit summary below is not to be considered part of the above Progress Note.
[2017-11-20] MEDS ORDERED: SODIUM POLYSTYRENE SULFONATE 15 GM/60 ML BOTTLE PO ONE (22:06)
[2017-11-20] MEDS ORDERED: CEFTRIAXONE 1 G in NS 100 ML IV SCH (22:15)
[2017-11-21] MEDS ORDERED: SODIUM POLYSTYRENE SULFONATE 15 GM/60 ML BOTTLE PO ONE (06:15)
--- NOTE | 2017-11-21 07:53 | CT Scan Report ---
Indication: L Lower abd pain CT abdomen pelvis wo con: Comparison: None Technique: Patient scanned from above the diaphragm to below the pubic symphysis without intravenous contrast utilizing dose reduction imaging technology and reformatted sagittal and coronal image planes. Findings: Heart size and lung bases are unremarkable. Patient did show a small sliding-type hiatal hernia. Spleen, liver, biliary tree, pancreas and adrenals are unremarkable. Gallbladder appears to be previously removed. Right kidney showed any obstructive uropathy. There are some calcifications identified which may be vascular. Retroperitoneum showed no acute findings. Visualized bowel shows no obstruction or acute inflammatory change. Mild diverticular changes are identified in the distal descending and sigmoid region. Bladder contour is unremarkable. No free air or free fluid seen. No acute pelvic organ abnormality appreciated. Reformatted sagittal imaging showed degenerative changes at the L4-5 and L5-S1 lumbar disc spaces Impression: 1. Patient showed no acute upper abdominal abnormality. 2. No obstruction to bowel or kidneys. 3. Mild diverticulosis although, no suggestion of acute diverticulitis. 4. Findings indicated to ordering clinician by the V rad service on a callback basis. .
[2017-11-21] MEDS ORDERED: PANTOPRAZOLE 40 MG INJECTION IVP SCH (09:00)
[2017-11-21] MEDS: NS 1,000 ML IV SCH ×3 (09:51→20:27)
[2017-11-21] MEDS: ASPIRIN *EC* 81 MG TABLET PO SCH (09:52)
[2017-11-21] MEDS: ENOXAPARIN 40 MG/0.4 ML INJECTION SQ SCH (09:52)
[2017-11-21] MEDS: POLYETHYL GLYCOL 3350 17gm PACKET PO SCH (09:53)
[2017-11-21] MEDS: SERTRALINE 100 MG TABLET PO SCH (11:03)
--- NOTE | 2017-11-21 14:59 | History & Physical Report ---
- History and Physical History and Physical: Dr. Gallagher's note reviewed. This is working seen interviewed and examined. CC: Abdominal pain HPI: Mrs. Farris is a 67 y/o female who has a history of Hereditary spastic paraplegia with neurogenic bladder. She previously self catheterized but his discontinued doing so opting to use adult diapers. She describes chronic urinary incontinence and suspect she has overflow incontinence. She has frequent urinary tract infections with primary symptom development of hematuria ; she denies bladder spasm or dysuria associated with UTIs. The patient's current symptom started Friday night when she noted blood in her diaper c/w previous UTI's. She self initiated Bactrim at home. At roughly the same time the patient developed diarrhea with 3 liquid stools/day without blood in stools or melena. She has chronic irritable bowel syndrome and initially didn't think anything of the diarrhea until she developed abdominal pain and cramping yesterday prompting her to contact Dr. Ramos and subsequently be seen in the ER. She denied fevers, chills, or sweats; she's had no nausea or vomiting. During ER evaluation she had CT of the abdomen does not demonstrate acute process; pyuria on UA, and acute kidney disease on screening lab work. Subsequently hospitalized for management. PH/SH/FH: agree with that recorded last night by Dr. Gallagher with additional history of CKD stage II with last known creatinine 1.1 on 11/15/16, depression, GERD, hypertension, neurogenic bladder. Family history positive for mother and father having coronary disease, mother and sister with diabetes, and one son who underwent renal transplant for interstitial nephritis. The patient has a DO NOT RESUSCITATE order and reports her is her alternate decision maker. ROS: As previously dictated by Dr. Gallagher; the patient had her Baclofen pump refilled several days ago and [place]; non-ambulatory for the past 6 months having previously been able to pivot transfer. EXAM: General-NAD, alert, fluent speech; 97.8, 71, 18, 133/61, 96% room air HEENT-PERRL, EOMI without nystagmus, conjunctiva clear, sclera anicteric, conjugate gaze, facial structures symmetric, oropharynx clear, neck supple and without adenopathy Lungs-respirations nonlabored, good airflow, breath sounds clear Cardiac-regular rhythm, S1-S2 Abd-obese, soft, nontender, diminished bowel sounds; no suprapubic tenderness and bladder nonpalpable Ext-trace edema bilateral lower extremities Skin-generalized pallor Neuro-cranial nerves 3-12 intact, sensation intact to light touch 4 extremities , motor tone normal with symmetric power in the upper extremities and education director graded 4/5, wiggles toes in the lower extremities Psych-flat affect, calm, cooperative DATA: WBC 6.8, hemoglobin 11.3, MCV 102.8; sodium 145, bicarbonate 20, creatinine 2.6-2.1, BUN 45-36, potassium 5.2-4.8, liver enzymes normal Urinalysis with TNTC WBC, positive nitrite, +3 leukocyte esterase trace ketones , +3 equal blood, 3-5 RBC, +4 bacteria Fecal panel positive for C. difficile toxin CT abdomen/pelvis reviewed by myself demonstrating some metallic artifact in the right lower quadrant due to baclofen pump, bowel loops are unremarkable, moderate bladder distention; radiology reports incidental diverticulosis A/P: Recurrent UTIs Acute renal failure-baseline creatinine 1.1 Diarrhea C. difficile colitis Hyperkalemia, improving Dehydration Neurogenic bladder Hereditary spastic paraplegia DJD IBS Patient presents with urinary symptoms, abdominal pain and diarrhea in conjunction with acute renal failure after initiation of Bactrim; urinalysis grossly abnormal but the patient has been afebrile and CT abdomen and pelvis unremarkable. C. difficile PCR positive-patient at high risk for C. difficile given recurrent antibiotic courses however no evidence of colitis on CT and WBC is normal. Treatment initiated with oral vancomycin and will confirm finding with C. difficile toxin. Continue treatment for UTI with ceftriaxone. I am concerned that the patient has a neurogenic bladder which is being inadequately drained as she has ceased straight cathetering at home and discussed follow-up urology evaluation with the patient. She is interested in a Bender catheter suprapubic catheter but reports her per past urologist was not open to consideration of either. Will arrange urology follow-up at discharge or urology consultation if patient remains in hospital early next week. Acute renal failure due to combination of dehydration, Bactrim use, and HAILEE inhibitor. Bactrim discontinued, lisinopril on hold. Hyperkalemia improved with hydration and with discontinuation of Bactrim. Patient describes significant decline in functional status over the past 6-9 months and will benefit from physical therapy. She reports outpatient therapy was being coordinated but in the past attempts to increase activity aggravated underlying degenerative changes in her knees and were not well tolerated.
[2017-11-21] MEDS: VANCOMYCIN 250mg/5ml ORAL LIQ PO SCH ×2 (18:19→21:38)
[2017-11-21] MEDS: OXAPROZIN 600 MG PO SCH (21:38)
[2017-11-21] MEDS: CEFTRIAXONE 1 G in NS 100 ML IV SCH (21:39)
[2017-11-21] MEDS: DIAZEPAM 5 MG TABLET PO SCH (21:39)
[2017-11-21] MEDS: HYDROCODONE/APAP 5mg/325mg TABLET PO PRN (21:40)
[2017-11-22] MEDS: NS 1,000 ML IV SCH ×3 (03:30→21:34)
[2017-11-22] MEDS: VANCOMYCIN 250mg/5ml ORAL LIQ PO SCH ×4 (05:11→21:35)
[2017-11-22] MEDS: OMEPRAZOLE 20 MG CAPSULE PO SCH (06:43)
[2017-11-22] MEDS: POLYETHYL GLYCOL 3350 17gm PACKET PO SCH (09:46)
[2017-11-22] MEDS: ENOXAPARIN 40 MG/0.4 ML INJECTION SQ SCH (09:47)
[2017-11-22] MEDS: ASPIRIN *EC* 81 MG TABLET PO SCH (09:47)
[2017-11-22] MEDS: SERTRALINE 100 MG TABLET PO SCH (09:47)
--- NOTE | 2017-11-22 14:27 | Progress Note ---
- Date 11/22/17 Subjective: Patient seen sitting in bed after lunch. She reports she is feeling better. Last diarrheal stool was last night. She still feels very bloated and is passing a lot of gas. No fever or chills. Other than arthritis pain in her knees last night, no other complaints. She is eating well. Objective Vital signs: Temperature 98.5 F 11/22/17 12:00 Pulse Rate 68 11/22/17 12:00 Respiratory Rate 16 11/22/17 12:00 Blood Pressure 119/57 11/22/17 12:00 Pulse Oximetry 95 11/22/17 12:00 Height/Weight/BMI: Height 1.57 m Weight 90.2 kg Body Mass Index 35.6 - Constitutional Present: no acute distress, well nourished, well developed - Routine HEENT Exam Head: Present: normocephalic, atraumatic - Routine Respiratory Exam Present: CTA bilaterally. Absent: wheezes - Routine Cardiovascular Exam Present: RRR, no murmur - Routine Abdominal Exam Present: soft, normoactive bowel sounds, tenderness (lower abdomen) - Routine Extremities Exam Present: edema (tr), normal capillary refill - Routine Skin Exam Present: dry, warm - Routine Neurological Exam Present: alert, oriented X3 - Routine Lymphatic Exam Lymphatic: Absent: adenopathy - Routine Psychiatric Exam Present: normal affect, cooperative Results - Labs CBC & Chem 7: 11/22/17 04:39 11/22/17 04:39 Assessment and Plan (1) UTI (urinary tract infection) Current visit: Yes Status: Acute (2) KALI (acute kidney injury) Current visit: Yes Status: Acute (3) Dehydration Current visit: Yes Status: Acute (4) C. difficile colitis Current visit: Yes Status: Acute Assessment and Plan: Assessment Recurrent UTIs Acute renal failure-baseline creatinine 1.1 Diarrhea C. difficile colitis Hyperkalemia, improving Dehydration Neurogenic bladder Hereditary spastic paraplegia DJD IBS Hypomagnesemia-11/22/17 Plan Patient improving. Continue Rocephin for UTI until sensitivities are resulted. Today is Day #2 of Rocephin. Continue oral vancomycin for c diff. Arrange urology f-u at discharge to discuss opts for her neurogenic bladder/ recurrent UTI given that she has chosen to no longer self cath. Creatinine improving 2.6-->2.1-->1.5. Lisinopril remains on hold. Patient hasn't been receiving oxaprozin for her knee arthritis as it is NF. She plans to have her family bring it tomorrow. If renal function continues to improve, should be ok to resume this. DVT Prophylaxis: SCD's GI Prophylaxis: other (omeprazole) Resuscitation Status: Do Not Resuscitate - Physician Narrative Physician: Josey Arias MD Narrative: Date: 11/22/17 Time: 1520 I have independently evaluated and examined this patient. I reviewed the chart, the patient's history, and the CHIEF HYDROELECTRIC STATION OPERATOR/PA's documented findings as above. We discussed and formulated the assessment and plan as above with additions as below: Josh reports feeling significantly better today. Abdominal pain has virtually resolved as has diarrhea; she denied fever or dyspnea. She is unsure if there is any ongoing hematuria but she denied bladder spasm. Patient is alert and cooperative, speech is fluent, abdomen is soft and nontender. Magnesium depressed at 1.4 today, white count remains normal Urine culture with 2 gram-negative rods not yet identified, both with colony counts of > 100,000 Continue current plan of care, replace magnesium IV. Bladder scans to be checked to determine if patient has overflow incontinence. Hospital Course Summary Disclaimer: The visit summary below is not to be considered part of the above Progress Note. Hospital Course: 11/20/17 Patient presents with urinary symptoms, abdominal pain and diarrhea in conjunction with acute renal failure after initiation of Bactrim; urinalysis grossly abnormal but the patient has been afebrile and CT abdomen and pelvis unremarkable. C. difficile PCR positive-patient at high risk for C. difficile given recurrent antibiotic courses however no evidence of colitis on CT and WBC is normal. Treatment initiated with oral vancomycin and will confirm finding with C. difficile toxin. Continue treatment for UTI with ceftriaxone. I am concerned that the patient has a neurogenic bladder which is being inadequately drained as she has ceased straight cathetering at home and discussed follow-up urology evaluation with the patient. She is interested in a Bender catheter suprapubic catheter but reports her per past urologist was not open to consideration of either. Will arrange urology follow-up at discharge or urology consultation if patient remains in hospital early next week. Acute renal failure due to combination of dehydration, Bactrim use, and HAILEE inhibitor. Bactrim discontinued, lisinopril on hold. Hyperkalemia improved with hydration and with discontinuation of Bactrim. Patient describes significant decline in functional status over the past 6-9 months and will benefit from physical therapy. She reports outpatient therapy was being coordinated but in the past attempts to increase activity aggravated underlying degenerative changes in her knees and were not well tolerated. 11/21/17 Patient improving. Continue Rocephin for UTI until sensitivities are resulted. Today is Day #2 of Rocephin. Continue oral vancomycin for c diff. Creatinine improving 2.6-->2.1-->1.5. Lisinopril remains on hold. Patient hasn't been receiving oxaprozin for her knee arthritis as it is NF. She plans to have her family bring it tomorrow. If renal function continues to improve, should be ok to resume this.
[2017-11-22] MEDS: MAGNESIUM SULFATE 1gm PREMIX 1 GM/100 ML BAG IV SCH ×2 (16:16→17:29)
[2017-11-22] MEDS: DIAZEPAM 5 MG TABLET PO SCH (21:34)
[2017-11-22] MEDS: CEFTRIAXONE 1 G in NS 100 ML IV SCH (21:35)
[2017-11-22] MEDS ORDERED: FALL RISK - PHARMACY CONSULT MC ONE (21:54)
[2017-11-22] MEDS: OXAPROZIN 600 MG PO SCH ×3 (22:15→22:46)
[2017-11-23] MEDS: VANCOMYCIN 250mg/5ml ORAL LIQ PO SCH ×4 (04:11→21:53)
[2017-11-23] MEDS: OMEPRAZOLE 20 MG CAPSULE PO SCH (06:05)
[2017-11-23] MEDS: ASPIRIN *EC* 81 MG TABLET PO SCH (09:36)
[2017-11-23] MEDS: NS 1,000 ML IV SCH ×2 (09:36→11:25)
[2017-11-23] MEDS: ENOXAPARIN 40 MG/0.4 ML INJECTION SQ SCH (09:37)
[2017-11-23] MEDS: OXAPROZIN 600 MG PO SCH ×2 (09:38→21:56)
--- NOTE | 2017-11-23 10:16 | Progress Note ---
- Date 11/23/17 Subjective: Josh is seen today in follow up. She is feeling fairly well. Reports no BM since yesterday. No abdominal pain, fever, N/V, etc. Overall, states she is feeling better and has no c/o. Objective Vital signs: Temperature 98.6 F 11/23/17 08:19 Pulse Rate 73 11/23/17 08:19 Respiratory Rate 14 11/23/17 08:19 Blood Pressure 150/68 H 11/23/17 08:19 Pulse Oximetry 96 11/23/17 08:19 Height/Weight/BMI: Height 1.57 m Weight 91.7 kg Body Mass Index 35.6 - Constitutional Present: no acute distress, well nourished, well developed, cooperative - Routine HEENT Exam Head: Present: normocephalic, atraumatic Eye: Present: EOMI, PERRL, normal accommodation ENT: Present: mucous membranes moist - Routine Respiratory Exam Present: CTA bilaterally. Absent: rales, rhonchi, crackles - Routine Cardiovascular Exam Present: RRR, S1, S2, no murmur - Routine Abdominal Exam Present: soft, normoactive bowel sounds, non distended, non tender - Routine Extremities Exam Present: no edema, non tender - Routine Musculoskeletal Exam Musculoskeletal: Present: no clubbing or cyanosis, normal strength, moving extremities well - Routine Skin Exam Present: intact, dry, warm - Routine Neurological Exam Present: alert, oriented X3, moving all extremities - Routine Psychiatric Exam Present: normal affect, normal thought process, cooperative Results - Labs CBC & Chem 7: 11/23/17 04:04 11/23/17 04:04 Microbiology Results: Microbiology 11/20/17 17:14 Urine, Voided (Cc/notcc) Urine Culture - Preliminary Gram Negative [place] Escherichia coli Assessment and Plan (1) UTI (urinary tract infection) Current visit: Yes Status: Acute (2) KALI (acute kidney injury) Current visit: Yes Status: Acute (3) Dehydration Current visit: Yes Status: Acute (4) C. difficile colitis Current visit: Yes Status: Acute Assessment and Plan: Assessment Recurrent UTIs Acute renal failure-baseline creatinine 1.1 Diarrhea C. difficile colitis Hyperkalemia, improving Dehydration Neurogenic bladder Hereditary spastic paraplegia (Baclofen Pump) DJD IBS Hypomagnesemia-11/22/17 Plan 11/23/17 Preliminary sensitivities reviewed- Continue Ceftriaxone for now. Urology referral as outpatient due to neurogenic bladder. 2nd Gm negative pending identification. C. Diff infection is asx right now- continue PO Vanco. SCr is back to baseline now- should be ok to resume home medications. HGB is now stable. Magnesium is replace, normalized. Overall, doing well. Home soon? Lives at home with family. DVT Prophylaxis: Lovenox GI Prophylaxis: other (PPI) Resuscitation Status: Do Not Resuscitate - Physician Narrative Physician: Josey Arias MD Narrative: Date: 11/23/17 Time: 1255 I have independently evaluated and examined this patient. I reviewed the chart, the patient's history, and the RADIOLOGY RECEPTIONIST/PA's documented findings as above. We discussed and formulated the assessment and plan as above with additions as below: Mrs. Farris report some awareness of bladder distention since UTI has been treated and some awareness avoiding; she indicates this is something she has not been aware of in quite a while. No ongoing diarrhea or abdominal pain. NAD, alert, abdomen soft, nontender Bladder scans yesterday and this morning have been [phone]; will ask nursing to obtain post void residual by bladder scan after patient believe she is voided. Will ask Dr. Hare to see tomorrow if his scheduled permits; will resume lisinopril instead of initiating amlodipine as patient was previously on this medication and renal function now permits. Hospital Course Summary Disclaimer: The visit summary below is not to be considered part of the above Progress Note. Hospital Course: 11/20/17 Patient presents with urinary symptoms, abdominal pain and diarrhea in conjunction with acute renal failure after initiation of Bactrim; urinalysis grossly abnormal but the patient has been afebrile and CT abdomen and pelvis unremarkable. C. difficile PCR positive-patient at high risk for C. difficile given recurrent antibiotic courses however no evidence of colitis on CT and WBC is normal. Treatment initiated with oral vancomycin and will confirm finding with C. difficile toxin. Continue treatment for UTI with ceftriaxone. I am concerned that the patient has a neurogenic bladder which is being inadequately drained as she has ceased straight cathetering at home and discussed follow-up urology evaluation with the patient. She is interested in a Bender catheter suprapubic catheter but reports her per past urologist was not open to consideration of either. Will arrange urology follow-up at discharge or urology consultation if patient remains in hospital early next week. Acute renal failure due to combination of dehydration, Bactrim use, and HAILEE inhibitor. Bactrim discontinued, lisinopril on hold. Hyperkalemia improved with hydration and with discontinuation of Bactrim. Patient describes significant decline in functional status over the past 6-9 months and will benefit from physical therapy. She reports outpatient therapy was being coordinated but in the past attempts to increase activity aggravated underlying degenerative changes in her knees and were not well tolerated. 11/21/17 Patient improving. Continue Rocephin for UTI until sensitivities are resulted. Today is Day #2 of Rocephin. Continue oral vancomycin for c diff. Creatinine improving 2.6-->2.1-->1.5. Lisinopril remains on hold. Patient hasn't been receiving oxaprozin for her knee arthritis as it is NF. She plans to have her family bring it tomorrow. If renal function continues to improve, should be ok to resume this. 11/23/17 Preliminary sensitivities reviewed- Continue Ceftriaxone for now. Urology referral as outpatient due to neurogenic bladder. 2nd Gm negative pending identification. C. Diff infection is asx right now- continue PO Vanco. SCr is back to baseline now- should be ok to resume home medications. HGB is now stable. Magnesium is replace, normalized. Overall, doing well. Home soon? Lives at home with family. Addendum entered and electronically signed by Barbra Reyes APRN 11/23/17 10:21 : BP trending up- I am going to start low dose Norvasc. May need to titrate up.
[2017-11-23] MEDS ORDERED: AMLODIPINE 2.5 MG TABLET PO SCH (10:30)
[2017-11-23] MEDS: SERTRALINE 100 MG TABLET PO SCH (11:23)
[2017-11-23] MEDS ORDERED: ACETAMINOPHEN 325 MG TABLET PO PRN (14:32)
[2017-11-23] MEDS: LISINOPRIL 10 MG TABLET PO SCH (21:52)
[2017-11-23] MEDS: CEFTRIAXONE 1 G in NS 100 ML IV SCH (21:53)
[2017-11-23] MEDS: DIAZEPAM 5 MG TABLET PO SCH (21:53)
[2017-11-23] MEDS ORDERED: NS FLUSH BAG 500ml IV PRN (21:57)
[2017-11-23] MEDS: SALINE FLUSH 10ml SYRINGE IVF PRN (22:03)
[2017-11-23] MEDS: HYDROCODONE/APAP 5mg/325mg TABLET PO PRN (22:03)
[2017-11-24] MEDS: VANCOMYCIN 250mg/5ml ORAL LIQ PO SCH ×4 (03:17→20:57)
[2017-11-24] MEDS: OMEPRAZOLE 20 MG CAPSULE PO SCH (06:25)
[2017-11-24] MEDS: SERTRALINE 100 MG TABLET PO SCH (08:28)
[2017-11-24] MEDS: ASPIRIN *EC* 81 MG TABLET PO SCH (08:28)
[2017-11-24] MEDS: OXAPROZIN 600 MG PO SCH ×2 (08:29→20:59)
[2017-11-24] MEDS: ENOXAPARIN 40 MG/0.4 ML INJECTION SQ SCH (08:29)
[2017-11-24] MEDS: MAGNESIUM SULFATE 1gm PREMIX 1 GM/100 ML BAG IV SCH ×2 (11:03→12:28)
[2017-11-24] MEDS: SALINE FLUSH 10ml SYRINGE IVF PRN (11:03)
--- NOTE | 2017-11-24 11:17 | Progress Note ---
- Date 11/24/17 Subjective: Josh stated that she had some abdominal cramping yesterday. Today, the cramping has subsided but she feels bloated and feels like she needs to have a BM. She states that it would be easier to have a BM if she could get on the commode, which is what she does at home. Her diarrhea has resolved. She has some sensation as to when her bladder is full. She denies SOA or chest pain. Objective Vital signs: Temperature 96.7 F L 11/24/17 08:08 Pulse Rate 71 11/24/17 08:08 Respiratory Rate 16 11/24/17 08:08 Blood Pressure 144/93 H 11/24/17 08:08 Pulse Oximetry 97 11/24/17 08:09 Height/Weight/BMI: Height 1.57 m Weight 90.5 kg Body Mass Index 35.6 - Constitutional Present: no acute distress, well nourished, well developed, obese - Routine HEENT Exam Head: Present: normocephalic Eye: Present: PERRL. Absent: conjunctival icterus, scleral injection ENT: Present: mucous membranes moist - Routine Respiratory Exam Present: CTA bilaterally (anteriorly) - Routine Cardiovascular Exam Present: RRR, S1, S2 - Routine Abdominal Exam Present: soft, normoactive bowel sounds, non distended, non tender - Routine Extremities Exam Present: no edema, pulses intact - Routine Musculoskeletal Exam Musculoskeletal: Present: no clubbing or cyanosis - Routine Skin Exam Present: intact, dry, warm - Routine Neurological Exam Present: alert, oriented X3, normal speech Results - Labs CBC & Chem 7: 11/24/17 05:13 11/24/17 05:13 Assessment and Plan (1) UTI (urinary tract infection) Current visit: Yes Status: Acute (2) C. difficile colitis Current visit: Yes Status: Acute (3) KALI (acute kidney injury) Current visit: Yes Status: Acute (4) Dehydration Current visit: Yes Status: Acute Assessment and Plan: Assessment Recurrent UTIs Acute renal failure-baseline creatinine 1.1 Diarrhea C. difficile colitis Hyperkalemia, improving Dehydration Neurogenic bladder Hereditary spastic paraplegia (Baclofen Pump) DJD IBS Hypomagnesemia-11/22/17 Plan 11/1617 Mg back down to 1.5, IV bolus ordered., UTI + E. coli and ESBL pos. Klebsiella. Discussed with Dr. Shi (she will be back on 11/26) - if her infectious symptoms are most likely from C. diff then urine culture is irrevelant. However, if her current debility stems more likely from UTI, treat klebsiella with fosfomycin x1 or Merrem. Will continue Rocephin for E. coli and discuss in greater detail with Dr. Arias and Dr. Hare. Consult Dr. Espinoza regarding management of neurogenic bladder. BP improving. Lisinopril resumed yesterday. DVT Prophylaxis: Xarelto GI Prophylaxis: other - Physician Narrative Physician: Josey Arias MD Narrative: Date: 11/24/17 Time: 1800 I have independently evaluated and examined this patient. I reviewed the chart, the patient's history, and the CIVIL PREPAREDNESS OFFICER/PA's documented findings as above. We discussed and formulated the assessment and plan as above with additions as below: Mrs. Farris was seen this morning and later seen in with her son present. Patient reports no urinary symptoms whatsoever and no residual abdominal pain or cramping. Post void residual was up obtained yesterday by bladder scan was 212 mL NAD, alert; abdomen soft/nontender. Repeat urinalysis with persistent pyuria/bacteriuria. Suspect chronic pyuria/bacteriuria; given the atypical symptoms compared to "usual UTI"I favor C. difficile as the presenting infection. Continue treatment for C. difficile; discontinue antibiotics. Patient and her son are interested in rehabilitation options to maximize her functional abilities and PT/OT have recommended rehabilitation to improve endurance and return to prior functional level. Patient was seen by Dr. Hare earlier today and I'm advised he is recommending suprapubic catheter in the near future. I spoke with him prior to his full evaluation. Hospital Course Summary Disclaimer: The visit summary below is not to be considered part of the above Progress Note. Hospital Course: 11/20/17 Patient presents with urinary symptoms, abdominal pain and diarrhea in conjunction with acute renal failure after initiation of Bactrim; urinalysis grossly abnormal but the patient has been afebrile and CT abdomen and pelvis unremarkable. C. difficile PCR positive-patient at high risk for C. difficile given recurrent antibiotic courses however no evidence of colitis on CT and WBC is normal. Treatment initiated with oral vancomycin and will confirm finding with C. difficile toxin. Continue treatment for UTI with ceftriaxone. I am concerned that the patient has a neurogenic bladder which is being inadequately drained as she has ceased straight cathetering at home and discussed follow-up urology evaluation with the patient. She is interested in a Bender catheter suprapubic catheter but reports her per past urologist was not open to consideration of either. Will arrange urology follow-up at discharge or urology consultation if patient remains in hospital early next week. Acute renal failure due to combination of dehydration, Bactrim use, and HAILEE inhibitor. Bactrim discontinued, lisinopril on hold. Hyperkalemia improved with hydration and with discontinuation of Bactrim. Patient describes significant decline in functional status over the past 6-9 months and will benefit from physical therapy. She reports outpatient therapy was being coordinated but in the past attempts to increase activity aggravated underlying degenerative changes in her knees and were not well tolerated. 11/21/17 Patient improving. Continue Rocephin for UTI until sensitivities are resulted. Today is Day #2 of Rocephin. Continue oral vancomycin for c diff. Creatinine improving 2.6-->2.1-->1.5. Lisinopril remains on hold. Patient hasn't been receiving oxaprozin for her knee arthritis as it is NF. She plans to have her family bring it tomorrow. If renal function continues to improve, should be ok to resume this. 11/23/17 Preliminary sensitivities reviewed- Continue Ceftriaxone for now. Urology referral as outpatient due to neurogenic bladder. 2nd Gm negative pending identification. C. Diff infection is asx right now- continue PO Vanco. SCr is back to baseline now- should be ok to resume home medications. HGB is now stable. Magnesium is replace, normalized. Overall, doing well. Home soon? Lives at home with family. 11/1617 Mg back down to 1.5, IV bolus ordered., UTI + E. coli and ESBL pos. Klebsiella. Discussed with Dr. Shi (she will be back on 11/26) - if her infectious symptoms are most likely from C. diff then urine culture is irrevelant. However, if her current debility stems more likely from UTI, treat klebsiella with fosfomycin x1 or Merrem. Will continue Rocephin for E. coli and discuss in greater detail with Dr. Arias and Dr. Hare. Consult Dr. Espinoza regarding management of neurogenic bladder. BP improving. Lisinopril resumed yesterday. Addendum entered and electronically signed by Erika So APRN 11/24/17 12: 29: After my visit, Josh's IV infiltrated. IV mag dc'd, will give MagOx 800 mg PO BID. IV Rocephin dc'd per Dr. Arias - sx more consistently assoc with C. diff infection rather than UTI. Also discussed with Dr. Hare - he will see Josh this afternoon.
[2017-11-24] MEDS: CYANOCOBALAMIN (B-12) 1,000mcg/ml INJECTION IM SCH (11:23)
[2017-11-24] MEDS: MAGNESIUM OXIDE 400 MG TABLET PO SCH ×2 (13:10→20:58)
--- NOTE | 2017-11-24 15:49 | Consultation ---
DATE OF CONSULTATION 11/24/2017 REASON FOR CONSULTATION Neurogenic bladder. HISTORY OF PRESENT ILLNESS This is a 67-year-old female with history of hereditary spastic paraplegia with neurogenic bladder. Her condition has been getting worse over the last 10 years. She was on CIC in the past, however, her has been unable to perform CIC and she has been managing her neurogenic bladder with diapers. She has complete urinary incontinence and wears multiple diapers per day. She is currently admitted to the hospital for a urinary tract infection and IV antibiotics. Urology was consulted because the patient is interested in getting a suprapubic tube. PAST MEDICAL HISTORY 1. Neurogenic bladder. 2. Hereditary spastic paraplegia. 3. Chronic kidney disease. 4. Hypertension. 5. Depression. 6. Morbid obesity. PAST SURGICAL HISTORY 1. Baclofen pump. 2. Cholecystectomy. REVIEW OF SYSTEMS CARDIOVASCULAR: Denies chest pain. Denies palpitations. : Reports urinary incontinence. GI: Reports diarrhea. EXTREMITIES: Cannot move the lower extremities. NEURO: Oriented x3. Cannot move lower extremities. PSYCHIATRIC: Denies depression, denies anxiety. PHYSICAL EXAMINATION GENERAL: In no apparent distress. CARDIOVASCULAR: Regular rate and rhythm. ABDOMEN: Soft. Patient morbidly obese. EXTREMITIES: Cannot move lower extremities. PSYCH: Calm, cooperative. ASSESSMENT 1. Neurogenic bladder. 2. Urinary incontinence. PLAN I had a discussion with the patient and her son about the options. She is interested in obtaining suprapubic tube to manage her neurogenic bladder since she is unable to perform CIC herself and her also cannot help her. We discussed the risks associated with suprapubic tube placement including infection, bleeding and injury to surrounding organs. She would like to proceed. We will plan for suprapubic tube placement in the next 2-3 weeks as an outpatient after she is discharged from the hospital. TITO
[2017-11-24] MEDS: LISINOPRIL 10 MG TABLET PO SCH (20:58)
[2017-11-24] MEDS: DIAZEPAM 5 MG TABLET PO SCH (20:58)
[2017-11-24] MEDS: CEFTRIAXONE 1 G in NS 100 ML IV SCH (21:55)
[2017-11-25] MEDS: VANCOMYCIN 250mg/5ml ORAL LIQ PO SCH ×3 (04:20→14:00)
[2017-11-25] MEDS: OMEPRAZOLE 20 MG CAPSULE PO SCH (05:54)
[2017-11-25] MEDS: ENOXAPARIN 40 MG/0.4 ML INJECTION SQ SCH (10:29)
[2017-11-25] MEDS: CYANOCOBALAMIN (B-12) 1,000mcg/ml INJECTION IM SCH (10:29)
[2017-11-25] MEDS: MAGNESIUM OXIDE 400 MG TABLET PO SCH (10:30)
[2017-11-25] MEDS: ASPIRIN *EC* 81 MG TABLET PO SCH (10:30)
[2017-11-25] MEDS: SERTRALINE 100 MG TABLET PO SCH (10:30)
[2017-11-25] MEDS: OXAPROZIN 600 MG PO SCH (10:32)
[2017-11-25 12:23] VITALS: PULSE 66; RESP 18; TEMP 97.1; O2SAT 98
[2017-11-25 12:34] VITALS: BP 163/76
--- NOTE | 2017-11-25 13:59 | Discharge Summary ---
Discharge Information Date of admission: 11/20/17 20:09 Anticipated date of discharge: 11/25/17 Attending Physician: Josey Arias MD Primary care physician: Albert Ramos MD Consults: 11/24/17 11:10 Physician Consult [CONS] Routine Consulting Provider: Tremayne Hare Reason For Exam: neurogenic bladder ?suprapubic cath Ordering Provider has Notified [employer]: Yes Comment: I've already contacted - Discharge Diagnosis (1) UTI (urinary tract infection) Status: Acute (2) KALI (acute kidney injury) Status: Acute (3) Dehydration Status: Acute (4) C. difficile colitis Status: Acute Acute on chronic renal insufficiency Dehydration Recurrent UTIs with acute hematuria Diarrhea with C difficile infection Neurogenic bladder Hereditary spastic paraplegia Hypomagnesemia Hyperkalemia - Procedures Procedures: None - Laboratory Labs: 11/25/17 04:30 11/25/17 04:30 - Microbiology Microbiology 11/24/17 11:09 Urine, Cath Straight Urine Culture - Preliminary Gram Negative Ildefonso - Radiology Radiology: CT abdomen and pelvis Impression: 1. Patient showed no acute upper abdominal abnormality. 2. No obstruction to bowel or kidneys. 3. Mild diverticulosis although, no suggestion of acute diverticulitis. History of Present Illness HPI: This is a 67 y/o female who has a history of Hereditary spastic paraplegia. The patient has done self cath in the past but now just wears a diaper. The patient's symptom started Friday night. She had blood in her diaper. This is c /w previous UTI's. She has a Rx of Bactrim at home and she started. The patient continued to have diarrhea with 3 stools /day. no blood in her stools. The patient this past Friday did go to [facility] to get her Baclofen pump refilled. The patient still felt bad. The patient had increasing lower abdomen pain and presents to the ED for evaluation. CT of the abdomen does not demonstrate acute process except for cystitis. The patient will be admitted to tx recurrent UTI. The pateint has acute kidney damage most likely from dehydration, bactrim and HAILEE inhibitor. Objective Vital signs: Temperature 97.1 F 11/25/17 12:22 Pulse Rate 66 11/25/17 12:22 Respiratory Rate 18 11/25/17 12:22 Blood Pressure 163/76 H 11/25/17 12:33 Pulse Oximetry 98 11/25/17 12:22 Height/Weight/BMI: Height 1.57 m Weight 91.6 kg Body Mass Index 35.6 Comments: Gen: alert and oriented. NAD Skin: warm and dry HEENT: NC/AT PERRL, EOMI, Sclera, lids and conjunctiva wnl. MMM. OP clear. Neck: No JVD, Carotids 2+ without bruits Lungs: clear. No rales, rhonchi or wheezes CV: regular. No murmur, rub or gallop Abd: soft. +BS. NT/ND MS: No edema. Unable to move LE well. Very weak. Upper ext reasonable. Neuro: No focal deficits Psy: Appropriate mood and affect Hospital Course For more details refer to the complete medical record. Hospital course: 11/20/17 Patient presents with urinary symptoms, abdominal pain and diarrhea in conjunction with acute renal failure after initiation of Bactrim; urinalysis grossly abnormal but the patient has been afebrile and CT abdomen and pelvis unremarkable. C. difficile PCR positive-patient at high risk for C. difficile given recurrent antibiotic courses however no evidence of colitis on CT and WBC is normal. Treatment initiated with oral vancomycin and will confirm finding with C. difficile toxin. Continue treatment for UTI with ceftriaxone. I am concerned that the patient has a neurogenic bladder which is being inadequately drained as she has ceased straight cathetering at home and discussed follow-up urology evaluation with the patient. She is interested in a Bender catheter suprapubic catheter but reports her per past urologist was not open to consideration of either. Will arrange urology follow-up at discharge or urology consultation if patient remains in hospital early next week. Acute renal failure due to combination of dehydration, Bactrim use, and HAILEE inhibitor. Bactrim discontinued, lisinopril on hold. Hyperkalemia improved with hydration and with discontinuation of Bactrim. Patient describes significant decline in functional status over the past 6-9 months and will benefit from physical therapy. She reports outpatient therapy was being coordinated but in the past attempts to increase activity aggravated underlying degenerative changes in her knees and were not well tolerated. 11/21/17 Patient improving. Continue Rocephin for UTI until sensitivities are resulted. Today is Day #2 of Rocephin. Continue oral vancomycin for c diff. Creatinine improving 2.6-->2.1-->1.5. Lisinopril remains on hold. Patient hasn't been receiving oxaprozin for her knee arthritis as it is NF. She plans to have her family bring it tomorrow. If renal function continues to improve, should be ok to resume this. 11/23/17 Preliminary sensitivities reviewed- Continue Ceftriaxone for now. Urology referral as outpatient due to neurogenic bladder. 2nd Gm negative pending identification. C. Diff infection is asx right now- continue PO Vanco. SCr is back to baseline now- should be ok to resume home medications. HGB is now stable. Magnesium is replace, normalized. Overall, doing well. Home soon? Lives at home with family. 11/1617 Mg back down to 1.5, IV bolus ordered., UTI + E. coli and ESBL pos. Klebsiella. Discussed with Dr. Shi (she will be back on 11/26) - if her infectious symptoms are most likely from C. diff then urine culture is irrevelant. However, if her current debility stems more likely from UTI, treat klebsiella with fosfomycin x1 or Merrem. Will continue Rocephin for E. coli and discuss in greater detail with Dr. Arias and Dr. Hare. Consult Dr. Espinoza regarding management of neurogenic bladder. BP improving. Lisinopril resumed yesterday. 11/25/2017 patient resting comfortably when seen by me today. She denies any dysuria and has not known of any further hematuria. She denies fever or chills. She denies headache or vision changes. She denies shortness of breath, PND or orthopnea. She denies chest pain, pressure or tightness. She denies palpitations. She denies nausea, vomiting. She had a bowel movement this morning that was soft but formed. She is eating well. She is very weak particularly in the lower extremities. She is so hoping to go to for rehab. We discussed options once discharge from as her hope is to be able to go back home. She needs to check out assist devices such as a lift chair, hospital bed etc. to improve her independence. has accepted her. Her repeat urinalysis did show gram-negative rods consistent with the previous UA culture. I called Dr. Shi regarding treatment of this and she recommended not treating it as the patient is asymptomatic, afebrile and has no leukocytosis. We will plan on discharging her only on PO vancomycin for her C. difficile infection. She did lose IV access last evening. Her magnesium remains low, but she is getting oral replacement. This will need to be checked in a few days again. From a medical standpoint she is stable to be discharged to the rehab. The plan is for eventual suprapubic catheter as an outpatient. Discharge Plan - Discharge Disposition Discharge Date: 11/25/17 Disposition: 03 [place] [facility] [place] *Condition: Improved Reason For Visit (Visit label in EMR): UTI, acute renal failure, dehydration - Discharge Medications *Discharge Medications: New Cyanocobalamin (B-12) [Vit. B-12] 1,000 mcg IM DAILY ml Magnesium Oxide [Magox] 800 mg PO BID tab Vancomycin Oral Liq 125 mg PO Q6HR po.syringe Acetaminophen [Tylenol] 650 mg PO QID PRN tab PRN Reason: Discomfort Continue Aspirin [Ecotrin] 81 mg PO DAILY Omeprazole 40 mg PO DAILY Baclofen Pump 1 dose INJ DAILY Lisinopril [Prinivil] 10 mg PO HS Hydrocodone/APAP 5/325 [[place] 5/325] 1 - 2 tab PO TID PRN PRN Reason: Pain Sertraline [Zoloft] 200 mg PO DAILY Diazepam [Valium] 5 mg PO HS Estradiol Vag Cream [Estrace Vag Cream] 1 applicatio TOP DAILY Oxaprozin [Daypro] 600 mg PO BID Discontinued Sulfamethox/Tmp Ds *Ed Prepack [Bactrim Ds 800/160 *Ed Prepack*] 1 tab PO BID - Discharge Packet/Instructions *Diet: Regular *Activity: Per rehab, PT *Pain Management/Treatment: Hydrocodone as needed. She also has baclofen pump. *Wound Care: N/A *Expected Signs/Symptoms: N/A *Notify Physician if: N/A *During Business Hours Contact: N/A *After Business Hours Contact: N/A *Pending Lab/Results: Follow up w/your PCP - Referrals/Follow Up *Referrals/Follow Up: Albert Ramos MD [Primary Care Provider] - (When out of rehab for follow up. Pt to call and make appt. ) - Patient Handouts Patient Handouts: Urinary Tract Infection in Women (GEN) - Dismissal Complete Discharge Instructions are:: Complete Physician Narrative - Narrative Attestation Narrative: Date: 11/25/17 Time: 9705
== END 2017-11-25 14:05 | DRG 690 ==
LOC: ED 16:02 → MED 20:09 → SUATTDRO 20:09 → MED 21:00
PROVIDERS: ADMIT Emergency Medicine; ATTEND Internal Medicine